=== PATIENT | female | born 1935 | race Caucasian/White ===

== ENCOUNTER 2016-03-29 01:33 | Day surgery (SDC) | payer MEDICARE, OTHER ==
[2016-03-29] VITALS (11 sets, daily range): BP systolic 98–119; BP diastolic 56–74; PULSE 70–76; RESP 14–20; O2SAT 95–100
[~2016-03-29] VITALS: Ht 160 cm; Wt 67.2 kg
[~2016-03-29 01:33] MED LIST: ACET1TAB12 PO; ATEN100T PO; BIOT10004 PO; BUME2TAB3 PO; CALC-140 PO; CALC500T9 PO; CHOL100045 PO; CREST10T PO; FLEC100T2 PO; SPIR25TA PO; WARF4TAB6 PO; ZYL100 PO
[2016-03-29] MEDS ORDERED: fentaNYL-PF 50 mCg/mL 2 mL Inj ONE (01:34)
[2016-03-29] MEDS ORDERED: Propofol 10,000 mCg/mL 20 mL Inj ONE (01:34)
[2016-03-29] MEDS ORDERED: Lactated Ringer's 1,000 ML IV ONE (06:00)
--- NOTE | 2016-03-29 07:19 | PCM.HPANE ---
Patient Data Surgeon Admitting Provider: Attending Provider:Neymar Garsia MD Primary Care Physician:Sha Melara MD Other Provider:[facility] Reason for Visit Mitral Valve Insufficiency Ht/WT & BMI Body Mass Index Allergies Coded Allergies: Procaine HCl (Verified Allergy, Intermediate, Nausea, 02/05/16) clopidogrel bisulfate (Verified Allergy, Intermediate, Rash,Itching,, 02/04) Past Anesthesia History Anesthesia History: Denies:: Anesthesia Reactions Diabetes History Hx Diabetes?: No MRSA MRSA: No Medications Blood Thinner: Coumadin Hypertension Medication: Yes Home Meds Incl Beta Duncan: Yes Date Beta Duncan Taken: Mar 29, 2016 Time Beta Duncan Taken: 06:00 Active Scripts Bumetanide 2 Mg Tablet2 Mg PO DAILY #30 TABLET Ref 0 Prov:Neftali Amaral 02/09/16 Spironolactone (Aldactone)25 Mg [id number] Mg PO DAILY #30 TABLET Prov:Neftali Amaral 02/09/16 Flecainide Acetate 100 Mg [id number] Mg PO BID #60 TABLET Prov:Neftali Amaral 02/09/16 Reported Medications Calcium Carbonate (Tums)500 Mg Tab.pxch574 Mg PO PRN PRN For Dyspepsia or Heartburn 30 Days 02/05/16 Allopurinol 100 Mg Mfwqeq728 Mg PO DAILY Ref 0 02/05/16 Rosuvastatin Calcium (Crestor)10 Mg Saekgh33 Mg PO HS 30 Days Ref 0 02/05/16 Cholecalciferol (Vitamin D3) (Vitamin D)1,000 Unit Capsule1,000 Unit PO HS #1 BOTTLE Ref 0 02/05/16 Warfarin Sodium 4 Mg Tablet4 Mg PO DAILY 30 Days Ref 0 02/05/16 Calcium Carbonate/Vitamin D3 (Calcium + Vitamin D Tablet)1 Each Tablet1 Each PO BID 02/05/16 Biotin 1,000 Mcg Tab.chew2,500 Mcg PO DAILY 02/05/16 Acetaminophen/Codeine 300-30mg (Tylenol/Codeine #3)1 Each Tablet1 Tablet PO Q4H PRN Pain Ref 0 02/05/16 Atenolol 100 Mg [id number] Mg PO DAILY Ref 0 02/05/16 History History of ENT Problems?: Yes HEENT History: Positive for:: Cataracts (surgery for both eyes) Dysphagia (with past strokes) Hx of Heart Problems?: Yes Cardiovascular History: Positive for:: Cardiac Surgery (pacer) Congestive Heart Failure ("Acute CHF episodes") Edema (trace) Heart Murmur Hypertension Irregular Heartbeat Pacemaker Other Cardiac History: admitted with CHF exacerbation. 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 Hx Musculoskeletal Problems?: Yes Musculoskeletal History: Denies:: Joint Replacement Hx of Psycho/Social Problems?: No Hx Any Other Health Problems?: No Other History: Positive for:: Hospitalization Denies:: Cancer Endocrine Disease Thyroid Disease History Blood Transfusions: Denies:: Blood Transfusions Hx Diabetes: No Hx Alcohol Use: YesHx Substance Use: No Smoking Status: Unknown if Ever Smoker Have You Smoked inLast 12 mo: No Stop/Bang Risk Assessment Category Category 1A: Patient has history of documented sleep apnea, and HAS NOT received any narcotic, sedative or anesthesia administration during this stay. Category 1B: Patient has history of documented sleep apnea, and HAS received any narcotic , sedative or anesthesia administration during this stay Category 2: Patient has SUSPECTED Obstructive Sleep Apnea, and HAS received any narcotic , sedative or anesthesia administration during this stay. Category 3: Patient has SUSPECTED Obstructive Sleep Apnea and HAS NOT received narcotic, sedative or anesthesia administration during this stay. Category 4: Outpatient in Procedural Areas with known sleep apnea or who screen positive for High Risk via the STOP/BANG questionnaire. Exam Exam General Appearance: Alert, Oriented X3, Cooperative, No Acute Distress HEENT/AIRWAY: MP 2, Neck Movement (FROM), Mouth Opening (3FB) Lungs: Normal Air Movement Heart: Exam Unremarkable Plan Impression Patient chart reviewed, patient interviewed and anesthestic plan with risks, benefits, and alternatives discussed, and informed consent obtained. ASA Physical Status: ASA3 Severe Disease (CHF, rhuematoid arthritis) Anesthetic Plan: MAC Bene/Risks/Altern/Consents: Yes HP Complete Prior to Induction: Yes Du Perez MD Mar 29, 2016 07:19
[2016-03-29 08:08] LABS: BASOPHILS % (AUTO) 1.6 % (0-3); EOSINOPHILS % (AUTO) 9.7 % (0-5); Mean Corpuscular Hemoglobin 30.3 pg (27.0-35.0); Mean Corpuscular Volume 95.9 fL (81-100); NEUTROPHILS % (AUTO) 45.8 % (40-74); Platelet Count 207 bil/L (150-400)
[2016-03-29] MEDS ORDERED: BUME1TAB4 PO (08:39)
[2016-03-29] MEDS ORDERED: SPIR25TA3 PO (08:41)
--- NOTE | 2016-03-29 08:43 | NUR ---
Admit note: Patient ambulates into department with family. Their questions are answered , IV's X 2 started and labs are drawn. PT/INR completed. She is prepped for KYLEIGH and heart cath TF.
[2016-03-29] MEDS ORDERED: Benzoc-Butamben-Tetraca Spray 20 Gm Spray TOPICAL ONE (08:56)
[2016-03-29 09:18] LABS: INR 1.67 ratio
--- NOTE | 2016-03-29 09:24 | NUR ---
Post KYLEIGH: Report received from Anaesthesia. Patient tolerated procedure. She is sleepy but arouses. Skin W/D, respirations reqular.
--- NOTE | 2016-03-29 09:27 | PCM.ANEP2 ---
Post Anesthesia Evaluation ASA/CMS Post Anesthesia VS in Patient's Normal Range?: Yes Resp Stable; Airway Patent?: Yes CV Function & Hydration Stable: Yes Mental Status Recovered?: Yes Pain control Satisfactory?: Yes N/V Control Satisfactory?: Yes Du Perez MD Mar 29, 2016 09:27
--- NOTE | 2016-03-29 09:27 | PCM.ANEP1 ---
Post Anesthesia Phase 1 PACU Phase 1 Assessment Vital Signs see anesthesia record Vital Signs Date Time Temp Pulse Resp B/P Pulse Ox O2 Delivery O2 Flow Rate FiO2 03/29/16 09:25 74 16 107/63 99 Nasal Cannula 3.00 03/29/16 09:22 03/29/16 09:22 72 18 99/56 99 Nasal Cannula 3.00 03/29/16 08:29 37.0 70 15 116/69 96 Room Air Anesthetic Administered: MAC Level of Alertness: Awake, talking GILBERT's with Equal Strength: Yes Pain: No Nausea or Vomiting: No Oxygen Delivery: Nasal Cannula Lungs: Normal Air Movement Dermatome Level: Full Sensation Du Perez MD Mar 29, 2016 09:27
[2016-03-29] MEDS ORDERED: Heparin 5,000 Units/500 mL NS Premix IV ONE (09:32)
[2016-03-29] MEDS ORDERED: Heparin 1,000 Units/500 mL NS Premix IV ONE (09:32)
[2016-03-29] MEDS ORDERED: 0.9% Sodium Chloride 50 ML ONE (09:35)
--- NOTE | 2016-03-29 11:02 | NUR ---
Post cardiac cath: Patient returns from [employer]. She is alert and denies pain. Right venous access site is dry and soft. She denies pain. 100% atrially paced activity noted on monitor.
--- NOTE | 2016-03-29 12:29 | DRSVH ---
[facility] [address] [place] [address] Echocardiogram Report Name: PAULA JEAN Date: Height: 62 in Hospital Exam Location: [facility] Weight: 153 lb Gender: Female BSA: 1.7 m2 : 1935 Age: 81 yrs Reason For Study: Mitral Valve- Regurgitation Ordering Physician: Performed By: Yoli Jung Interpretation Summary The mitral valve leaflets appear mildly thickened, but open well. There is mild to moderate mitral annular calcification. There is moderate to severe mitral regurgitation. There is an eccentric jet of mitral regurgitation that is directed posterolaterially. There is moderate tricuspid regurgitation. Right ventricular systolic pressure is estimated to be least 37 mmHg plus the clinically estimated CVP which cannot be estimated on this exam. No other echocardiographic abnormalities seen. The MR is likely due to impared posterior leaflet mobility due to sclerosis. Procedure: Informed consent for Transesophageal Echocardiogram, and use of a contrast agent as needed, was obtained prior to the procedure. The patient was brought to the [facility] in a fasting state. An intravenous line was placed. A topical anesthetic agent was used for oropharangeal anesthesia. A bite block was inserted. Sedation was managed by anesthesiologist; see anesthesiology notes for details. A multifrequency, multiplane transesopheageal echocardiographic endoscope was inserted and manipulated in the standard fashion to achieve multiplane views. The transesophageal probe was passed without difficulty. A 2D transesophageal echocardiogram with spectral and color flow Doppler was performed. The patient's vital signs, including blood pressure, heart rate, pulse oximetry and cardiac rhythm were monitored throughout the procedure and remained stable. The patient tolerated the procedure well without evidence of orophangeal or esophageal trauma. Left Ventricle: The left ventricle is normal in size, wall thickness, and systolic function without any focal wall motion abnormalities. Right Ventricle: The right ventricle is normal in size, thickness and function. Atria: No thrombus is detected in the left atrial appendage. The left atrium is mildly dilated. There is a catheter/pacemaker lead seen in the right atrium. The interatrial septum is intact with no evidence for an atrial septal defect. There is no Doppler evidence for an interatrial shunt. Mitral Valve: The mitral valve leaflets appear mildly thickened, but open well. The mitral valve leaflets are slightly calcified. There is mild to moderate mitral annular calcification. There is no evidence of mitral valve prolapse. There is moderate to severe mitral regurgitation. There is an eccentric jet of mitral regurgitation that is directed posterolaterially. Aortic Valve: The aortic valve is normal in structure and function. No aortic regurgitation is present. Tricuspid Valve: The tricuspid valve leaflets are thin and pliable. Right ventricular systolic pressure is estimated to be least 37 mmHg plus the clinically estimated CVP which cannot be estimated on this exam. There is moderate tricuspid regurgitation. Pulmonic Valve: The pulmonic valve is not well seen, but is grossly normal. There is trace pulmonic regurgitation. Great Vessels: Mild atherosclerotic plaque(s) in the descending aorta. Doppler Measurements & Calculations TR max elaine: 302.3 cm/sec TR max P.5 mmHg Reading Physician:09:51 AM
--- NOTE | 2016-03-29 13:02 | NUR ---
Discharge note: Patient has remained pain-free post cardiac cath. Right groin is soft and dry. Reviewed DC instructions with patient and . Hep locks X 2 DC'd. She ambulates out of department. Home with .
--- NOTE | 2016-05-12 13:15 | CS94 ---
[address] [address] DIAGNOSTIC CARDIAC CATHETERIZATION PATIENT: PAULA JEAN : 1935 MR#: [id number] ADMIT: 03/29/2016 JOB ID: [id number] SERVICE DATE: 03/29/2016 PROCEDURES: 1. Right heart catheterization. 2. Thermodilution cardiac outputs. PROCEDURE IN DETAIL: This patient is brought to the catheterization for a right heart catheterization for evaluation of her mitral insufficiency and symptoms of dyspnea. Following normal prep and drape procedure, her right common femoral vein was accessed with a single wall puncture and an 8-Norwegian 10 cm sheath was inserted without difficulty. The right heart catheter was then advanced to the right heart chambers, where measurements were obtained and positioned out into the right pulmonary artery. Pulmonary capillary wedge pressures were obtained and thermodilution cardiac output measurements performed. Blood samples were then obtained for calculation of patient's A-VO2 content difference. At the end of the procedure, all catheters were removed, and the patient was transferred to the recovery area for monitoring. FINDINGS: The patient's pulmonary capillary wedge pressure averaged 24 mmHg with an A-wave of 18 and a prominent V-wave of 45. Pulmonary artery pressures were moderately increased with a PA pressure of 55/19. Mixed venous O2 saturation was 63%. There was no pulmonic valve gradient, and the mean right atrial pressure was 7. Thermodilution cardiac output was 4.4 L/min, with a cardiac index of 2.6 L/min/m2. A-VO2 content difference was very slightly increased at 5.9 volumes percent. IMPRESSION: This patient has evidence of moderate to moderately severe mitral regurgitation with a normal cardiac output and index. Pulmonary artery pressures are moderately increased. These results will be reviewed with the patient and arrangements for outpatient followup will be made.
== END 2016-03-29 23:59 | disposition home or self-care (01) ==
LOC: SOUO 01:33
PROVIDERS: ATTEND Internal Medicine Cardiovascular Disease
DX: I34.0 Nonrheumatic mitral (valve) insufficiency (principal); I08.1 Rheumatic disorders of both mitral and tricuspid valves; Z86.73 Personal history of transient ischemic attack (TIA), and cerebral infarction without residual deficits; M06.9 Rheumatoid arthritis, unspecified; I48.0 Paroxysmal atrial fibrillation; I12.9 Hypertensive chronic kidney disease with stage 1 through stage 4 chronic kidney disease, or unspecified chronic kidney disease; N18.3 Chronic kidney disease, stage 3 (moderate); Z79.01 Long term (current) use of anticoagulants; E78.5 Hyperlipidemia, unspecified
CPT/HCPCS: 36415; 80048; 85025; 85610; 93451; C1769; C8925; J1644; J3010

== ENCOUNTER 2016-05-12 01:24 | Day surgery (SDC) | payer MEDICARE, OTHER ==
[2016-05-12] VITALS (15 sets, daily range): BP systolic 86–101; BP diastolic 51–75; PULSE 62–93; RESP 10–20; O2SAT 91–99
[~2016-05-12] VITALS: Ht 160 cm; Wt 68.0 kg
[~2016-05-12 01:24] MED LIST changes: +BUME1TAB4 PO; -BUME2TAB3 PO; -FLEC100T2 PO; -SPIR25TA PO; +SPIR25TA3 PO
[2016-05-12] MEDS ORDERED: Propofol 10,000 mCg/mL 20 mL Inj ONE (01:25)
[2016-05-12] MEDS ORDERED: EPHEDrine/NS 5 mg/mL 5 mL Syringe ONE (01:25)
[2016-05-12] MEDS ORDERED: Glycopyrrolate 0.2 mg/mL 5 mL Inj ONE (01:25)
[2016-05-12] MEDS ORDERED: Rocuronium 10 mg/mL 5 mL Inj ONE (01:25)
[2016-05-12] MEDS ORDERED: Neostigmine 1 mg/mL 10 mL Inj ONE (01:25)
[2016-05-12] MEDS ORDERED: Ondansetron 2 mg/mL 2 mL Inj ONE (01:25)
[2016-05-12] MEDS ORDERED: fentaNYL-PF 50 mCg/mL 2 mL Inj ONE (01:25)
[2016-05-12] MEDS ORDERED: Dexamethasone 4 mg/mL Inj ONE (01:25)
[2016-05-12] MEDS ORDERED: Lactated Ringer's 1,000 ML IV SCH (05:00)
[2016-05-12 07:38] LABS: BASOPHILS % (AUTO) 1.4 % (0-3); Mean Corpuscular Hemoglobin 29.7 pg (27.0-35.0); Mean Corpuscular Volume 93.2 fL (81-100); NEUTROPHILS % (AUTO) 54.3 % (40-74); Platelet Count 221 bil/L (150-400)
[2016-05-12 07:50] LABS: INR 2.63 ratio
[2016-05-12] MEDS ORDERED: Vancomycin 1,000 mg/200 mL NS IV SCH (08:00)
[2016-05-12] MEDS ORDERED: Benzoc-Butamben-Tetraca Spray 20 Gm Spray TOPICAL PRN (08:00)
[2016-05-12] MEDS ORDERED: CALC600T12 PO (08:43)
[2016-05-12] MEDS ORDERED: CHOL200047 PO (08:43)
[2016-05-12] MEDS ORDERED: WARF1TAB6 PO (08:43)
[2016-05-12] MEDS ORDERED: WARF3TAB7 PO (08:43)
[2016-05-12] MEDS ORDERED: Heparin 1,000 Units/500 mL NS Premix IV ONE ×2 (11:30→13:23)
[2016-05-12] MEDS ORDERED: Heparin 25,000 Unit/500 mL 0.45% NS Premix IV ONE (11:30)
[2016-05-12] MEDS ORDERED: Heparin 1,000 Unit/1,000mL NS Premix IV ONE (11:30)
[2016-05-12] MEDS ORDERED: 0.9% Sodium Chloride 1,000 ML ONE (11:30)
[2016-05-12] MEDS ORDERED: Heparin 1,000 Unit/mL 10 mL Inj ONE (12:15)
[2016-05-12] MEDS ORDERED: Heparin 10,000 Unit/1,000 mL NS Premix IV ONE (12:31)
--- NOTE | 2016-05-12 12:47 | PCM.HPANE ---
Patient Data Surgeon Admitting Provider: Attending Provider:Kenn Srinivasan MD Primary Care Physician:Sha Melara MD Other Provider: Reason for Visit Persistent Atrial Fibrillation Ht/WT & BMI Height (Feet): 5 Height (Inches): 3.00 Weight (Kilograms): 68.000 Body Mass Index 26.56 Allergies Coded Allergies: flecainide (Verified Allergy, Severe, Nausea,Vomiting, 05/12/16) Gold Salts (Verified Allergy, Intermediate, Rash, 05/12/16) Procaine HCl (Verified Allergy, Intermediate, Nausea, 02/05/16) clopidogrel bisulfate (Verified Allergy, Intermediate, Rash,Itching,, 02/04) Past Anesthesia History Anesthesia History: Denies:: Anesthesia Reactions Diabetes History Hx Diabetes?: No MRSA MRSA: No Medications Blood Thinner: Coumadin Hypertension Medication: Yes Home Meds Incl Beta Duncan: Yes Previous Beta Duncan Dose >24: Previous Dose <24 Hours Reported Medications Warfarin Sodium 3 Mg Tablet3 Mg PO DAILY 30 Days Ref 0 patient takes total 3.5 mg p.o daily 05/12/16 Warfarin Sodium 1 Mg Tablet0.5 Mg PO DAILY 30 Days Ref 0 05/12/16 Cholecalciferol (Vitamin D3) (Vitamin D3)2,000 Unit Capsule2,000 Unit PO DAILY 05/12/16 Calcium Carbonate (Calcium)600 Mg Swxlud176 Mg PO BID 05/12/16 Spironolactone 25 Mg Vvcxth30.5 Mg PO DAILY #30 TABLET Ref 0 03/29/16 Bumetanide 1 Mg Tablet1 Mg PO DAILY Ref 0 03/29/16 Allopurinol 100 Mg Gruuyn875 Mg PO DAILY Ref 0 02/05/16 Rosuvastatin Calcium (Crestor)10 Mg Pcrbis23 Mg PO HS 30 Days Ref 0 02/05/16 Biotin 1,000 Mcg Tab.chew2,500 Mcg PO DAILY 02/05/16 Acetaminophen/Codeine 300-30mg (Tylenol/Codeine #3)1 Each Tablet1 Tablet PO Q4H PRN Pain Ref 0 02/05/16 Atenolol 100 Mg Gydnkx840 Mg PO BID Ref 0 02/05/16 Discontinued Reported Medications Calcium Carbonate (Tums)500 Mg Tab.qikf290 Mg PO PRN PRN For Dyspepsia or Heartburn 30 Days 02/05/16 Cholecalciferol (Vitamin D3) (Vitamin D)1,000 Unit Capsule1,000 Unit PO HS #1 BOTTLE Ref 0 02/05/16 Warfarin Sodium 4 Mg Tablet4 Mg PO DAILY 30 Days Ref 0 02/05/16 Calcium Carbonate/Vitamin D3 (Calcium + Vitamin D Tablet)1 Each Tablet1 Each PO BID 02/05/16 History History of ENT Problems?: Yes HEENT History: Positive for:: Cataracts (surgery for both eyes) Dysphagia (with past strokes) Denies:: Sinus Problem Hx of Heart Problems?: Yes Cardiovascular History: Positive for:: Cardiac Surgery (DDD pacemaker) Congestive Heart Failure ("Acute CHF episodes"; most recent echo EF 45-55% and moderate MR, pulm HTN) Edema (trace) Heart Murmur (Mitral v) Hypertension Irregular Heartbeat (A fib; tachy-julio césar) Pacemaker Denies:: Chest Pain Other Cardiac History: pt here for atrial fib ablation today Hx of Respiratory Problem?: Yes Respiratory History: Positive for:: Chest Surgery (exploratory lung surgery) 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 Hx Musculoskeletal Problems?: Yes Musculoskeletal History: Positive for:: Back Injury (Fx L-3) Denies:: Joint Replacement Hx of Psycho/Social Problems?: No Psycho Social History: Denies:: Anxiety Hx Depression Hx Surgeries?: Yes (Hyster; kidney stones) Hx Any Other Health Problems?: No Other History: Positive for:: Hospitalization (Feb 2016 for CHF) Denies:: Cancer Endocrine Disease Thyroid Disease History Blood Transfusions: Positive for:: Accept Blood Products? Denies:: Blood Transfusions Hx Diabetes: No Hx Alcohol Use: Yes (glass of wine nightly)Hx Substance Use: No Smoking Status: Former Smoker Have You Smoked inLast 12 mo: No Stop/Bang MISSAEL Risk Assessment: Low Risk, <3 Yes Risk Assessment Category Category 1A: Patient has history of documented sleep apnea, and HAS NOT received any narcotic, sedative or anesthesia administration during this stay. Category 1B: Patient has history of documented sleep apnea, and HAS received any narcotic , sedative or anesthesia administration during this stay Category 2: Patient has SUSPECTED Obstructive Sleep Apnea, and HAS received any narcotic , sedative or anesthesia administration during this stay. Category 3: Patient has SUSPECTED Obstructive Sleep Apnea and HAS NOT received narcotic, sedative or anesthesia administration during this stay. Category 4: Outpatient in Procedural Areas with known sleep apnea or who screen positive for High Risk via the STOP/BANG questionnaire. Exam Exam Vital Signs Vital Signs Date Time Temp Pulse Resp B/P Pulse Ox O2 Delivery O2 Flow Rate FiO2 05/12/16 07:40 36.4 77 18 99/69 97 Room Air General Appearance: Alert, Oriented X3, Cooperative, No Acute Distress HEENT/AIRWAY: MP 3 Lungs: Clear to Auscultation, Normal Air Movement Heart: Exam Unremarkable, Regular Rate/Rhythm, No Murmurs/Rubs/Gallops Meds/Labs/Diagnostics Admission Meds Current Medications Sodium Chloride (Normal Saline) 1,000 ml @ 100 mls/hr Q10H IV Last administered on 05/12/16t 09:01; Start 05/12/16 at 08:00 Labs Test 05/12/16 07:00 White Blood Count 6.4th/mm3 (3.8-10.1) Red Blood Count 3.84mil/mm3 (3.90-5.20) Hemoglobin 11.4g/dL (12.0-15.6) Hematocrit 35.8% (35.0-46.0) Mean Corpuscular Volume 93.2fL (81-100) Mean Corpuscular Hemoglobin 29.7pg (27.0-35.0) Mean Corpuscular Hemoglobin Concent 31.8% (32.0-37.0) Red Cell Distribution Width 14.0% (12.3-15.4) Platelet Count 221bil/L (150-400) Neutrophils (%) (Auto) 54.3% (40-74) Lymphocytes (%) (Auto) 24.1% (14-46) Monocytes (%) (Auto) 11.0% (4-12) Eosinophils (%) (Auto) 9.0% (0-5) Basophils (%) (Auto) 1.4% (0-3) Prothrombin Time 28.7sec (8.1-12.5) Prothromb Time International Ratio 2.63ratio Sodium Level 140mEq/L (134-144) Potassium Level 4.4mEq/L (3.5-5.2) Chloride Level 103mEq/L (97-108) Carbon Dioxide Level 23mmol/L (18-29) Blood Urea Nitrogen 43mg/dL (8-27) Creatinine 1.65mg/dL (0.57-1.00) Estimat Glomerular Filtration Rate 43mL/min (>59) Glucose Level 126mg/dL (60-99) Calcium Level 9.4mg/dL (8.5-10.1) Plan Impression Patient chart reviewed, patient interviewed and anesthestic plan with risks, benefits, and alternatives discussed, and informed consent obtained. ASA Physical Status: ASA3 Severe Disease Anesthetic Support Modalities: [place] [employer] Scope (available), Arterial Line (post- induction) Anesthetic Plan: GA Bene/Risks/Altern/Consents: Yes HP Complete Prior to Induction: Yes Willie Best MD May 12, 2016 10:57
[2016-05-12] MEDS ORDERED: Protamine Sulfate 10 mg/mL 5 mL Inj ONE (14:36)
[2016-05-12] MEDS ORDERED: Ondansetron 2 mg/mL 2 mL Inj IVPUSH PRN (15:05)
[2016-05-12] MEDS ORDERED: HYDROcodone-APAP 5-325 mg Tablet PO PRN (15:05)
--- NOTE | 2016-05-12 15:40 | PCM.ANEP1 ---
Post Anesthesia Phase 1 PACU Phase 1 Assessment Vital Signs Vital Signs Date Time Temp Pulse Resp B/P Pulse Ox O2 Delivery O2 Flow Rate FiO2 05/12/16 15:34 35.6 85 12 98/64 95 Room Air Anesthetic Administered: GA Level of Alertness: Awake, talking GILBERT's with Equal Strength: Yes Pain: No Nausea or Vomiting: No Oxygen Delivery: Simple Mask Lungs: Clear to Auscultation, Normal Air Movement Summary VSS Willie Best MD May 12, 2016 15:40
--- NOTE | 2016-05-12 15:41 | PCM.ANEP2 ---
Post Anesthesia Evaluation ASA/CMS Post Anesthesia VS in Patient's Normal Range?: Yes Resp Stable; Airway Patent?: Yes CV Function & Hydration Stable: Yes Mental Status Recovered?: Yes Pain control Satisfactory?: Yes N/V Control Satisfactory?: Yes Willie Best MD May 12, 2016 15:41
--- NOTE | 2016-05-12 16:13 | PROCED ---
[address] [address] PROCEDURE NOTE PATIENT: PAULA JEAN : 1935 MR#: [id number] ADMIT: 05/12/2016 JOB ID: [id number] DATE OF SERVICE: 05/12/2016 PREOPERATIVE DIAGNOSIS(ES): 1. Symptomatic drug refractory paroxysmal atrial fibrillation. 2. Sick sinus syndrome with dual-chamber pacemaker in place. POSTOPERATIVE DIAGNOSIS(ES): 1. Symptomatic drug refractory paroxysmal atrial fibrillation. 2. Sick sinus syndrome with dual-chamber pacemaker in place. PROCEDURES PERFORMED: 1. Comprehensive electrophysiology study. 2. Three-dimensional electroanatomical mapping using the CARTO 3 system. 3. Atrial fibrillation ablation with pulmonary vein isolation. 4. Transseptal puncture x2. 5. Intracardiac echocardiography. 6. Barium esophagram. 7. Cardioversion. 8. Sonia-procedure pacemaker programming and reprogramming. 9. Fluoroscopy. SURGEON: eKnn Srinivasan MD, electrophysiology attending. ASSISTANTS: Mir Jolly, Aquiles Leal PA-C, Ginette Srinivasan. ANESTHESIA: General endotracheal anesthesia was undertaken for this case. INDICATION: The patient is a pleasant 81-year-old woman with significant mitral regurgitation being addressed with potential mitral clip procedure, dominant paroxysmal symptomatic atrial fibrillation which is very refractory, sick sinus syndrome with a dual-chamber pacemaker in place. After discussion of risks and benefits of catheter-based mapping ablation for her atrial fibrillation, she opted to proceed. PROCEDURAL DESCRIPTION: Following informed signed consent, the patient was taken to the EP laboratory in a fasting, nonsedated state, where she was prepped and draped in the usual sterile fashion. She underwent a preprocedural transesophageal echocardiogram by Dr. Patten, confirming lack of intracardiac thrombus. Please see separate dictated report for the details of that procedure. The bilateral groins were then infiltrated with 1% lidocaine. Then, using modified Seldinger technique, two 8-Icelandic sheaths were inserted into the right femoral vein. A 7 and a 10.5-Icelandic sheaths were inserted into the left femoral vein. Under fluoroscopic guidance, a deflectable decapolar catheter was advanced in the coronary sinus with most proximal bipoles at the os of the sinus. An intracardiac echocardiography probe was advanced to the RV outflow tract and used to visualize the pericardial space. A trivial, hemodynamically insignificant pericardial effusion was noted at the onset of the case prior to any ablation. The ICE probe was pulled back into the right atrium and used to visualize the interatrial septum in anticipation of transseptal puncture. Two transseptal punctures were performed in an identical fashion. Each of the short 8-Icelandic sheaths in the right groin were exchanged over a long wire for a Stevenson sheath dilator and a [place] needle. The entire system was used to engage the interatrial septum. Then, under fluoroscopic guidance and pressure guidance, the septum was traversed twice to deploy the two Stevenson sheaths into the left atrium. The patient was heparinized for a goal ACT of 350 to 400 seconds for the entire time we were in the left atrium following the first and preceding the second transseptal puncture. A resurvey of the pericardial space showed no evidence of change in the tiny effusion. Through the two [place] sheaths an F curve SmartTouch irrigated ablation catheter was advanced as was a PentaRay 20 pole catheter. A three-dimensional electroanatomical mapping at the left atrium, pulmonary veins, and left atrial appendage was created using the CARTO 3 system. The patient was in atrial fibrillation at the onset of the case. The left common pulmonary vein was isolated first for entrance block. The patient was then cardioverted with a 200 joule biphasic synchronized shock. Exit block was confirmed. We then addressed entrance and exit blocks in the right upper and right lower pulmonary veins in the order. Once entrance and exit blocks were achieved in all pulmonary veins, we blocked the left atrium, turned off heparin and resurveyed the pericardial space confirmed lack of effusion. During course of this study, we did a comprehensive electrophysiology study with right atrial pacing recording, right ventricular packing recording, His bundle recording and left atrial pacing recording. The patient's pacemaker was interrogated pre and post procedurally showing intact lead parameters, and she was switched from VVI backup pacing to DDDR pacing at the offset of the case. All catheters and sheaths removed once the patient's heparin was reversed with protamine. She was transferred to the [facility] for monitoring and bedrest. COMPLICATIONS: None. ESTIMATED BLOOD LOSS: 10 to 20 cc. FINDINGS: 1. Baseline rhythm is atrial fibrillation. Post ablation, she was in atrially paced, ventricularly sensed rhythm with a QRS duration of 75 msec. 2. Intracardiac intervals: AH interval 149 msec. HV 54 msec. 3. Retrograde conduction: 2:1 AV conduction at 600 msec with concentric atrial activation. 4. Atrial fibrillation ablation with pulmonary vein isolation entrance and exit blocks described above for all four pulmonary veins. Please note that a barium esophagram was performed prior to any ablation posterior aspect of the right lower pulmonary vein. Lower wattage shorter duration portillo were placed in this area while monitoring the esophageal temperature. IMPRESSION: Successful pulmonary vein isolation procedure for symptomatic refractory atrial fibrillation. PLAN: 1. Bedrest x4 hours. 2. Monitoring overnight. 3. Continue warfarin. 4. Amiodarone 200 mg p.o. b.i.d. for two weeks, followed by 200 mg daily thereafter for the first three months post ablation. 5. Follow up with Aquiles Leal PA-C in one month, and with me in three months. ATTENDING STATEMENT: Kenn Srinivasan MD, electrophysiology attending, was present for and supervised/performed all aspects of this procedure.
--- NOTE | 2016-05-12 18:35 | NUR ---
STEPHEN Care of patient assumed on return from irrigation laborer at 1535. Patient sleeping but wakes to voice. Denies pain. Family at bedside. Right and left groin without bleeding or hematoma. Pedal pulses present. Taking sips PO. Díaz catheter in place. Transferred to room 2021 by bed at 1815. Report to receiving RN.
--- NOTE | 2016-05-12 18:46 | NUR ---
Transfer to [facility] Pt up to floor from [facility] at 18:20. Report received from SUNG Pantoja. Pt placed on tele, vitals taken. SPo2 85% on RA, placed on 3L NC, SPO2 up to 95%. Pt is hypotensive 90s/60s, reports this is normal for her. Bedrest till 1930.
[2016-05-12] MEDS ORDERED: Codeine-APAP 30-300 mg Tablet PO PRN (19:20)
--- NOTE | 2016-05-12 19:39 | PCM.CONPHA ---
Subjective Date of Service: May 12, 2016 Reason for Pharmacy Consult: Anticoagulation Management Objective Vital Signs Date Time Temp Pulse Resp B/P Pulse Ox O2 Delivery O2 Flow Rate FiO2 05/12/16 18:33 36.4 62 16 90/51 94 Nasal Cannula 3.00 05/12/16 18:32 80 05/12/16 18:03 77 16 88/51 05/12/16 18:02 77 16 88/51 94 Room Air 05/12/16 17:30 73 14 89/54 05/12/16 17:30 73 14 89/54 95 Oxy Mask 6.00 05/12/16 17:00 72 12 86/75 05/12/16 17:00 72 12 86/75 95 Oxy Mask 6.00 05/12/16 16:45 72 12 95/51 96 Oxy Mask 6.00 05/12/16 16:45 72 12 95/51 05/12/16 16:30 70 10 91/55 05/12/16 16:30 70 10 91/55 95 Oxy Mask 6.00 05/12/16 16:15 70 12 87/57 99 Oxy Mask 6.00 05/12/16 16:15 70 12 87/57 05/12/16 16:00 72 18 98/60 98 Oxy Mask 6.00 05/12/16 16:00 72 18 98/60 05/12/16 15:45 85 20 101/59 91 Nasal Cannula 4.00 05/12/16 15:45 85 20 101/59 05/12/16 15:40 93 10 97/66 94 mask 10.00 05/12/16 15:40 Simple Mask 05/12/16 15:34 35.6 85 12 98/64 95 mask 10.00 05/12/16 07:40 36.4 77 18 99/69 97 Room Air Weight (Kilograms): 68.000 Height (Feet): 5 Height (Inches): 3.00 Test 05/12/16 07:00 White Blood Count 6.4th/mm3 (3.8-10.1) Red Blood Count 3.84mil/mm3 (3.90-5.20) Hemoglobin 11.4g/dL (12.0-15.6) Hematocrit 35.8% (35.0-46.0) Mean Corpuscular Volume 93.2fL (81-100) Mean Corpuscular Hemoglobin 29.7pg (27.0-35.0) Mean Corpuscular Hemoglobin Concent 31.8% (32.0-37.0) Red Cell Distribution Width 14.0% (12.3-15.4) Platelet Count 221bil/L (150-400) Neutrophils (%) (Auto) 54.3% (40-74) Lymphocytes (%) (Auto) 24.1% (14-46) Monocytes (%) (Auto) 11.0% (4-12) Eosinophils (%) (Auto) 9.0% (0-5) Basophils (%) (Auto) 1.4% (0-3) Prothrombin Time 28.7sec (8.1-12.5) Prothromb Time International Ratio 2.63ratio Sodium Level 140mEq/L (134-144) Potassium Level 4.4mEq/L (3.5-5.2) Chloride Level 103mEq/L (97-108) Carbon Dioxide Level 23mmol/L (18-29) Blood Urea Nitrogen 43mg/dL (8-27) Creatinine 1.65mg/dL (0.57-1.00) Estimat Glomerular Filtration Rate 43mL/min (>59) Glucose Level 126mg/dL (60-99) Calcium Level 9.4mg/dL (8.5-10.1) Assessment/Plan Assessment/Plan Warfarin per Rx Indication: A-Fib INR Goal : 2 - 3 Today's INR: 2.63; Therapeutic range so will continue home dose of 3.5mg Daily INR ordered Dung Serrato PharmD May 12, 2016 19:39
[2016-05-12] MEDS ORDERED: Furosemide 10 mg/mL 2 mL Inj IV ONE (22:00)
[2016-05-13 00:34] VITALS: BP 93/60; PULSE 68; RESP 16; O2SAT 98
--- NOTE | 2016-05-13 00:46 | NUR ---
Post cath Patient resting in bed, denies any chest pain and groin pain, groin sites intact, very scant oozing under bio-occlusive dressing, pulses palpable, BP remained stable with reading of 93/60 after 20mg Lasix and Amiodarone PO, orders to hold Atenolol from Dr. Srinivasan cardiology, pleasant and cooperative, admission screening done, no distress noted, will continue to monitor. Addendum: 05/13/16 at 0053 by CASE RINCON RN Amended: Links added.
[2016-05-13 04:06] LABS: INR 2.98 ratio
--- NOTE | 2016-05-13 04:25 | NUR ---
Report Report given to Andressa ALMARAZ, all questions answered, patient resting in bed, no distress noted.
[2016-05-13 05:57] VITALS: BP 84/56; PULSE 72; RESP 16; O2SAT 95
[2016-05-13 06:16] VITALS: PULSE 82
--- NOTE | 2016-05-13 06:29 | NUR ---
Blood Pressure Pt's blood pressure is 84/56. She is asymptomatic. She states that her normal BP is in the 90s systolic. Awake and drinking water. Visiting with her . Understands to speak with the nurse prior to getting up OOB> Will cont to monitor
[2016-05-13] MEDS ORDERED: Pantoprazole 40 mg ER24 Tablet PO SCH (06:30)
[2016-05-13 07:13] VITALS: O2SAT 94
[2016-05-13 08:00] VITALS: BP 106/68; PULSE 78; PULSE 84; RESP 16; O2SAT 96
[2016-05-13] MEDS ORDERED: Calcium Carbonate (Oyster Shell) 500 mg Tablet PO SCH (08:00)
--- NOTE | 2016-05-13 09:15 | PCM.DIMED ---
Discharge Instructions Date of Service May 13, 2016 Dates of Hospitalization Discharge Diagnosis Discharge Diagnosis Paroxysmal Atrial Fibrillation Hypertension Mitral Valve Insufficiency Tachycardia / Bradycardia Syndrome Diet Heart Healthy Activity Other (To prevent bleeding, do not lift, push or pull more than 10 lbs for 1 week. To prevent infection, do not sit in a bath tub, hot tub or pool for one week.) Call your provider Fever or Chills, Bleeding, Excessive diarrhea, Weakness (unilateral) Patient Instructions Mid-level Provider (F9): Aquiles Leal PA-C Follow-up with Mid-level in: 5 weeks Aquiles Leal PA-C May 13, 2016 09:15
[2016-05-13] MEDS ORDERED: AMIO200T PO (09:20)
[2016-05-13] MEDS ORDERED: PANT40TA3 PO (09:20)
--- NOTE | 2016-05-13 10:00 | DIS ---
[address] [address] DISCHARGE SUMMARY PATIENT: PAULA JEAN : 1935 MR#: [id number] ADMIT: 05/12/2016 JOB ID: [id number] DIS: REASON FOR ADMISSION: Atrial fibrillation ablation procedure. CHIEF COMPLAINT: Rapid palpitations and shortness of breath. BRIEF HISTORY: The patient is a pleasant 81-year-old woman with preserved LV function with severe mitral regurgitation and paroxysmal atrial fibrillation. She also has tachycardia/bradycardia syndrome and has had a dual-chamber pacemaker implanted since 2013. She has been having increasing occurrence and overall burden of atrial fibrillation, and has had at least three hospitalizations in the recent past for this problem, along with pulmonary congestion. She was referred to Dr. Kenn Srinivasan for an ablation procedure. COURSE IN HOSPITAL: The patient was admitted through the [facility] and taken to the catheterization laboratory, where she was placed under general anesthesia by the anesthesiologist. She then had a KYLEIGH, which ruled out any left atrial thrombus. The ablation procedure was then undertaken and completed without incident. After removal of the femoral sheaths, hemostasis was obtained and she was awakened from anesthesia. She was then transferred back to the [facility] for recovery and then up to the [facility] for overnight observation. She did well overnight, her vital signs remained stable, although she was slightly hypotensive. In the morning she was ambulatory without difficulty, was not lightheaded and denied chest pain or femoral access site pain. Her EKG showed a paced atrial rhythm. DISPOSITION: The patient was discharged home in good condition with a followup appointment at the [facility] Cardiology office in one month. She was asked not to lift, push, or pull more than 10 pounds for one week to prevent bleeding, and not sit in the hot tub, bathtub, or pool for one week to prevent infection. She will follow her heart healthy diet and take medications as prescribed. DISCHARGE MEDICATIONS: 1. Amiodarone 200 mg b.i.d. 2. Pantoprazole 40 mg daily for 1 month. 3. Acetaminophen/codeine 300/30 mg 1 tablet p.o. q.4 h. p.r.n. pain. 4. Allopurinol 100 mg daily. 5. Atenolol 100 mg b.i.d. 6. Biotin 2500 mcg daily. 7. Bumetanide 1 mg daily. 8. Calcium carbonate 600 mg b.i.d. 9. Vitamin D3, 2000 units daily. 10. Rosuvastatin 10 mg q.h.s. 11. Spironolactone 12.5 mg daily. 12. Warfarin 1 mg tablet, 0.5 mg daily, along with warfarin 3 mg daily or as directed by her Anticoagulation Clinic. FINAL DIAGNOSES: 1. Paroxysmal atrial fibrillation. 2. Tachycardia/bradycardia syndrome. 3. Dual-chamber pacemaker since 2013. 4. Hypertension. 5. Mitral insufficiency.
--- NOTE | 2016-05-13 10:46 | DRSVH ---
[facility] [address] [place] [address] Echocardiogram Report Name: PAULA JEAN Date: Height: 63 in Hospital Exam Location: [facility] Weight: 150 lb Gender: Female BSA: 1.7 m2 : 1935 Age: 81 yrs BP: 99/69 mmHg Reason For Study: PERSISTENT AFIB Ordering Physician: KWASI ANAYA Performed By: Andrew Garcia Referring Physician: Dr. Sha Melara Interpretation Summary 1. Grossly normal left ventricular size with normal systolic function. 2. No thrombus appreciated in the sampled segments of the left atrial appendage or atrium. 3. At least moderate mitral regurgitation Procedure: Informed consent for Transesophageal Echocardiogram, and use of a contrast agent as needed, was obtained prior to the procedure. The patient was brought to the cardiac catheterization lab in a fasting state. An intravenous line was placed. A topical anesthetic agent was used for oropharangeal anesthesia. A bite block was inserted. Sedation was managed by anesthesiologist; see anesthesiology notes for details. A multifrequency, multiplane transesopheageal echocardiographic endoscope was inserted and manipulated in the standard fashion to achieve multiplane views. The transesophageal probe was passed without difficulty. A 2D transesophageal echocardiogram with spectral and color flow Doppler was performed. The usual views were obtained; basal, mid-esophageal, transgastric and aortic views. The patient's vital signs, including blood pressure, heart rate, pulse oximetry and cardiac rhythm were monitored throughout the procedure and remained stable. The patient tolerated the procedure well without evidence of orophangeal or esophageal trauma. The patient was in atrial fibrillation with controlled ventricular rate during the exam. There were no complications. Left Ventricle: The left ventricle is grossly normal size. Left ventricular systolic function is normal. Atria: No thrombus appreciated in the sampled segments of the left atrial appendage or atrium. No color doppler evidence for an interatrial shunt. Mitral Valve: At least moderate mitral regurgitation. Aortic Valve: The aortic valve is trileaflet. The aortic valve opens well. No aortic regurgitation is present. Tricuspid Valve: The tricuspid valve is normal. There is moderate tricuspid regurgitation. Pulmonic Valve: The pulmonic valve is normal in structure and function. There is no pulmonic valvular regurgitation. Reading Physician:10:46 AM
--- NOTE | 2016-05-13 10:54 | NUR ---
Discharge Discharge orders received. All discharge instructions given to patient and spouse-- both verbalized understanding of all instructions. R and L groin sites assessed prior to discharge. Both w/o bleeding or hematoma and OpSite dressings changed to bandaids. Instructions for care given. Both IVs dcd. Patient dcd to home with spouse via w/c at 1050.
== END 2016-05-13 10:56 | disposition home or self-care (01) ==
LOC: SOUO 01:24 → PCC 17:18 → SOUO 05-13 10:56
PROVIDERS: ATTEND Internal Medicine Cardiovascular Disease
DX: I48.0 Paroxysmal atrial fibrillation (principal); I49.5 Sick sinus syndrome; I34.0 Nonrheumatic mitral (valve) insufficiency; Z95.0 Presence of cardiac pacemaker; E78.5 Hyperlipidemia, unspecified; I12.9 Hypertensive chronic kidney disease with stage 1 through stage 4 chronic kidney disease, or unspecified chronic kidney disease; N18.3 Chronic kidney disease, stage 3 (moderate); Z86.73 Personal history of transient ischemic attack (TIA), and cerebral infarction without residual deficits; Z79.01 Long term (current) use of anticoagulants
CPT/HCPCS: 36415; 80048; 85025; 85610; 93005; 93613; 93656; 93662; C1730; C1732; C1759; C1769; C1894; C8925; J1100; J1644; J1940; J2405; J2710; J2720; J3010; J7030; J7040

== ENCOUNTER 2016-05-14 10:36 | Inpatient (IN) | payer MEDICARE, OTHER ==
[~2016-05-14] VITALS: Ht 160 cm; Wt 71.0 kg
[2016-05-14] VITALS (11 sets, daily range): BP systolic 90–103; BP diastolic 55–71; PULSE 70–85; RESP 14–25; O2SAT 93–100
[~2016-05-14 10:36] MED LIST changes: +AMIO200T PO; -CALC-140 PO; -CALC500T9 PO; +CALC600T12 PO; -CHOL100045 PO; +CHOL200047 PO; +PANT40TA3 PO; +WARF1TAB6 PO; +WARF3TAB7 PO; -WARF4TAB6 PO
--- NOTE | 2016-05-14 10:43 | ED.REPORT ---
HPI-Chest Pain 40 and Over Date of Service May 14, 2016 ED Provider: Jeffrey Israel DO The patient is a pleasant 81-year-old woman with preserved LV function with severe mitral regurgitation and paroxysmal atrial fibrillation. She also has tachycardia/bradycardia syndrome and has had a dual-chamber pacemaker implanted since 2013. She presents to the ED today accompanied by her due to SOB onset yesterday. Pt had an ablation done two days ago (05/12/16) with Dr. Gibbs and was released from the hospital yesterday. She c/o associated chest pressure that began this morning and SOB with any sort of mild exertion. Pt thinks that she has gained 10 lbs in the past 24 hrs. She took Lasix this morning. Nursing Notes Stated Complaint: CHEST PAIN Nursing Notes Reviewed: Yes Allergies: Coded Allergies: flecainide (Verified Allergy, Severe, Nausea,Vomiting, 05/12/16) Gold Salts (Verified Allergy, Intermediate, Rash, 05/12/16) Procaine HCl (Verified Allergy, Intermediate, Nausea, 02/05/16) clopidogrel bisulfate (Verified Allergy, Intermediate, Rash,Itching,, 02/04) Scheduled Allopurinol (Allopurinol) 100 Mg Tablet 100 MG PO DAILY Amiodarone (Amiodarone) 200 Mg Tablet 200 MG PO Q12 Atenolol (Atenolol) 100 Mg Tablet 100 MG PO DAILY Biotin (Biotin) 1,000 Mcg Tab.chew 2,500 MCG PO DAILY Bumetanide (Bumetanide) 1 Mg Tablet 1 MG PO DAILY Calcium Carbonate (Calcium) 600 Mg Tablet 600 MG PO BID Cholecalciferol (Vitamin D3) (Vitamin D3) 2,000 Unit Capsule 2,000 UNIT PO DAILY Pantoprazole DR (Pantoprazole DR) 40 Mg Tablet.dr 40 MG PO 0630 Rosuvastatin Calcium (Crestor) 10 Mg Tablet 10 MG PO HS Spironolactone (Spironolactone) 25 Mg Tablet 12.5 MG PO DAILY Warfarin Sodium (Warfarin Sodium) 1 Mg Tablet 0.5 MG PO DAILY Warfarin Sodium (Warfarin Sodium) 3 Mg Tablet 3 MG PO DAILY patient takes total 3.5 mg p.o daily Scheduled PRN Acetaminophen/Codeine 300-30mg (Tylenol/Codeine #3) 1 Each Tablet 1 TABLET PO Q4H PRN PRN Pain General Time Seen by MD: 10:42 Chief Complaint Shortness of breath Hx Obtained From: Patient Arrived By: Walk-in Sudden in Onset?: Yes Onset Occurred: Just prior to arrival Symptom Duration: Since onset Location: : Chest left Quality: Pressure Radiation: : Does not radiate Severity: Current: Mild Recent Healthcare: Recent doctor visit, Recent hospitalization, Previous surgery Similar Sx Previous: Yes Past Medical History Past Medical History Notes: Seen in ED 01/14/16 for CHF Negative Nuclear Stress Test 07/15/15 Echo 06/2015 EF 60-65% Cardiology: Dr. 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 Rheumatoid arthritis. Past Surgical History Pacemaker placement Frozen shoulder surgery. Kidney stone removal Lung biopsy, which showed rheumatoid arthritis-related changes. Reports: Appendectomy, Hysterectomy Smoking History Former Smoker Social History Alcohol Use: Denies alcohol use Other Social History: Ambulatory Status Independent Review of Systems Respiratory: Reports: Shortness of breath Cardiovascular: Reports: Chest pain Complete sys rev & neg: except as marked. Endocrine: Reports: Weight gain Physical Exam Physical Exam Notes: Initial Vital Signs Vital Signs (First) Date Time Temp Pulse Resp B/P Pulse Ox O2 Delivery O2 Flow Rate FiO2 05/14/16 10:47 36.3 70 14 103/65 100 Room Air 05/14/16 12:02 2 Initial VS: Reviewed Head / Eyes: Atraumatic, Normocephalic, PERRL ENT: Mucous membranes moist, Conjunctiva normal, No scleral icterus Extremities: Vascular intact, Neuro intact, No swelling, No tenderness Skin: Warm, Dry, No cyanosis Neurologic: Alert, Oriented, Nonfocal Psychiatric: Mood/affect normal, Behavior normal, Normal thought content General/Constitutional: Awake, Alert, No acute distress, Well appearing Respiratory / Chest: Atraumatic, Breath sounds NL, Breath sounds = bilat, No respiratory distress Heart Sounds / Murmur: Positive: Systolic murmur present.. (III/) Abdomen: Atraumatic, Soft, Non-tender, McBurney's non-tender, No guarding, No rebound, BS normoactive Neck: Atraumatic, Supple, Non-tender, No midline vertebral tend Neck Vascular: Positive: JVD mild Interpretation & Diagnostics Lab Results Interpretation Result Diagram: 05/16/1661405/16/16614 Test 05/14/16 11:25 05/14/16 14:45 05/14/16 15:49 Magnesium Level 1.9mg/dL (1.6-2.6) Hold [place] Top Tube Received (Received) Urine Color Straw (YELLOW) Urine Appearance Hazy (CLEAR,HAZY) Urine pH 5.5 (5.0-8.0) Urine Specific [place] 1.010 (1.003-1.035) Urine Protein Negativemg/dL (NEG,TRACE) Urine Glucose (UA) Negativemg/dL (NEGATIVE) Urine Ketones Negativemg/dL (NEGATIVE) Urine Occult Blood Negative (NEGATIVE) Urine Nitrite Negative (NEGATIVE) Urine Bilirubin Negative (NEGATIVE) Urine Urobilinogen Normalmg/dL (NORMAL) Urine Leukocyte Esterase Negative (NEGATIVE) Urine RBC 0-2/hpf (0-2) Urine WBC 0-5/hpf (0-5) Urine Epithelial Cells Occasional/hpf (NONE-MOD) Urine Crystals None seen (NONE SEEN) Urine Bacteria None/hpf (NONE-FEW) Urine Hyaline Casts Occasional/lpf (NONE) Urine Granular Casts None seen (NONE SEEN) Urine Waxy Casts None seen (NONE SEEN) Urine Red Blood Cell Casts None seen (NONE SEEN) Urine White Blood Cell Casts None seen (NONE SEEN) Urine Mucus None seen (None Seen) Urine Trichomonas None seen (NONE SEEN) Urine Yeast None (NONE SEEN) Urinalysis Comment None Urine Culture Reflexed Not indicated Lactic Acid Level 1.1mmol/L (0.4-2.0) Troponin T 0.162ug/L (0.0-0.011) Pro-B-Type Natriuretic Peptide 3084pg/mL (0-738) Procalcitonin 0.07ng/mL (0.00-0.08) ECG Interpretation ECG Interpretation: atrial paced complex (rate 70) stable when compared to EKG from 05/13/16 Time: 10:50 Interpreted by: ED physician X-Ray Chest Interpretation Chest Xray Interpretation: IMPRESSION: Overall no interval change since 02/07/16. Redemonstration of bibasilar scarring/atelectasis. Dictated by: Gerry Hogan M.D. on 05/14/2016 at 11:47 Approved by: Gerry Hogan M.D. on 05/14/2016 at 11:48 View: Portable Interpretation / Wet Read by: Interpret - Radiologist Re-Eval/Medical Decision Med Decision/Clinical Course 81-year-old female with a history of paroxysmal atrial fibrillation, chronic systolic heart failure, and mitral insufficiency returns to the hospital the day after being discharged. Previous admission was for EP ablation for refractory paroxysmal atrial fibrillation. She notes she has not urinated significantly in the past 24 hours and that her diuretics do not seem to be working. She feels significantly more short of breath than yesterday. Notes that she has gained approximately 10 pounds and feels puffy in her face. Questionable JVD is noted on exam and there is no lower extremity edema or rales in the lungs, however given the weight gain and the puffiness in her face as well as the patient's report of significantly decreased urination she will be diuresed with IV Lasix after consultation with Dr. Garsia. Her creatinine is at baseline. Troponin is elevated today which is likely related to her ablation. Dr. Garsia recommends admission and will see the patient tomorrow in consultation. Time of Eval: 13:14 Patient Status: Condition improved Re-Evaluation/Progress Note: Pt rechecked. Her breathing has improved with oxygen. Informed family of elevated troponin levels and plan for admission. Plan to consult with her agency legal counsel, Dr. Neymar Garsia. Consultation : Referral / Consult Name: Neymar Garsia MD Consulted With: Cardiology Call Returned at: 13:21 Rail Car Driver: Agrees with eval, Agrees with plan, Accepts admit Note: Case discussed. Dr. Wayne agrees with plan for admission, echocardiogram, IV, and lasix. Counseled Regarding: Diagnosis, Lab results, Need for admission Discharge & Departure Primary Impression: Shortness of breath Additional Impressions: Mitral insufficiency Cardiac valve disease etiology: etiology unspecified Qualified Code: I34.0 - Nonrheumatic mitral (valve) insufficiency Elevated troponin CHF (congestive heart failure) Congestive heart failure type: unspecified congestive heart failure type Congestive heart failure chronicity: unspecified congestive heart failure chronicity Qualified Code: I50.9 - Heart failure, unspecified Disposition: ADMITTED TO HOSPITAL Discharge Condition All VS Reviewed: Yes Condition: Stable Referrals: Sha Melara MD (PCP) Scribe Attestation Portion of this note were transcribed by Briana Pena. IDr. Israel, personally performed the history, physical exam, and medical decision-making: I reviewed and confirmed the accuracy for the information in the transcribed note. Signed by: sunil Carrera, 05/14/16 1330 copies to: Sha Melara MD, Gary R DO May 14, 2016 10:43 Briana Pena May 14, 2016 11:10
[2016-05-14 11:37] LABS: BASOPHILS % (AUTO) 0.7 % (0-3); EOSINOPHILS % (AUTO) 3.7 % (0-5); MONOCYTES % (AUTO) 10.5 % (4-12); Mean Corpuscular Hemoglobin 29.7 pg (27.0-35.0); Mean Corpuscular Volume 94.4 fL (81-100); NEUTROPHILS % (AUTO) 61.7 % (40-74); Platelet Count 194 bil/L (150-400)
--- NOTE | 2016-05-14 11:50 | DRSVH ---
PROCEDURE: X-RAY CHEST ONE VIEW, PORTABLE ([id number]) INDICATIONS: PAIN TECHNIQUE: One view of the chest was acquired. COMPARISON: [facility], CR, XR CHEST 1VW (PORTABLE), 02/07/2016, 4:55. FINDINGS: Surgical changes and devices: Dual-lead cardiac pacer Lungs and pleura: No pleural effusions or pneumothorax. Bibasilar scarring/atelectasis, grossly unch anged since 02/07/16. No definite new focal consolidation. Mediastinum: Mediastinal contours appear normal. Heart size is normal. Bones and chest wall: No suspicious bony lesions. Overlying soft tissues appear unremarkable. Bilat eral shoulder degeneration IMPRESSION: Overall no interval change since 02/07/16. Redemonstration of bibasilar scarring/atelectas is. Dictated by: Gerry Hogan M.D. on 05/14/2016 at 11:47 Approved by: Gerry Hogan M.D. on 05/14/2016 at 11:48
[2016-05-14 12:15] LABS: Magnesium 1.9 mg/dL (1.6-2.6)
[2016-05-14 12:19] LABS: TROPONIN T 0.17 ug/L (0.0-0.011)
[2016-05-14] MEDS ORDERED: Furosemide 10 mg/mL 10 mL Inj IVPUSH ONE (13:20)
[2016-05-14] MEDS ORDERED: Ondansetron 2 mg/mL 2 mL Inj IVPUSH PRN (14:25)
[2016-05-14] MEDS ORDERED: Alum-Mag Hydrox-Simeth 30 mL Suspension PO PRN (14:25)
[2016-05-14] MEDS ORDERED: Polyethylene Glycol (PEG) 17 Gm Powder PO PRN (14:40)
--- NOTE | 2016-05-14 14:56 | PCM.HPMED ---
Subjective Date of Service May 14, 2016 Primary Provider: Admitting Physician: Primary Care Physician: Sha Melara MD Attending Physician: Chief Complaint: worsened dyspnea /2 days weight gain/2 days History of Present Illness: 81-year-old lady with past medical history of systolic CHF, CKD3, HLD, PAF , Mitral regurgitation was discharged from hospital yesterday after EP ablation for symptomatic drug refractory PAF on 05/12/16. She had some dyspnea before she left the hospital and was given Lasix before discharge was progressively worsened over the past 24 hours. She also noted that she gained 10 pounds from her prehospitalization weight which prompted ED visit. She also feels that her legs and abdomen are swollen. 2 Daughters at bedside side also feel she had gained weight the last 2-3 days. She denies chest pain. Denies fever. She was given Lasix and her home bumex yesterday but did not micturate much since yesterday. ED course: BP 90/60 otherwise unremarkable vitals. Basal crackles, murmur of MR. chest x-ray read as unchanged but looks more congested to me . EKG A- paced at 70, troponin 0.17 ED physician discussed the case with her primary rn concurrent review , Lasix 80 mg IV given, limited echo ordered. Hospitalist service requested for admission for CHF exacerbation. Review of Systems: A comprehensive review of systems performed, pertinent positives and negatives included in history of present illness Allergies Coded Allergies: flecainide (Verified Allergy, Severe, Nausea,Vomiting, 05/12/16) Gold Salts (Verified Allergy, Intermediate, Rash, 05/12/16) Procaine HCl (Verified Allergy, Intermediate, Nausea, 02/05/16) clopidogrel bisulfate (Verified Allergy, Intermediate, Rash,Itching,, 02/04) Home Medications Amiodarone 200 mg by mouth twice a day, to be lowered to 200 mg by mouth daily after 2 weeks allopurinol 100 mg by mouth daily Atenolol 100 mg by mouth twice a day Biotin 2500 MCG daily bumex 1 mg by mouth daily Calcium carbonate 600 mg twice a day Vitamin D3 2000 units daily Pantoprazole 40 mg by mouth daily Crestor 10 mg by mouth at bedtime Spironolactone 12.5 mg by mouth daily Warfarin 3.5 mg by mouth daily PMH systolic CHF, CKD3, HLD, PAF Moderate to severe MR and TR gout History of CVA Surgical History Recent ablation of atrial fibrillation Hysterectomy Pacemaker insertion 3 years ago. Appendectomy Frozen shoulder surgery Lung biopsy Family History Reviewed and noncontributory. Social History Hx Alcohol Use: Yes (glass of wine nightly) Hx Substance Use: No Hx Tobacco Use: Yes (quit in 1971) Smoking Status: Former Smoker Living Arrangement: with Family Exam Vital Signs Vital Sign - Last Date Time Temp Pulse Resp B/P Pulse Ox O2 Delivery O2 Flow Rate FiO2 05/14/16 14:16 70 23 91/63 100 Nasal Cannula 2 05/14/16 13:33 36.9 Exam Gen. patient is lying comfortably in hospital bed HEENT: Head is normocephalic atraumatic, Pupils equal and reactive, extraocular movements intact, Lungs crackles at lower lung bilaterally Heart regular rate and rhythm. Systolic murmur at LLSB and apex Abdomen soft nontender without hepatosplenomegaly Extremities pulses are present dorsalis pedis posterior tibialis and radial. Pedal and pretibial edema Psych alert and oriented to person place and time Neuro cranial nerves II through XII are grossly intact Lymph: There is no lymphadenopathy appreciated in the cervical supra infraclavicular regions : no reynolds Lab and Diagnostics Result Diagram: 05/14/16 1125 05/14/16 1125 X-Rays, CTs and MRIs PROCEDURE: X-RAY CHEST ONE VIEW, PORTABLE ([id number]) IMPRESSION: Overall no interval change since 02/07/16. Redemonstration of bibasilar scarring/atelectasis. Dictated by: Gerry Hogan M.D. on 05/14/2016 at 11:47 12-lead ECG a-paced at 70 Cardiac Echo Impressions pending Additional Diagnostics: DATE OF SERVICE: 05/12/2016 PREOPERATIVE DIAGNOSIS(ES): 1. Symptomatic drug refractory paroxysmal atrial fibrillation. 2. Sick sinus syndrome with dual-chamber pacemaker in place. POSTOPERATIVE DIAGNOSIS(ES): 1. Symptomatic drug refractory paroxysmal atrial fibrillation. 2. Sick sinus syndrome with dual-chamber pacemaker in place. PROCEDURES PERFORMED: 1. Comprehensive electrophysiology study. 2. Three-dimensional electroanatomical mapping using the CARTO 3 system. 3. Atrial fibrillation ablation with pulmonary vein isolation. 4. Transseptal puncture x2. 5. Intracardiac echocardiography. 6. Barium esophagram. 7. Cardioversion. 8. Sonia-procedure pacemaker programming and reprogramming. 9. Fluoroscopy. SURGEON: Kenn Srinivasan MD, electrophysiology attending. Assessment & Plan 81-year-old lady with past medical history of systolic CHF, CKD3, HLD, PAF ,MR with recent ablation for medication refractory PAF came to the ED due to worsening dyspnea and weight gain. # Acute on chronic systolic CHF,poa -Worsening dyspnea and 10 pound weight gain likely due to CHF exacerbation.baseline EF 45-55%. Echocardiogram ordered to rule out pericardial effusion -CHF exacerbation precipitated by unclear etiology. Daughter notes that the patient received IV fluid on recent hospitalization and was given Lasix but did not pee much . Only recent medication change is addition of amiodarone and no bradycardia. Denies change in diet/sodium intake. compliant with meds . -Lasix 80 mg IV given in ED, will continue 40 mg IV daily. will consider Lasix drip if no response to iv push -Daily weight, intake and output monitoring -O2 via NC -Limited echo pending,BNP 3084 -Continue home atenolol, spironolactone, -telemetry -cardiology Dr Garsia notified by ED # Elevated troponin,acute,poa -Likely due to recent ablation and transseptal puncture x2 on 05/12/16 -ACS unlikely, no chest pain. will trend troponin # recent EP ablation for drug refractory symptomatic PAF -a- paced now,HR 70 -Continue home atenolol and amiodarone - Continue anticoagulation with warfarin # Moderate to severe MR and TR ,chronic, stable -limited echo pending # CKD3 -Suspect some GILLIAN on CKD based on low urine output since yesterday even if creatinine is unchanged from baseline . Will follow response to Lasix discussed code status,she is full code .she names her Anand as POA,tel Patient admitted under inpatient status with expected length of stay > 2 midnights for severity of present symptoms, complexities of treatment plan and risk for adverse events Time spent 55 minutes copies to: Kenn Srinivasan MD; Neymar Garsia MD; Sha Melara MD, Melaku MD May 14, 2016 14:56
[2016-05-14 15:39] LABS: APPEARANCE,URINE HAZY (CLEAR,HAZY); COLOR,URINE STRAW (YELLOW); OCCULT BLOOD,URINE NEGATIVE (NEGATIVE); PH,URINE 5.5 (5.0-8.0); UROBILINOGEN,URINE NORMAL (NORMAL)
[2016-05-14] MEDS ORDERED: Albuterol-Ipratropium 3 mL Inhalation Solution NEB ONE (15:45)
[2016-05-14 16:18] LABS: TROPONIN T 0.162 ug/L (0.0-0.011)
--- NOTE | 2016-05-14 16:37 | DRSVH ---
[facility] [address] [place] [address] Echocardiogram Report Name: PAULA JEAN Date: Height: 63 in Hospital Exam Location: [facility] Weight: 154 lb Gender: Female BSA: 1.7 m2 : 1935 Age: 81 yrs BP: 90/60 mmHg Reason For Study: SOB, RECENT ABLATION, MITRAL REGURGITATION History: ablation Ordering Physician: Jeffrey Israel Performed By: Yoli Jung Referring Physician: Neymar Garsia Interpretation Summary The left ventricular ejection fraction is normal. There is a pacemaker lead in the right ventricle. There is moderate mitral regurgitation. Flow reversal noted in pulmonary veins consistent with significant mitral regurgitation. There is moderate tricuspid regurgitation. The right ventricular systolic pressure is estimated at 45 mmHg assuming a right atrial pressure of 8 mm Hg. There is no pericardial effusion. Procedure: A two-dimensional transthoracic echocardiogram with color flow and Doppler was performed. The study quality was technically adequate. Comparison is made with the echocardiogram of 03/09/2016. Left Ventricle: The left ventricle is normal in size. Left ventricular wall thickness is normal. The left ventricular ejection fraction is normal. There are no obvious focal wall motion abnormalities noted but poor endocardial definition reduces the sensitivity for the detection of such. Decreasing the preload to the left ventricle with a valsalva maneuver did not change the restrictive filling pattern, consistent with severely elevated left atrial pressures. Right Ventricle: There is a pacemaker lead in the right ventricle. The right ventricle is normal in size and function. Atria: Both atria are mildly dilated. There is no Doppler evidence for an interatrial shunt. Mitral Valve: There is moderate mitral annular calcification. The mitral valve leaflets appear mildly thickened, but open well. There is no evidence of mitral valve prolapse. Flow reversal noted in pulmonary veins consistent with significant mitral regurgitation. There is moderate mitral regurgitation. The mitral regurgitant jet is posteriorly directed, which is consistent with anterior leaflet pathology. Aortic Valve: The aortic valve is normal in structure and function. There is trace aortic regurgitation. Tricuspid Valve: The tricuspid valve is normal in structure but is abnormal in function. There is moderate tricuspid regurgitation. The TR jet is eccentric. The right ventricular systolic pressure is estimated at 45 mmHg assuming a right atrial pressure of 8 mm Hg. Pulmonic Valve: The pulmonic valve is not well visualized. There is a trace or physiologic amount of pulmonic regurgitation. Great Vessels: The aortic root is normal size. The ascending aorta is normal in size. The IVC is of normal diameter and collapses less than 50% with a sniff. This suggests a right atrial pressure of 8 mm Hg. Pericardium/ Pleura There is no pericardial effusion. MMode/2D Measurements & Calculations LVIDd: 4.3 cm RA long axis LVOT diam LVIDs: 3.0 cm LA A2 area: 19.3 cm FS: 31.1 % LA A4 area: 20.5 cm RA area asc Aorta IVSd: 0.95 cm LA length (vol): 5.6 cm Diam: 3.2 cm LVPWd: 0.86 cm LA vol: 60.1 ml : 18.9 cm LA vol index RA vol: 57.1 ml RA : 33.0 mm2 IVC diam: 2.0 cm LV crawford. diameter/BSA LV sys. diameter/BSA RVD1 (basal) (cm/m^2): 2.5 (cm/m^2): 1.7 Doppler Measurements & Calculations Ao V2 max MV E max christos MV E/A: 3.0 TR max christos : 104.1 cm/sec : 155.6 cm/sec Med Peak E' Christos : 302.7 cm/sec Ao max PG MV A max christos TR max PG : 4.3 mmHg : 51.2 cm/sec E/E' med: 42.3 : 37.2 mmHg Ao mean PG MV P1/2t: 62.8 msecLat Peak E' Christos PA V2 max : 70.0 cm/sec LVOT Max Christos MVA(VTI): 0.84 cm E/E' lat: 32.8 PA mean PG : 69.0 cm/sec MR ERO: 0.37 cm2 E/e' average: 37.6 MV A dur: 0.16 sec PA Accel Time JOSE(I,D): 1.6 cm : 0.08 sec sev ratio MV V2 mean MV P1/2t max christos Ao V2 mean LV V1 max PG : 73.9 cm/sec : 66.6 cm/sec MV mean PG MVA(P1/2t): 3.5 cm2Ao V2 VTI: 19.2 cm LV V1 VTI JOSE(V,D): 1.4 cm2 : 14.2 cm MV V2 VTI: 35.6 cm MV dec time : 0.22 sec MR flow rate PA V2 mean JOSE indexed to BSA : 168.9 cm3/sec : 49.6 cm/sec (cm^2/m^2): 0.91 MR PISA radius Electronically signed by: Mark Salazar on Reading Physician:05/14/2016 04:36 PM
--- NOTE | 2016-05-14 17:40 | NUR ---
admitted to room 1017 from ER alert, oriented, 89 yr old female, not having resp distress at rest but gets a little SOB with walking, states she is feeling better however, VSS, 96% on RA, eating dinner
[2016-05-14 17:50] LABS: INR 4.18 ratio
[2016-05-14] MEDS: Calcium Carbonate (Oyster Shell) 500 mg Tablet PO SCH (20:08)
[2016-05-14] MEDS: Sodium Chloride LOK Flush 10 mL Syringe IVFLUSH SCH ×2 (21:19→21:20)
[2016-05-15] VITALS (10 sets, daily range): BP systolic 89–113; BP diastolic 56–79; PULSE 69–79; RESP 18–20; O2SAT 90–97
[2016-05-15] MEDS: Pantoprazole 40 mg ER24 Tablet PO SCH (06:22)
--- NOTE | 2016-05-15 06:25 | NUR ---
Respiratory Slightly SOB with ambulation / up to bathroom with assist. RA sats mid 90's when awake - desats to 89% at sleep. 2 Lt's nasal cannula applied at night. B/P /57 at HS. Held Amiodarone dose per Dr. Alvarez's order. Tele: sinus A-paced, no chest pain.
[2016-05-15 07:12] LABS: BASOPHILS % (AUTO) 0.5 % (0-3); EOSINOPHILS % (AUTO) 5.1 % (0-5); MONOCYTES % (AUTO) 10.4 % (4-12); Mean Corpuscular Hemoglobin 29.8 pg (27.0-35.0); NEUTROPHILS % (AUTO) 54.3 % (40-74); Platelet Count 154 bil/L (150-400)
[2016-05-15 07:21] LABS: INR 3.47 ratio
--- NOTE | 2016-05-15 08:03 | PCM.PHAPRO ---
Progress worsened dyspnea /2 days weight gain/2 days Date May 15-May INR 4.18 3.47 INR change -0.71 Warf Dose HOLD HOLD Dariel Barajas May 15, 2016 08:03
[2016-05-15] MEDS ORDERED: Furosemide 10 mg/mL 4 mL Inj IVPUSH SCH (08:30)
--- NOTE | 2016-05-15 10:20 | PCM.PNMED ---
Subjective Date of Service May 15, 2016 Subjective Patient is seen and examined. Says she was severely SOB at home. Cardiology suggested adding more diuresis but she is hypotensive, thus atenolol was decreased to 50 mg this am. Patient is dysgenic with exertion but comfortable at rest. No leg edema. She is endorsing Poor appetite. Has been explained that she would like to get her mitral valve repair at Located within [facility]. Exam Vital Signs Vital Sign - Last Date Time Temp Pulse Resp B/P Pulse Ox O2 Delivery O2 Flow Rate FiO2 05/15/16 09:16 70 05/15/16 08:03 36.4 20 97/63 90 Room Air 05/14/16 16:00 2 Intake and Output 05/14/16 05/14/16 05/15/16 Cumulative From/Thru 15:00 23:00 07:00 05/14/16 10:47 - 05/15/16 04:42 Intake Total 320 ml 150 ml 470 ml Output Total 1150 ml 1100 ml 2250 ml Balance -830 ml -950 ml -1780 ml Intake Oral 320 ml 150 ml 470 ml Output Urine Total 1150 ml 1100 ml 2250 ml # Voids 2 2 # Bowel Movements 0 0 Exam Gen.: Pleasant mildly dyspneic with conversation HEENT: Normocephalic, atraumatic Heart: Grade 2+ mitral regurgitation with radiation to axilla, regular rate and rhythm Vascular: Positive hepatojugular reflux, elevated CVP on right side Lungs: fine faint lower lobe crackles Extremities: no leg edema Lab and Diagnostics Result Diagram: 05/15/16 0612 05/15/16 0612 X-Rays, CTs and MRIs PROCEDURE: X-RAY CHEST ONE VIEW, PORTABLE ([id number]) IMPRESSION: Overall no interval change since 02/07/16. Redemonstration of bibasilar scarring/atelectasis. Dictated by: Gerry Hogan M.D. on 05/14/2016 at 11:47 12-lead ECG a-paced at 70 Cardiac Echo Impressions pending Additional Diagnostics DATE OF SERVICE: 05/12/2016 PREOPERATIVE DIAGNOSIS(ES): 1. Symptomatic drug refractory paroxysmal atrial fibrillation. 2. Sick sinus syndrome with dual-chamber pacemaker in place. POSTOPERATIVE DIAGNOSIS(ES): 1. Symptomatic drug refractory paroxysmal atrial fibrillation. 2. Sick sinus syndrome with dual-chamber pacemaker in place. PROCEDURES PERFORMED: 1. Comprehensive electrophysiology study. 2. Three-dimensional electroanatomical mapping using the CARTO 3 system. 3. Atrial fibrillation ablation with pulmonary vein isolation. 4. Transseptal puncture x2. 5. Intracardiac echocardiography. 6. Barium esophagram. 7. Cardioversion. 8. Sonia-procedure pacemaker programming and reprogramming. 9. Fluoroscopy. SURGEON: Kenn Srinivasan MD, electrophysiology attending. Assessment & Plan 81-year-old lady with past medical history of systolic CHF, CKD3, HLD, PAF ,MR with recent ablation for medication refractory PAF came to the ED due to worsening dyspnea and weight gain. # Acute on chronic systolic CHF,poa -Worsening dyspnea and 10 pound weight gain likely due to CHF exacerbation.baseline EF 45-55%. Echocardiogram ordered to rule out pericardial effusion -CHF exacerbation precipitated by unclear etiology. Daughter notes that the patient received IV fluid on recent hospitalization and was given Lasix but did not pee much . Only recent medication change is addition of amiodarone and no bradycardia. Denies change in diet/sodium intake. compliant with meds . -Lasix 80 mg IV given in ED, will continue 40 mg IV daily. will consider Lasix drip if no response to iv push -Daily weight, intake and output monitoring -O2 via NC -Limited echo pending,BNP 3084 -Continue home atenolol, spironolactone, -telemetry -cardiology Dr Garsia notified by ED : We will be cutting her atenolol to 50 mg daily, stopping Lasix for now. Bumex 1 mg twice a day plus spironolactone is left in her orders # Elevated troponin,acute,poa -Likely due to recent ablation and transseptal puncture x2 on 05/12/16 -ACS unlikely, no chest pain. 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 Will follow response to Lasix discussed code status,she is full code .she names her Anand as POA,tel Patient admitted under inpatient status with expected length of stay > 2 midnights for severity of present symptoms, complexities of treatment plan and risk for adverse events VTE Prophylaxis: Other (Coumadin: dose was held due to spratherapeutic INR 3.71 ) VTE Mechanical Devices: Intermittant Pneumatic CD Aurelia Landis DO May 15, 2016 10:20
[2016-05-15] MEDS: Sodium Chloride LOK Flush 10 mL Syringe IVFLUSH SCH ×3 (10:36→21:01)
[2016-05-15] MEDS: Calcium Carbonate (Oyster Shell) 500 mg Tablet PO SCH ×2 (10:37→21:00)
--- NOTE | 2016-05-15 12:07 | NUR ---
Social Work: Initial Assessment Data & Assessment: See Initial Assessment. EMR Reviewed. Patient is a 81 y/o female that admitted due to shortness of breath. [employer] met with patient and Patient's spouse to complete initial assessment, SW role reviewed and Initial Assessment complete. Patient's primary insurance is Medicare and [employer] secondary. Patient's PCP is Dr. Sha Melara. Patient does not have VA or LTC benefits. Patient has no history of SNF or HH. Patient states that she does have an Advance Directive and will have her family to bring it in. Patient reports that her DPOA is her daughter Yamilet Braga. Patient lives in a single level home with her spouse Patient's home has two steps to enter. Patient is independent at baseline, she drives and does not have any DME. Patient does not have any discharge needs at the current time, but SW will continue to follow incase a need arise. Plan: Patient will likely discharge home with no needs in POV. SW will continue to follow. Adams Calderon LMSW, CHRISTIE Addendum: 05/15/16 at 1221 by ADAMS TEMPLE Amended: Links added.
[2016-05-15] MEDS: Bumetanide 0.25 mg/mL 4 mL Inj IV SCH ×2 (13:26→21:00)
[2016-05-15] MEDS ORDERED: Albuterol 2.5 mg/3 mL Inhalation Solution NEB PRN (13:55)
--- NOTE | 2016-05-15 16:12 | NUR ---
BP/Late Meds/Breathing Tx Pt with BP 97/63. Per RN report, pt with lower BP readings overnight. Pt with orders of Lasix, Bumex, Spironolactone and Atenolol. Pt without c/o dizziness or light-headedness. Morning Medications delayed until Hospitalist aware and present to change orders prior to administration. Pt tolerating what BP medications were administered - continues to state JEFFERSON. Pt and family requesting breathing treatments, stating that they were effective when pt in ED. Cook page to re: order for Albuterol - order received. Pt made aware that it is available - denied need for breathing treatment at that time. Care continues.
--- NOTE | 2016-05-15 18:17 | CONS ---
[address] [address] CONSULTATION REPORT PATIENT: PAULA JEAN : 1935 MR#: [id number] ADMIT: 05/14/2016 JOB ID: [id number] DATE OF SERVICE: 05/15/2016 I have known the patient for sometime now and follow her as an outpatient for history of recurrent episodes of significant pulmonary congestion, felt to be related to paroxysmal atrial fibrillation in the setting of significant mitral regurgitation. She did not tolerate antiarrhythmic drug therapy well because of side effects and underwent atrial fibrillation ablation procedure on May [address] Srinivasan. The procedure was uncomplicated and she was discharged home May 13, but presented yesterday to the hospital with increased pulmonary congestion and evidence of a 10- pound weight gain related presumably to significant intravenous fluid administration during our procedure and subsequent followup in the hospital. I saw her earlier this morning and she appeared moderately tachypneic at rest. She had received intravenous diuretics and was diuresing briskly, and when I came back around this evening, she was resting comfortably and no longer appeared dyspneic and looks quite comfortable. She has diuresed fairly briskly over the day today and again is feeling much improved. As I was talking to her and her family, mention was made of the fact that when she was in the emergency department, she noted significant benefit from nebulized bronchodilator. 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 She has not had formal pulmonary function studies performed before and has not seen a medicare insurance specialist previously. I also had an opportunity to review my transesophageal echocardiogram, as well as the KYLEIGH procedure that was done during her atrial fibrillation ablation procedure and continued to be impressed with the fact that the mitral regurgitation varies significantly between studies and her most recent examinations suggests more moderate mitral regurgitation as opposed to severe mitral regurgitation. We had previously talked about the possibility of a MitraClip procedure, but at this point, given her most recent echocardiograms and fairly impressive response to bronchodilators, I am going to make sure that she is on appropriate medications and that her pulmonary function is well evaluated before we make any further plans to send her to the [facility] for possible mitral valve procedure. My recommendations at this point are that the patient be discharged home on a lower dose of atenolol, and I would reduce it to 100 mg once a day. She has an appointment to see my physician trading assistant, Aquiles Leal, in one month. I am going to send a message for my office to go ahead and order pulmonary function studies before the visit with Aquiles Leal in a month, and at that point, I would like the atenolol reduced to 50 mg a day, if she has not had recurrent atrial fibrillation. I will plan to see year as scheduled on July 21, and at that time, depending upon her clinical course, we can make a further decision as to whether or not to consider repair of her mitral valve for her mitral regurgitation.
[2016-05-16 00:21] VITALS: BP 124/76; PULSE 81; RESP 16; O2SAT 98
[2016-05-16 05:23] VITALS: BP 109/69; PULSE 71; RESP 16; O2SAT 92
--- NOTE | 2016-05-16 06:00 | NUR ---
Respiratory No acute changes overnight. Remained on RA with sats 93-97% Moderate SOB with activity. Resting well B/p stable.
[2016-05-16 06:37] LABS: BASOPHILS % (AUTO) 1.1 % (0-3); EOSINOPHILS % (AUTO) 6.6 % (0-5); MONOCYTES % (AUTO) 11.9 % (4-12); Mean Corpuscular Hemoglobin 29.9 pg (27.0-35.0); Mean Corpuscular Volume 94.1 fL (81-100); NEUTROPHILS % (AUTO) 52.7 % (40-74); Platelet Count 167 bil/L (150-400)
[2016-05-16] MEDS: Pantoprazole 40 mg ER24 Tablet PO SCH (08:40)
[2016-05-16] MEDS: Bumetanide 0.25 mg/mL 4 mL Inj IV SCH (08:40)
[2016-05-16] MEDS: Sodium Chloride LOK Flush 10 mL Syringe IVFLUSH SCH (08:40)
[2016-05-16] MEDS: Calcium Carbonate (Oyster Shell) 500 mg Tablet PO SCH (08:40)
[2016-05-16 08:41] VITALS: BP 111/71; PULSE 76
[2016-05-16 08:59] VITALS: PULSE 70
[2016-05-16 09:19] LABS: INR 2.11 ratio
--- NOTE | 2016-05-16 09:28 | PCM.PHAPRO ---
Progress worsened dyspnea /2 days weight gain/2 days Date -May 15-May 16-May INR 4.18 3.47 2.11 INR change -0.71 -1.36 Warf Dose HOLD HOLD 2.5 Dariel Barajas May 16, 2016 09:28
--- NOTE | 2016-05-16 11:49 | NUR ---
SOL signed JEAN MARIE Estrada
[2016-05-16] MEDS ORDERED: ATEN100T PO (12:58)
--- NOTE | 2016-05-16 13:04 | PCM.DIMED ---
Discharge Instructions Date of Service May 16, 2016 Dates of Hospitalization May 14, 2016 at 16:49 Discharge Diagnosis Discharge Diagnosis Acute on Chronic CHF exacerbation, diastolic Diet Low fat, Low Sodium, Heart Healthy Activity No restrictions Call your provider Fever or Chills, Shortness of breath, Bleeding, Chest pain, Vomitting, Excessive diarrhea, Weakness (unilateral), Other Patient Instructions Follow-up plan Please follow up with your PCP and cardiology in 2 weeks Aurelia Landis DO May 16, 2016 13:04
--- NOTE | 2016-05-16 13:27 | NUR ---
Social Work Note: Discharge Data& Assessment: Per pt is medically improved and ready for discharge. Qian Harden is a 81 year old female admitted on 05/14/2016 for shortness of breath. Per pt is medically improved and ready for discharge. Pt has been a SBA in her room and is ambulating at her baseline. SW met with pt and pt at bedside to confirm discharge plan and assess for any unmet needs. Pt confirmed her is transporting her home today. Pt and pt deny any other needs. No other discharge needs identified. All updated and agreeable to plan. Plan: Per pt is ready to discharge home via POV. Pt and pt deny any other needs. No other discharge needs identified. All updated and agreeable to plan. JEAN MARIE Estrada
--- NOTE | 2016-05-16 14:11 | NUR ---
Discharge pt discharged to home with at 1410. A&Ox3, GILBERT, VSS, No Pain, Tele dc'd, IV dc'd intact - gauze and tegaderm in place (rechecked dressing prior to d/c d/t pt on Warfarin: CDI), No script given, All personal belongings in hand at dc, Care Notes and instructions provided on dc instructions - CHF booklet taken home with pt as well, dc dx and s/sx to seek medical attention for. No questions or concerns left unanswered at dc. Pt wheeled off unit to vehicle.
--- NOTE | 2016-05-17 15:55 | PCM.DC.MED ---
Discharge Summary Date of Service May 17, 2016 Dates of Hospitalization Date of Hospital Admission May 14, 2016 at 16:49 Date of Discharge: May 16, 2016 Providers: Admitting Physician: Sulaiman Mcmahon MD Primary Care Physician: Sha Melara MD Attending Physician: Sulaiman Mcmahon MD Diagnosis at Time of Discharge Diagnosis at Time of Discharge Acute on Chronic CHF exacerbation, diastolic, Afib, CAD, CVA, DM2, RA, CKD stage 3 Consultations Cardiology Procedures XRay, CTs & MRIs PROCEDURE: X-RAY CHEST ONE VIEW, PORTABLE ([id number]) IMPRESSION: Overall no interval change since 02/07/16. Redemonstration of bibasilar scarring/atelectasis. Dictated by: Gerry Hogan M.D. on 05/14/2016 at 11:[address] [facility] Diagnostic [place] [address] Patient Name: PAULA JEAN MR#: [id number] [place] [facility] [place] Ordering Phys: ELZBIETA BARTLETT MD Date of Service: 05/14/16 1041 PROCEDURE: X-RAY CHEST ONE VIEW, PORTABLE ([id number]) INDICATIONS: PAIN TECHNIQUE: One view of the chest was acquired. COMPARISON: [facility], CR, XR CHEST 1VW (PORTABLE), 02/07/2016, 4: 55. FINDINGS: Surgical changes and devices: Dual-lead cardiac pacer Lungs and pleura: No pleural effusions or pneumothorax. Bibasilar scarring/ atelectasis, grossly unchanged since 02/07/16. No definite new focal consolidation. Mediastinum: Mediastinal contours appear normal. Heart size is normal. Bones and chest wall: No suspicious bony lesions. Overlying soft tissues appear unremarkable. Bilateral shoulder degeneration IMPRESSION: Overall no interval change since 02/07/16. Redemonstration of bibasilar scarring/atelectasis. Dictated by: Gerry Hogan M.D. on 05/14/2016 at 11:47 Approved by: Gerry Hogan M.D. on 05/14/2016 at 11:48 ECG 12 Lead a-paced at 70 Cardiac Echo Impression pending Other Diagnostics DATE OF SERVICE: 05/12/2016 PREOPERATIVE DIAGNOSIS(ES): 1. Symptomatic drug refractory paroxysmal atrial fibrillation. 2. Sick sinus syndrome with dual-chamber pacemaker in place. POSTOPERATIVE DIAGNOSIS(ES): 1. Symptomatic drug refractory paroxysmal atrial fibrillation. 2. Sick sinus syndrome with dual-chamber pacemaker in place. PROCEDURES PERFORMED: 1. Comprehensive electrophysiology study. 2. Three-dimensional electroanatomical mapping using the CARTO 3 system. 3. Atrial fibrillation ablation with pulmonary vein isolation. 4. Transseptal puncture x2. 5. Intracardiac echocardiography. 6. Barium esophagram. 7. Cardioversion. 8. Sonia-procedure pacemaker programming and reprogramming. 9. Fluoroscopy. SURGEON: Kenn Srinivasan MD, electrophysiology attending. [facility] Diagnostic [place] [address] Patient Name: PAULA JEAN MR#: [id number] [place] [facility] [place] Ordering Phys: Jeffrey Israel DO Date of Service: 05/14/[address] [address] Echocardiogram Report Name: PAULA JEANmamecarole Date: Height: 63 in Hospital Exam Location: [facility] Weight: 154 lb Gender: Female BSA: 1.7 m2 : 1935 Age: 81 yrs BP: 90/60 mmHg Reason For Study: SOB, RECENT ABLATION, MITRAL REGURGITATION History: ablation Ordering Physician: Jeffrey Israel Performed By: Yoli Jung Referring Physician: Neymar Garsia Interpretation Summary The left ventricular ejection fraction is normal. There is a pacemaker lead in the right ventricle. There is moderate mitral regurgitation. Flow reversal noted in pulmonary veins consistent with significant mitral regurgitation. There is moderate tricuspid regurgitation. The right ventricular systolic pressure is estimated at 45 mmHg assuming a right atrial pressure of 8 mm Hg. There is no pericardial effusion. Procedure: A two-dimensional transthoracic echocardiogram with color flow and Doppler was performed. The study quality was technically adequate. Comparison is made with the echocardiogram of 03/09/2016. Left Ventricle: The left ventricle is normal in size. Left ventricular wall thickness is normal. The left ventricular ejection fraction is normal. There are no obvious focal wall motion abnormalities noted but poor endocardial definition reduces the sensitivity for the detection of such. Decreasing the preload to the left ventricle with a valsalva maneuver did not change the restrictive filling pattern, consistent with severely elevated left atrial pressures. Right Ventricle: There is a pacemaker lead in the right ventricle. The right ventricle is normal in size and function. Atria: Both atria are mildly dilated. There is no Doppler evidence for an interatrial shunt. Mitral Valve: There is moderate mitral annular calcification. The mitral valve leaflets appear mildly thickened, but open well. There is no evidence of mitral valve prolapse. Flow reversal noted in pulmonary veins consistent with significant mitral regurgitation. There is moderate mitral regurgitation. The mitral regurgitant jet is posteriorly directed, which is consistent with anterior leaflet pathology. Aortic Valve: The aortic valve is normal in structure and function. There is trace aortic regurgitation. Tricuspid Valve: The tricuspid valve is normal in structure but is abnormal in function. There is moderate tricuspid regurgitation. The TR jet is eccentric. The right ventricular systolic pressure is estimated at 45 mmHg assuming a right atrial pressure of 8 mm Hg. Pulmonic Valve: The pulmonic valve is not well visualized. There is a trace or physiologic amount of pulmonic regurgitation. Great Vessels: The aortic root is normal size. The ascending aorta is normal in size. The IVC is of normal diameter and collapses less than 50% with a sniff. This suggests a right atrial pressure of 8 mm Hg. Pericardium/ Pleura There is no pericardial effusion. MMode/2D Measurements & Calculations LVIDd: 4.3 cm RA long axis LVOT diam LVIDs: 3.0 cm LA A2 area: 19.3 cm FS: 31.1 % LA A4 area: 20.5 cm RA area asc Aorta IVSd: 0.95 cm LA length (vol): 5.6 cm Diam: 3.2 cm LVPWd: 0.86 cm LA vol: 60.1 ml : 18.9 cm LA vol index RA vol: 57.1 ml RA : 33.0 mm2 IVC diam: 2.0 cm LV crawford. diameter/BSA LV sys. diameter/BSA RVD1 (basal) (cm/m^2): 2.5 (cm/m^2): 1.7 Doppler Measurements & Calculations Ao V2 max MV E max christos MV E/A: 3.0 TR max christos : 104.1 cm/sec : 155.6 cm/sec Med Peak E' Christos : 302.7 cm/sec Ao max PG MV A max christos TR max PG : 4.3 mmHg : 51.2 cm/sec E/E' med: 42.3 : 37.2 mmHg Ao mean PG MV P1/2t: 62.8 msecLat Peak E' Christos PA V2 max : 70.0 cm/sec LVOT Max Christos MVA(VTI): 0.84 cm E/E' lat: 32.8 PA mean PG : 69.0 cm/sec MR ERO: 0.37 cm2 E/e' average: 37.6 MV A dur: 0.16 sec PA Accel Time JOSE(I,D): 1.6 cm : 0.08 sec sev ratio MV V2 mean MV P1/2t max christos Ao V2 mean LV V1 max PG : 73.9 cm/sec : 66.6 cm/sec MV mean PG MVA(P1/2t): 3.5 cm2Ao V2 VTI: 19.2 cm LV V1 VTI JOSE(V,D): 1.4 cm2 : 14.2 cm MV V2 VTI: 35.6 cm MV dec time : 0.22 sec MR flow rate PA V2 mean JOSE indexed to BSA : 168.9 cm3/sec : 49.6 cm/sec (cm^2/m^2): 0.91 MR PISA radius Electronically signed by: Mark Salazar on Reading Physician:05/14/2016 04:36 PM Brief History 81-year-old lady with past medical history of systolic CHF, CKD3, HLD, PAF , Mitral regurgitation was discharged from hospital yesterday after EP ablation for symptomatic drug refractory PAF on 05/12/16. She had some dyspnea before she left the hospital and was given Lasix before discharge was progressively worsened over the past 24 hours. She also noted that she gained 10 pounds from her prehospitalization weight which prompted ED visit. She also feels that her legs and abdomen are swollen. 2 Daughters at bedside side also feel she had gained weight the last 2-3 days. She denies chest pain. Denies fever. She was given Lasix and her home bumex yesterday but did not micturate much since yesterday. ED course: BP 90/60 otherwise unremarkable vitals. Basal crackles, murmur of MR. chest x-ray read as unchanged but looks more congested to me . EKG A- paced at 70, troponin 0.17 ED physician discussed the case with her primary front desk auxiliary , Lasix 80 mg IV given, limited echo ordered. Hospitalist service requested for admission for CHF exacerbation. Hospital Course 81-year-old lady with past medical history of systolic CHF, CKD3, HLD, PAF ,MR with recent ablation for medication refractory PAF came to the ED due to worsening dyspnea and weight gain. # Acute on chronic systolic CHF,poa: Reviewd the echo from 05/14/16 - She was initially having Worsening dyspnea and 10 pound weight gain likely due to CHF exacerbation.baseline EF 45-55%. Echocardiogram ordered to rule out pericardial effusion. Showed significantly increased Mitral Regurgitation, Normal EF, PAcemaker, moderate TR -CHF exacerbation precipitated likely due to significant mitral regurgitation. Daughter notes that the patient received IV fluid on recent hospitalization and was given Lasix but did not pee much . Only recent medication change is addition of amiodarone and no bradycardia. Her home medications are initially continued but lated was switched to IV bumex Q12 and spironolacone. -cardiology Dr Garsia notified by ED. He asked to leave her on Atenolol 50 mg (which was reviewed due to concern for hypotension) to avoid rebound effects. He also felt that MV clips procedure is not the best option for the patient given her pulmonary vasculitis (RA realted). He asked for her to be sent home on Atenolol 100 mg QD. Patient is breathing well on the day of discharge, ambulating and wanting to go home. Dr. Layton to review her PFT prior to her f /u to optimize her therapy in that regard. # Elevated troponin, mild, acute,poa: Likely due to CHF exacerbation. Chronic Atrial Fibrillation: INR is monitored and warfarin was administrated appropriately # CKD3 : Monioted her response in the light of diuresis with daily labs Exam Vital Signs (Last) Date Time Temp Pulse Resp B/P Pulse Ox O2 Delivery O2 Flow Rate FiO2 05/16/16 08:59 70 05/16/16 08:41 111/71 05/16/16 05:23 37.1 16 92 Room Air 05/14/16 16:00 2 Exam General: NAD HEENT: normocephalic, atruamatic Heart: 2+ MR murmur w/ radiation to axilla NEck: Negative for JVD Lungs: Improved lung sounds/crackles, no wheezing Abd: Soft, non-tender Ext: Negative for edema Psych: Negative for anxiety Neuro: No focal deficits Test 05/14/16 11:25 05/14/16 14:45 05/14/16 15:49 05/15/16 06:12 Magnesium Level 1.9mg/dL (1.6-2.6) Hold Monroe Top Tube Received (Received) Urine Color Straw (YELLOW) Urine Appearance Hazy (CLEAR,HAZY) Urine pH 5.5 (5.0-8.0) Urine Specific Llewellyn 1.010 (1.003-1.035) Urine Protein Negativemg/dL (NEG,TRACE) Urine Glucose (UA) Negativemg/dL (NEGATIVE) Urine Ketones Negativemg/dL (NEGATIVE) Urine Occult Blood Negative (NEGATIVE) Urine Nitrite Negative (NEGATIVE) Urine Bilirubin Negative (NEGATIVE) Urine Urobilinogen Normalmg/dL (NORMAL) Urine Leukocyte Esterase Negative (NEGATIVE) Urine RBC 0-2/hpf (0-2) Urine WBC 0-5/hpf (0-5) Urine Epithelial Cells Occasional/hpf (NONE-MOD) Urine Crystals None seen (NONE SEEN) Urine Bacteria None/hpf (NONE-FEW) Urine Hyaline Casts Occasional/lpf (NONE) Urine Granular Casts None seen (NONE SEEN) Urine Waxy Casts None seen (NONE SEEN) Urine Red Blood Cell Casts None seen (NONE SEEN) Urine White Blood Cell Casts None seen (NONE SEEN) Urine Mucus None seen (None Seen) Urine Trichomonas None seen (NONE SEEN) Urine Yeast None (NONE SEEN) Urinalysis Comment None Urine Culture Reflexed Not indicated Lactic Acid Level 1.1mmol/L (0.4-2.0) Troponin T 0.162ug/L (0.0-0.011) Pro-B-Type Natriuretic Peptide 3084pg/mL (0-738) Procalcitonin 0.07ng/mL (0.00-0.08) Total Bilirubin 0.5mg/dL (0.0-1.2) Aspartate Amino Transf (AST/SGOT) 19U/L (0-50) Alanine Aminotransferase (ALT/SGPT) 16U/L (0-32) Alkaline Phosphatase 35U/L (25-165) Total Protein 6.1g/dL (6.4-8.4) Albumin 3.4g/dL (3.4-5.0) Triglycerides Level 132mg/dL (0-149) Cholesterol Level 116mg/dL (100-199) LDL Cholesterol, Calculated 52.600mg/dL (0-99) VLDL Cholesterol 26.400mg/dL HDL Cholesterol 37mg/dL (>39) Cholesterol/HDL Ratio 3.14 (0.0-4.4) Test 05/16/16 06:15 05/16/16 08:40 White Blood Count 5.6th/mm3 (3.8-10.1) Red Blood Count 3.24mil/mm3 (3.90-5.20) Hemoglobin 9.7g/dL (12.0-15.6) Hematocrit 30.5% (35.0-46.0) Mean Corpuscular Volume 94.1fL (81-100) Mean Corpuscular Hemoglobin 29.9pg (27.0-35.0) Mean Corpuscular Hemoglobin Concent 31.8% (32.0-37.0) Red Cell Distribution Width 14.7% (12.3-15.4) Platelet Count 167bil/L (150-400) Neutrophils (%) (Auto) 52.7% (40-74) Lymphocytes (%) (Auto) 27.5% (14-46) Monocytes (%) (Auto) 11.9% (4-12) Eosinophils (%) (Auto) 6.6% (0-5) Basophils (%) (Auto) 1.1% (0-3) Sodium Level 144mEq/L (134-144) Potassium Level 3.5mEq/L (3.5-5.2) Chloride Level 103mEq/L (97-108) Carbon Dioxide Level 26mmol/L (18-29) Blood Urea Nitrogen 36mg/dL (8-27) Creatinine 1.56mg/dL (0.57-1.00) Estimat Glomerular Filtration Rate 46mL/min (>59) Glucose Level 112mg/dL (60-99) Calcium Level 8.3mg/dL (8.5-10.1) Prothrombin Time 22.9sec (8.1-12.5) Prothromb Time International Ratio 2.11ratio Discharge Medications Discharge Medications Allopurinol (Allopurinol) 100 Mg Tablet 100 MG PO DAILY (Reported) Amiodarone (Amiodarone) 200 Mg Tablet 200 MG PO Q12 Prescribed by: CHIOMA MARTÍNEZ Atenolol (Atenolol) 100 Mg Tablet 100 MG PO DAILY Prescribed by: JEFFRY MISTRY DO Biotin (Biotin) 1,000 Mcg Tab.chew 2,500 MCG PO DAILY (Reported) Bumetanide (Bumetanide) 1 Mg Tablet 1 MG PO DAILY (Reported) Calcium Carbonate (Calcium) 600 Mg Tablet 600 MG PO BID (Reported) Cholecalciferol (Vitamin D3) (Vitamin D3) 2,000 Unit Capsule 2,000 UNIT PO DAILY (Reported) Pantoprazole DR (Pantoprazole DR) 40 Mg Tablet.dr 40 MG PO 0630 Prescribed by: CHIOMA MARTÍNEZ Rosuvastatin Calcium (Crestor) 10 Mg Tablet 10 MG PO HS (Reported) Spironolactone (Spironolactone) 25 Mg Tablet 12.5 MG PO DAILY (Reported) Warfarin Sodium (Warfarin Sodium) 1 Mg Tablet 0.5 MG PO DAILY (Reported) Warfarin Sodium (Warfarin Sodium) 3 Mg Tablet 3 MG PO DAILY (Reported) patient takes total 3.5 mg p.o daily As needed Acetaminophen/Codeine 300-30mg (Tylenol/Codeine #3) 1 Each Tablet 1 TABLET PO Q4H PRN PRN Pain (Reported) Followup Plan Follow-up plan Please follow up with your PCP and cardiology in 2 weeks Discharge Diet: Low fat, Low Sodium, Heart Healthy Discharge Activity: No restrictions Jeffry Mistry DO May 17, 2016 15:55
== END 2016-05-16 14:06 | disposition home or self-care (01) | DRG 273 ==
LOC: SED 10:36 → OSC 16:49
PROVIDERS: ADMIT Internal Medicine; ATTEND Internal Medicine
PROC: 02583ZZ Destruction of Conduction Mechanism, Percutaneous Approach (ICD-10-PCS; principal; 2016-05-12)
PROC: B245ZZ4 Ultrasonography of Left Heart, Transesophageal (ICD-10-PCS; 2016-05-12)
PROC: 4A023FZ Measurement of Cardiac Rhythm, Percutaneous Approach (ICD-10-PCS; 2016-05-12)
PROC: 02K83ZZ Map Conduction Mechanism, Percutaneous Approach (ICD-10-PCS; 2016-05-12)
PROC: 4B02XSZ Measurement of Cardiac Pacemaker, External Approach (ICD-10-PCS; 2016-05-12)
PROC: 5A2204Z Restoration of Cardiac Rhythm, Single (ICD-10-PCS; 2016-05-12)
DX: I48.0 Paroxysmal atrial fibrillation (principal); I50.23 Acute on chronic systolic (congestive) heart failure; I34.0 Nonrheumatic mitral (valve) insufficiency; N18.3 Chronic kidney disease, stage 3 (moderate); M06.9 Rheumatoid arthritis, unspecified; E78.5 Hyperlipidemia, unspecified; M10.9 Gout, unspecified; I07.1 Rheumatic tricuspid insufficiency; I25.10 Atherosclerotic heart disease of native coronary artery without angina pectoris; Z86.73 Personal history of transient ischemic attack (TIA), and cerebral infarction without residual deficits; Z95.0 Presence of cardiac pacemaker; Z79.01 Long term (current) use of anticoagulants; Z87.891 Personal history of nicotine dependence

== ENCOUNTER 2016-08-30 01:56 | Day surgery (SDC) | payer MEDICARE, OTHER ==
[~2016-08-30 01:56] MED LIST changes: -ATEN100T PO; +ATEN50TA PO; +CYAN10008 PO; +WARF2.5T8 PO
[2016-08-30] MEDS ORDERED: Methohexital 10 mg/mL 50 mL Inj IV ONE (11:00)
--- NOTE | 2016-08-30 11:19 | NUR ---
Pt's cardioversion cancelled by Dr. Garsia. Pt given follow up instructions for interrogation of pacemaker and further follow up appts. Pt had no further questions at time of discharge and left ambulatory accompanied by family.
--- NOTE | 2016-08-30 21:54 | OUT PROC ---
[address] [address] PROCEDURE NOTE PATIENT: PAULA JEAN : 1935 MR#: [id number] ADMIT: 08/30/2016 JOB ID: [id number] DATE OF PROCEDURE: This is an 81-year-old patient with a history of recurrent symptomatic atrial flutter with a pacemaker in place, who presented this morning for elective cardioversion of persistent atrial flutter. She had been placed on amiodarone previously. Once she was prepped, it was noted on the monitor that she was in a dual-chamber paced mode and obviously not in persistent atrial flutter. Therefore, a cardioversion procedure was not needed. I saw the patient briefly and reviewed the fact that cardioversion was not needed. I made arrangements for her to come over to our office and have her device interrogated to determine when she converted and whether or not she is having paroxysms of atrial flutter. She is scheduled to see me in the office in October, and I will ask her to keep that appointment, and in the interim, will continue with her current amiodarone dose. I am hopeful that we will be able to stop the amiodarone in the next few months depending upon her clinical course.
== END 2016-08-30 23:59 | disposition home or self-care (01) ==
LOC: SOUO 01:56
PROVIDERS: ATTEND Internal Medicine Cardiovascular Disease
DX: I48.92 Unspecified atrial flutter (principal); Z79.82 Long term (current) use of aspirin; Z79.899 Other long term (current) drug therapy; Z95.0 Presence of cardiac pacemaker

== ENCOUNTER 2016-09-10 10:21 | Inpatient (IN) | payer MEDICARE, OTHER ==
[2016-09-10] VITALS (12 sets, daily range): BP systolic 88–118; BP diastolic 55–101; PULSE 70–79; RESP 16–30; O2SAT 92–99
[~2016-09-10] VITALS: Ht 160 cm; Wt 65.6 kg
--- NOTE | 2016-09-10 10:47 | ED.REPORT ---
HPI-Dyspnea / Wheezing Date of Service Sep 10, 2016 ED Provider: Estevan Gallegos MD Pt is an 81 year old female with a history of A-fib, CHF, and hyperlipidemia who presents to the ED complaining of worsening SOB onset 2 weeks ago. She c/o dyspnea with exertion, decreased urination, leg swelling, insomnia secondary to the SOB, and weight gain. The pt reports that she has gained 6-8 lbs in less than a week. She denies any other symptoms. Her last dose of Viewmax was this morning, and she reports that she took an extra dosage to help alleviate her symptoms. Pt reports chronic cough with chest pain secondary to the cough. She denies a history of Bipap. Nursing Notes Stated Complaint: SOB Chief Complaint: Respiratory Distress Nursing Notes Reviewed: Yes ([facility] [employer] not reconciled EMR indicates h/o warfarin) Allergies: Coded Allergies: flecainide (Verified Allergy, Severe, Nausea,Vomiting, 05/12/16) Gold Salts (Verified Allergy, Intermediate, Rash, 05/12/16) Procaine HCl (Verified Allergy, Intermediate, Nausea, 02/05/16) clopidogrel bisulfate (Verified Allergy, Intermediate, Rash,Itching,, 02/04) Scheduled Allopurinol (Allopurinol) 100 Mg Tablet 100 MG PO DAILY Amiodarone (Amiodarone) 400 Mg Tablet 400 MG PO DAILY Atenolol (Atenolol) 50 Mg Tablet 50 MG PO DAILY Biotin (Biotin) 1,000 Mcg Tab.chew 2,500 MCG PO DAILY Bumetanide (Bumetanide) 1 Mg Tablet 1 MG PO DAILY Calcium Carbonate (Calcium) 600 Mg Tablet 600 MG PO BID Cholecalciferol (Vitamin D3) (Vitamin D3) 2,000 Unit Capsule 2,000 UNIT PO DAILY Pantoprazole DR (Pantoprazole DR) 40 Mg Tablet.dr 40 MG PO 0630 Rosuvastatin Calcium (Crestor) 10 Mg Tablet 10 MG PO HS Spironolactone (Spironolactone) 25 Mg Tablet 12.5 MG PO DAILY Scheduled PRN Acetaminophen/Codeine 300-30mg (Tylenol/Codeine #3) 1 Each Tablet 1 TABLET PO Q4H PRN PRN Pain Albuterol Neb Soln (Albuterol Neb Soln) 2.5 Mg/3 Ml Vial.neb 2.5 MG INHALATION Q4H PRN PRN For Shortness of Breath Miscellaneous Medications Cyanocobalamin (Vitamin B-12) (Vitamin B-12) 1,000 Mcg Tablet 2,500 MCG PO Warfarin Sodium (Jantoven) 2.5 Mg Tablet 2.5 MG PO General Time Seen by MD: 10:39 Chief Complaint Shortness of breath Hx Obtained From: Patient Arrived By: Walk-in Sudden in Onset?: No Onset Occurred: More than a week ago... (2 weeks) Symptom Duration: Since onset Quality: Painful Severity: Current: Moderate Severity: Maximum: Moderate Recent Healthcare: No recent doctor visit Similar Sx Previous: Yes Past Medical History Past Medical History Notes: Seen in ED 01/14/16 for CHF Negative Nuclear Stress Test 07/15/15 Echo 06/2015 EF 60-65% Cardiology: Dr. 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 Rheumatoid arthritis. Reports: Congestive heart failure, Hyperlipidemia Past Surgical History Pacemaker placement Frozen shoulder surgery. Kidney stone removal Lung biopsy, which showed rheumatoid arthritis-related changes. Reports: Appendectomy, Hysterectomy Smoking History Former Smoker Social History Alcohol Use: Denies alcohol use Other Social History: Good social support, Ambulatory Status Independent Review of Systems Constitutional: Denies: Fever Respiratory: Reports: Dyspnea on exertion, Non-productive cough, Shortness of breath Cardiovascular: Reports: Chest pain Musculoskeletal: Reports: Extremity swelling Complete sys rev & neg: except as marked. Female: Reports: Urination decreased Psychiatric: Reports: Insomnia Physical Exam Initial Vital Signs Vital Signs (First) Date Time Temp Pulse Resp B/P Pulse Ox O2 Delivery O2 Flow Rate FiO2 09/10/16 10:23 36.5 79 30 101/68 99 09/10/16 10:57 Room Air 2 Nasal Cannula 09/10/16 11:16 28 Initial VS: Reviewed, Vital signs abnormal (tachypneic) Head / Eyes: Atraumatic, Normocephalic Abdomen / GI: Soft, Non-tender Extremities: Vascular intact, Neuro intact Skin: Warm, Dry, No cyanosis Neurologic: Alert, Oriented, Nonfocal Psychiatric: Mood/affect normal, Behavior normal General/Constitutional: Awake, Alert, Cooperative She is mentating well. Neck: Atraumatic, Full range of motion Respiratory / Chest: Atraumatic Resp Distress / Stridor: Positive: Resp distress mild Rales bilaterally Cardiovascular: Heart rate NL, Regular rhythm, Heart sounds NL, No murmurs Lower Ext Edema: Positive: Bilateral 2+, Pitting Interpretation & Diagnostics Lab Results Interpretation Result Diagram: 09/10/16 1040 09/10/16 1040 Test 09/10/16 10:40 White Blood Count 6.6th/mm3 (3.8-10.1) Red Blood Count 3.61mil/mm3 (3.90-5.20) Hemoglobin 10.3g/dL (12.0-15.6) Hematocrit 32.6% (35.0-46.0) Mean Corpuscular Volume 90.3fL (81-100) Mean Corpuscular Hemoglobin 28.5pg (27.0-35.0) Mean Corpuscular Hemoglobin Concent 31.6% (32.0-37.0) Red Cell Distribution Width 16.0% (12.3-15.4) Platelet Count 275bil/L (150-400) Neutrophils (%) (Auto) 68.1% (40-74) Lymphocytes (%) (Auto) 16.3% (14-46) Monocytes (%) (Auto) 13.7% (4-12) Eosinophils (%) (Auto) 0.5% (0-5) Basophils (%) (Auto) 1.1% (0-3) Prothrombin Time 23.4sec (8.1-12.5) Prothromb Time International Ratio 2.15ratio Sodium Level 135mEq/L (134-144) Potassium Level 3.9mEq/L (3.5-5.2) Chloride Level 99mEq/L (97-108) Carbon Dioxide Level 17mmol/L (18-29) Blood Urea Nitrogen 82mg/dL (8-27) Creatinine 2.84mg/dL (0.57-1.00) Estimat Glomerular Filtration Rate 23mL/min (>59) Glucose Level 176mg/dL (60-99) Calcium Level 8.7mg/dL (8.5-10.1) Magnesium Level 2.2mg/dL (1.6-2.6) Total Bilirubin 0.5mg/dL (0.0-1.2) Aspartate Amino Transf (AST/SGOT) 59U/L (0-50) Alanine Aminotransferase (ALT/SGPT) 68U/L (0-32) Alkaline Phosphatase 82U/L (25-165) Troponin T 0.010ug/L (0.0-0.011) Pro-B-Type Natriuretic Peptide 52925fv/mL (0-738) Total Protein 7.2g/dL (6.4-8.4) Albumin 3.8g/dL (3.4-5.0) Lab Results Interpretation: CBC nl CMP - acute renal insuffiency BNP elevated troponin negative INR therapeutic ECG Interpretation ECG Interpretation: Atrial ventricular dual paced complexes with a rate of 71. Time: 11:02 Interpreted by: ED physician X-Ray Chest Interpretation Chest Xray Interpretation: IMPRESSION: Improved pleural effusions and bibasilar atelectasis/scarring. Dictated by: Naveen Meza M.D. on 09/10/2016 at 11:26 View: Portable, 1 view Interpretation / Wet Read by: Interpret - Radiologist Re-Eval/Medical Decision Med Decision/Clinical Course This is an 81-year-old female presents with progressive shortness of breath has been much more severe over the past 3 days. She has on from being able to walk may be a block with rest a month ago, getting extremely short of breath with just 5 feet, and even shortness of breath at rest. She has orthopnea, paroxysmal nocturnal dyspnea, and has noted a roughly 8 pound weight gain in the past week. She did restart and take an extra 2 mg of Bumex this morning, but had no effect-reports she is making small amounts of urine. She denies chest pain, she denies fever. On exam she does appear to Taking dipstick, in fact his breathing 30s on arrival -although she is not hypoxic. She does have rails on exam, she does have some mild lower extremity edema. Her chest x-ray reveals some CHF, on since trace pleural effusions. Blood work is notable for progressive renal insufficiency, likely contributing to matters. She is therapeutic on INR. The patient actually had enough dyspnea. Offered her CPAP, which she agreed- and she is much improved on exam. She is not in severe distress or lew failure, however her blood pressure was only around 105 systolic-there is not much room for traditional medical therapy initially. Given her level of symptoms, given the development of renal insufficiency-the plan is admission for continued management. Cardiology consultation for their management in input is being requested, as well as nephrology thoughts given the progressive renal insufficiency. Source of Hx: Old records Re-Evaluation/Progress : Time of Eval: 12:44 Re-Evaluation/Progress Note: Pt rechecked. Informed pt of plan for admission. Pt understands and agrees with plan for admission. All questions addressed. Consultation #1: Referral / Consult Name: Sherwin Crawford MD Consulted With: Hospitalist Call Returned at: 12:40 Resident Program Specialist: Will see patient, Agrees with eval, Agrees with plan, Accepts admit Note: He recommends a dosage of Viewmax. Consultation #2: Referral / Consult Name: Conrad Macias DO Consulted With: Nephrology Call Returned at: 12:47 Resident Program Specialist: Agrees with eval, Agrees with plan Consultation #3: Referral / Consult Name: Alisa Trevizo MD Consulted With: Cardiology Call Returned at: 12:52 Resident Program Specialist: Agrees with eval, Agrees with plan Note: Will consult with pt in next few days. Differential Diagnosis: Positive: Congestive heart failure, Respiratory insufficiency, Negative: Acute coronary syndrome, COPD exacerbation, Dysrhythmia, Hypertensive emergency, Panic attack, Pneumonia, Pneumothorax, Pulmonary embolism Counseled Regarding: Diagnosis, Lab results, Need for admission Discharge & Departure Impression: Primary Impression: Acute exacerbation of congestive heart failure Congestive heart failure type: unspecified congestive heart failure type Qualified Code: I50.9 - Heart failure, unspecified Additional Impressions: Acute renal insufficiency Anticoagulated on Coumadin Disposition: ADMITTED TO HOSPITAL Discharge Condition All VS Reviewed: Yes Condition: Stable Referrals: Sha Melara MD (PCP) Sherry Attestation Portions of this note were transcribed by Ember Castillo. IDr. Gallegos personally performed the history, physical exam and medical decision-making; I reviewed and confirmed the accuracy of the information in the transcribed note. Signed by: Sherry Aguilar, 09/10/16 and 12:50. copies to: Sha Melara MD, Matthew F MD Sep 10, 2016 10:47 Ember Reveles Sep 10, 2016 11:13
[2016-09-10 10:57] LABS: BASOPHILS % (AUTO) 1.1 % (0-3); EOSINOPHILS % (AUTO) 0.5 % (0-5); MONOCYTES % (AUTO) 13.7 % (4-12); Mean Corpuscular Hemoglobin 28.5 pg (27.0-35.0); Mean Corpuscular Volume 90.3 fL (81-100); NEUTROPHILS % (AUTO) 68.1 % (40-74); Platelet Count 275 bil/L (150-400)
[2016-09-10 11:06] LABS: INR 2.15 ratio
[2016-09-10 11:15] LABS: TROPONIN T 0.01 ug/L (0.0-0.011)
[2016-09-10] MEDS ORDERED: ALBU2.5V4 INHALATION (11:21)
[2016-09-10] MEDS ORDERED: AMIO400T4 PO (11:21)
[2016-09-10 11:26] LABS: Magnesium 2.2 mg/dL (1.6-2.6)
--- NOTE | 2016-09-10 11:29 | DRSVH ---
PROCEDURE: X-RAY CHEST ONE VIEW, PORTABLE ([id number]) INDICATIONS: SHORTNESS OF BREATH TECHNIQUE: One view of the chest was acquired. COMPARISON: [facility], CR, XR CHEST 1VW (PORTABLE), 05/14/2016, 11:02. FINDINGS: Surgical changes and devices: Left-sided cardiac pacer. Lungs and pleura: Improving now minimal bilateral pleural effusions with bibasilar atelectasis/scarri ng. Mediastinum: Mediastinal contours appear normal. Heart size is normal. Bones and chest wall: No suspicious bony lesions. Overlying soft tissues appear unremarkable. IMPRESSION: Improved pleural effusions and bibasilar atelectasis/scarring. Dictated by: Naveen Meza M.D. on 09/10/2016 at 11:26 Approved by: Naveen Meza M.D. on 09/10/2016 at 11:27
[2016-09-10] MEDS ORDERED: Nitroglycerin 2% 1 Gm Ointment TOPICAL SCH (12:40)
[2016-09-10] MEDS ORDERED: Bumetanide 0.25 mg/mL 4 mL Inj IV ONE (12:40)
[2016-09-10] MEDS ORDERED: Alum-Mag Hydrox-Simeth 30 mL Suspension PO PRN (13:05)
[2016-09-10] MEDS ORDERED: Ondansetron 2 mg/mL 2 mL Inj IVPUSH PRN (13:05)
[2016-09-10] MEDS ORDERED: Senna-Docusate 8.6-50 mg Tablet PO PRN (13:35)
[2016-09-10] MEDS ORDERED: Polyethylene Glycol (PEG) 17 Gm Powder PO PRN (13:35)
--- NOTE | 2016-09-10 16:17 | PCM.HPMED ---
Subjective Date of Service Sep 10, 2016 Primary Provider: Admitting Physician: Sherwin Crawford MD Primary Care Physician: Sha Melara MD Attending Physician: Sherwin Crawford MD Admit Status: From the Emergency Department, Admit to [facility], [facility] Telemetry Chief Complaint: SOB History of Present Illness: Ms. Qian Harden is an 81 year old female with a history of diastolic CHF, CKD, HLD, Paroxysmal atrial fibrillation on anticoagulation, and mitral regurgitation who presents to the ED complaining of worsening SOB onset 2 weeks ago. She states that she was in [facility] for the holiday and got back here on September 07. Since then her symptoms have progressively worsened. Patient complains of worsening dyspnea, worse with exertion, decreased urination , leg swelling, and weight gain. Her daughters report that she has gained 6-8 lbs in less than a week. Other associated symptoms include orthopnea and paroxysmal noctural dyspnea. She denies any other symptoms, including CP, palpitations, dizziness, headache, nausea, vomiting, worsening cough, fever, or chills. She admits to a chronic dry cough that has not been getting worse. She does not use O2 or Bipap at home. Her last dose of Bumex 2mg was this morning, and she reports that she took an extra dosage to help alleviate her symptoms, but had no effect. Patient denies any recent change in her medication besides a possible increase in dose of the Amiodarone. Patient had similar symptoms like this in May 2016 when she had an ablation and was started on Amiodarone at that time. She had a pacemaker implantation 3 years ago. Per the patient's family, Dr. Garsia plans to do a mitral valve clip in the future. In the ED, patient twas found to have BP of 101/68, HR 79, RR 30, Pulse Ox 99 on Bipap, and Temp 36.5. CXR showed improved bilateral pleural effusions and bibasilar atelectasis/scarring. She received a dose of Bumex 0.5mg and put on BiPAP. Her symptoms improved at the time of admission. Labs significant for worsening renal function BUN 82, Cr 2.[address] [place] [address]. Therapeutic INR 2.15. Review of Systems: A complete ROS was reviewed with the patient and is otherwise negative unless stated otherwise in the HPI. Allergies Coded Allergies: flecainide (Verified Allergy, Severe, Nausea,Vomiting, 05/12/16) Gold Salts (Verified Allergy, Intermediate, Rash, 05/12/16) Procaine HCl (Verified Allergy, Intermediate, Nausea, 02/05/16) clopidogrel bisulfate (Verified Allergy, Intermediate, Rash,Itching,, 02/04) Home Medications Scheduled Allopurinol (Allopurinol) 100 Mg Tablet 100 MG PO DAILY Amiodarone (Amiodarone) 400 Mg Tablet 400 MG PO DAILY Atenolol (Atenolol) 50 Mg Tablet 50 MG PO DAILY Biotin (Biotin) 1,000 Mcg Tab.chew 2,500 MCG PO DAILY Bumetanide (Bumetanide) 1 Mg Tablet 1 MG PO DAILY Calcium Carbonate (Calcium) 600 Mg Tablet 600 MG PO BID Cholecalciferol (Vitamin D3) (Vitamin D3) 2,000 Unit Capsule 2,000 UNIT PO DAILY Pantoprazole DR (Pantoprazole DR) 40 Mg Tablet.dr 40 MG PO 0630 Rosuvastatin Calcium (Crestor) 10 Mg Tablet 10 MG PO HS Spironolactone (Spironolactone) 25 Mg Tablet 12.5 MG PO DAILY Scheduled PRN Acetaminophen/Codeine 300-30mg (Tylenol/Codeine #3) 1 Each Tablet 1 TABLET PO Q4H PRN PRN Pain Albuterol Neb Soln (Albuterol Neb Soln) 2.5 Mg/3 Ml Vial.neb 2.5 MG INHALATION Q4H PRN PRN For Shortness of Breath Miscellaneous Medications Cyanocobalamin (Vitamin B-12) (Vitamin B-12) 1,000 Mcg Tablet 2,500 MCG PO Warfarin Sodium (Jantoven) 2.5 Mg Tablet 2.5 MG PO PMH AFIB Moderate MR and TR 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 Rheumatoid arthritis. Reports: Congestive heart failure, Hyperlipidemia Seen in ED 01/14/16 for CHF Negative Nuclear Stress Test 07/15/15 Echo 06/2015 EF 60-65% Cardiology: Dr. Garsia Surgical History Recent ablation of atrial fibrillation Pacemaker placement Frozen shoulder surgery. Kidney stone removal Lung biopsy, which showed rheumatoid arthritis-related changes. Reports: Appendectomy, Hysterectomy Family History Noncontributory Social History Hx Alcohol Use: Yes (glass of wine nightly) Hx Substance Use: No Hx Tobacco Use: Yes (quit in 1971) Smoking Status: Former Smoker Living Arrangement: with Family Additional Information Independent ambulation at baseline Exam Vital Signs Vital Sign - Last Date Time Temp Pulse Resp B/P Pulse Ox O2 Delivery O2 Flow Rate FiO2 09/10/16 15:03 36.9 77 22 105/73 97 Nasal Cannula 1.50 09/10/16 13:36 28 Exam General: Awake, Alert, Cooperative, in no acute distress with NC HEENT: Atraumatic, Normocephalic, EOMI, DEVONTE. Dry mucosal membrane. Neck: Atraumatic, Full range of motion, JVD noted. Respiratory: bibasilar rales, no wheezes noted, normal respiratory effort, no increased work of breathing. Cardio: regular rate and rhythm, systolic murmur noted. Abdomen: Soft, nontender, nondistended, normoactive bowel sounds. Extremities: Vascular intact, Neuro intact, Moderate pitting edema in bilateral lower extremities up to the mid tibia. Skin: Warm, Dry, No cyanosis. Neurologic: Alert, Oriented, Nonfocal. Psychiatric: Mood/affect normal, Cooperative. Lab and Diagnostics Result Diagram: 09/10/16 1040 09/10/16 1040 X-Rays, CTs and MRIs PROCEDURE: X-RAY CHEST ONE VIEW, PORTABLE IMPRESSION: Improved pleural effusions and bibasilar atelectasis/scarring. Dictated by: Naveen Meza M.D. on 09/10/2016 at 11:26 Approved by: Naveen Meza M.D. on 09/10/2016 at 11:27 12-lead ECG Atrial ventricular dual paced complexes with a rate of 71. Cardiac Echo Impressions Interpretation Summary for Echo on 07/14/16 The left ventricle is normal in size. Left ventricular systolic function is normal without focal wall motion abnormalities. The ejection fraction is estimated to be 55-60%. Diastolic function could not be accurately assessed due to confounding valvular disease. The right ventricle is normal in size, thickness and function. There is a pacemaker lead in the right ventricle. The right ventricular systolic pressure is estimated at 43 mmHg assuming a right atrial pressure of 3 mm Hg. Compared to the prior echo exam, there has been no change in the severity of pulmonary hypertension. The left atrium is moderately dilated. Right atrial size is normal. There is moderate mitral annular calcification. There is moderate to severe mitral regurgitation. Compared to the prior echo study, there has been an increase in the severity of mitral regurgitation. There is no other significant valvular heart disease. The aortic root is normal size. Assessment & Plan 81-year-old lady with past medical history of diastolic CHF, CKD, HLD, Paroxysmal atrial fibrillation s/p pacemaker, and mitral regurgitation with recent ablation for medication refractory PAF came to the ED due to worsening dyspnea and weight gain. # Acute on chronic systolic CHF, poa, active -Worsening dyspnea and 8-pound weight gain likely due to CHF exacerbation. baseline EF 45-55%. Echocardiogram ordered to rule out pericardial effusion -CHF exacerbation precipitated by unclear etiology. Only recent medication change is increased dose of amiodarone. Denies change in diet, but possible increased sodium intake. Patient is compliant with meds . -Patient takes Bumex 1mg daily. Will hold and will consider Torsemide PO at discharge. Bumex 0.5mg IV given in ED, will give one dose of 40 mg IV overnight. Follow clinically and will consider additional dose of Lasix. -Daily weight, intake and output monitoring -O2 via NC -BPN >96669. -Last Echo in July 2016 showed EF of 55-60% as above. -Continue home atenolol, spironolactone. -telemetry -cardiology Dr. Sherman notified by ED. Regular training and development assistant is Dr. Garsia. # Acute on chronic kidney disease, POA, active. -Suspect some GILLIAN on CKD based on low urine output even if creatinine is not significantly elevated from baseline . Will follow response to Lasix -Dr. Macias consulted in the ED and will see the patient. Appreciate his recommendation. -Avoid nephrotoxic drugs. # Paroxysmal atrial fibrillation s/p pacemaker - dual- paced now, HR 71 - Continue home atenolol and amiodarone - Continue anticoagulation with warfarin # Moderate to severe MR and TR ,chronic, stable - Patient might do a mitral valve clip sometime in the future. - Follow up with Dr. Garsia as outpatient. # Hyperlipidemia, chronic. - Resume statin #GERD, chronic. - Resume Protonix # Gout, chronic. - Hold Allopurinol. - check uric acid level Patient admitted under inpatient status with expected length of stay > 2 midnights for severity of present symptoms, complexities of treatment plan and risk for adverse events. Discussed code status: she is FULL CODE. Pain Evaluation: Adequate Pain Control Resuscitation Status: CPR: Attempt Resuscitation Time spent 60 minutes Attending Statement Patient seen and examined with house staff. Agree with all attached documentation. Shayla Vazquez DO Sep 10, 2016 16:17 Sherwin Crawford MD Sep 12, 2016 18:20
--- NOTE | 2016-09-10 16:21 | NUR ---
Admit.. Received from ER at 1330. Pt denies SOB at rest but when returning from the commode back to bed did have work of breathing which resolved soon after. Is on 1.5 liters cannula and is sleeping comfortable currently. Family and pt oriented to CCU and routines.
[2016-09-10] MEDS ORDERED: Furosemide 10 mg/mL 4 mL Inj IVPUSH ONE ×2 (16:40→16:45)
[2016-09-10 17:08] LABS: APPEARANCE,URINE CLEAR (CLEAR,HAZY); COLOR,URINE YELLOW (YELLOW); OCCULT BLOOD,URINE NEGATIVE (NEGATIVE); UROBILINOGEN,URINE NORMAL (NORMAL)
--- NOTE | 2016-09-10 17:59 | PCM.CONPHA ---
Subjective SOB Reason for Pharmacy Consult: Anticoagulation Management Assessment/Plan Assessment/Plan Pharmacy to manage warfarin for patient with worsening CHF, renal failure and chronic A-Fib with a goal INR of 2-3: Patient usually takes warfarin 2.5mg po daily from medication reconciliation. INR today =2.15 Dose today=2.5mg INRs have been ordered x 7 with AM draws. Pharmacy will order warfarin daily. Labs on admit: HCT=32.6 PLT [address] Raymundo [facility] Sep 10, 2016 17:59
[2016-09-10] MEDS: Sodium Chloride LOK Flush 10 mL Syringe IVFLUSH SCH ×2 (18:14→20:47)
--- NOTE | 2016-09-10 18:27 | CONS ---
[address] [address] CONSULTATION REPORT PATIENT: PAULA JEAN : 1935 MR#: [id number] ADMIT: 09/10/2016 JOB ID: [id number] DATE OF SERVICE: 09/10/2016 RENAL CONSULTATION: HISTORY OF PRESENT ILLNESS: The patient is a very pleasant 81-year-old white female who is well known to me from several previous consultations. She was admitted to [facility] for acute decompensated congestive heart failure and acute on chronic kidney injury. Renal consultation is being sought for further evaluation of her acute on chronic kidney disease. I have known the patient for the last approximately eight months when we were originally consulted on her for acute decompensated congestive heart failure and acute on chronic kidney injury. At the time of discharge her creatinine had come down to 1.8. She was subsequently followed up in my office on several occasions and her last visit was June 23 of this year. She recently underwent an ablation by Dr. Srinivasan and had been doing well. Her most recent echo from several months ago showed a preserved ejection fraction of 55% to 60% and although there was no mention of diastolic dysfunction I would not be surprised if she had some significant diastolic impairment. She has been seen by Dr. Garsia in an ongoing basis for a number of different cardiac issues including atrial fibrillation and congestive heart failure. She had been on spironolactone 25 mg once a day and this was decreased to 12.5 a day because of persistent hypotension. She normally runs a systolic blood pressure in the low 100 range. She states that about a week ago she was on vacation in [facility] and had a number of dietary indiscretions including significant intake of salt-containing foods. Since that time she has had some increase in abdominal girth, weight, dyspnea with minimal exertion which has progressed over the last several days, and some mild lower extremity edema. She also has complained of a nonproductive cough, orthopnea, and last night had an episode of paroxysmal nocturnal dyspnea. She does relate some sharp chest pain over the inferior aspect of the rib cage on either side of the epigastrium. She states that this pain is exacerbated by intense coughing. She has had some changes in her oral diuretics and has not had any significant improvement in her symptomatology. This morning she was seen in the emergency department and at that time her BUN and creatinine were elevated at 82 and 2.84, which is considerably higher than her baseline which is approximately 2 mg/dL. She also had some elevation in her AST and ALT at 59 and 68, respectively. Her alkaline phosphatase was normal and her serum albumin was 3.8. She was given a dose of IV bumetanide and states that she felt some improvement. She was initially placed on BiPAP, but this was able to be removed as she underwent diuresis. PAST MEDICAL HISTORY: Significant for baseline stage 3 chronic kidney disease. The etiology of this is due to longstanding hypertension with hypertensive heart disease and hypertensive nephrosclerosis and chronic interstitial nephritis. She also has a longstanding history of hyperlipidemia, prior stroke, mitral regurgitation, rheumatoid arthritis, atrial fibrillation which is status post ablation, and a history of syncope. PAST SURGICAL HISTORY: Significant for cardiac ablation for atrial fibrillation as detailed above, pacemaker insertion, adhesive capsulitis surgery of the shoulder, lithotripsy for renal lithiasis, lung biopsy, appendectomy, and hysterectomy. ALLERGIES: SHE IS ALLERGIC TO GOLD SALTS, PROCAINAMIDE, CLOPIDOGREL, AND FLECAINIDE. SOCIAL HISTORY: She states she has a glass of wine nightly and a remote history of tobacco use. She states until recently she was active in her activities of daily living, which she performs without significant problems or restriction. FAMILY HISTORY: Noncontributory. MEDICATIONS: At time of admission include allopurinol, amiodarone, atenolol, biotin, bumetanide, calcium carbonate, vitamin D, Protonix, Crestor, and spironolactone. REVIEW OF SYSTEMS: As detailed above. Otherwise, she denies any severe headache, visual changes, syncope, nausea, vomiting, diarrhea, fever, chills, arthralgias, and rashes. PHYSICAL EXAMINATION: Revealed a well-developed pale 81-year-old white female who was alert and oriented x3, in no distress at time of my evaluation. Her blood pressure was 105/73 with a pulse rate of 77. She did not have any evidence of any conversational dyspnea. HEENT examination is remarkable for pale sclerae. Neck is supple, without adenopathy or thyromegaly; however, she did have evidence of some mild to moderate jugular venous distention at 90 degrees. Pulmonary examination showed some mild increased AP diameter. There were rales noted in the lower third of both lung singletary. Heart was irregularly irregular. Abdomen showed some mild distention, without evidence of an obvious free fluid wave, and the abdomen was nontense. There were some mild right upper quadrant tenderness with hepatomegaly, pulsatile liver, and evidence of hepatojugular reflux. There was no rebound or guarding noted. Extremities did not show any evidence of any clubbing, cyanosis, or edema. There was evidence of half and half nails. Skin turgor was good and there is no evidence of any rashes. LABORATORY EXAMINATION: As noted above at time of admission her sodium was 135, potassium 3.9, chloride 99, bicarbonate 17, BUN and creatinine were 82 and 2.84, glucose was 176. Her white count was 6.6, hemoglobin 10.3, hematocrit 32.5. Red cell indices, platelet count, and differential were normal. Urinalysis is pending at time of my dictation. Her chest x-ray showed evidence of cardiomegaly and increased pulmonary vasculature and scattered air bronchograms. Her EKG showed a paced rhythm. No acute changes were noted. IMPRESSION: 1. Acute on chronic kidney injury secondary to acute decompensated congestive heart failure. 2. Diastolic congestive heart failure. 3. Hypertension with hypertensive heart disease and hypertensive nephrosclerosis. 4. Chronic interstitial nephritis. 5. Metabolic acidosis. RECOMMENDATION: I would like to start her on furosemide 40 mg IV every 12 hours. I would also like to start hydrochlorothiazide 25 mg daily. I would also like to start sodium bicarbonate tablets 650 mg two twice a day and we need to closely follow her intake, output, and her blood pressure, along with her lab. Once again I would like to thank you for allowing me to participate in the care of this most pleasant and interesting patient. I will be following her closely with you.
[2016-09-10] MEDS ORDERED: Furosemide 10 mg/mL 4 mL Inj IVPUSH SCH (20:30)
[2016-09-10] MEDS ORDERED: Heparin 5,000 Unit/mL Inj SUBQ SCH ×2 (20:30)
[2016-09-11] VITALS (11 sets, daily range): BP systolic 80–100; BP diastolic 50–61; PULSE 69–83; RESP 16–22; O2SAT 92–96
[2016-09-11 03:10] LABS: BASOPHILS % (AUTO) 0.6 % (0-3); EOSINOPHILS % (AUTO) 0.3 % (0-5); MONOCYTES % (AUTO) 13.3 % (4-12); Mean Corpuscular Hemoglobin 28.2 pg (27.0-35.0); Mean Corpuscular Volume 90.1 fL (81-100); NEUTROPHILS % (AUTO) 69.6 % (40-74); Platelet Count 202 bil/L (150-400)
[2016-09-11 03:31] LABS: INR 2.19 ratio
--- NOTE | 2016-09-11 03:39 | NUR ---
Respiratory, activity Vs as noted. Up to bedside commode frequently to void. Tolerates activity with shortness of breath resolving once back in bed and resting. Sats on 1nc mid 90s even with activity occasionally decreasing to 90% when asleep. IV saline locked. 40mg lasix given during the evening and continues to diurese through this am. Tele v paced 80s up to 120s when out of bed.
[2016-09-11] MEDS: Pantoprazole 40 mg ER24 Tablet PO SCH (05:32)
[2016-09-11] MEDS ORDERED: AMIODARONE 400 MG PO SCH (08:30)
--- NOTE | 2016-09-11 08:46 | PCM.PHAPRO ---
Progress Date of Service: Sep 11, 2016 Warfarin dosing Date Sep 11-Sep INR 2.15 2.19 INR change 0.04 Warf Dose 2.5 MG 2.5 MG Ender Martini Sep 11, 2016 08:45
--- NOTE | 2016-09-11 09:03 | PCM.PNMED ---
Subjective Date of Service Sep 11, 2016 Subjective She is doing better this morning. Less dyspnea. She is on 2 L of oxygen. She denies any chest pain or palpitations. No leg edema or abdominal pain. No BiPAP overnight No overnight events. Exam Vital Signs Vital Sign - Last Date Time Temp Pulse Resp B/P Pulse Ox O2 Delivery O2 Flow Rate FiO2 09/11/16 05:16 71 09/11/16 03:34 91/60 09/11/16 03:20 36.6 18 93 Nasal Cannula 1.00 09/10/16 13:36 28 Intake and Output 09/10/16 09/10/16 09/11/16 Cumulative From/Thru 15:00 23:00 07:00 09/10/16 10:23 - 09/11/16 06:46 Intake Total 440 ml 440 ml Output Total 250 ml 1150 ml 1400 ml Balance -250 ml -710 ml -960 ml Intake Oral 440 ml 440 ml Output Urine Total 250 ml 1150 ml 1400 ml # Voids 1 2 3 IVs and Medications Medications Reviewed: Medications were reviewed in detail Lab and Diagnostics Result Diagram: 09/11/16 0255 09/11/16 0255 X-Rays, CTs and MRIs PROCEDURE: X-RAY CHEST ONE VIEW, PORTABLE IMPRESSION: Improved pleural effusions and bibasilar atelectasis/scarring. Dictated by: Naveen Meza M.D. on 09/10/2016 at 11:26 Approved by: Naveen Meza M.D. on 09/10/2016 at 11:27 12-lead ECG Atrial ventricular dual paced complexes with a rate of 71. Cardiac Echo Impressions Interpretation Summary for Echo on 07/14/16 The left ventricle is normal in size. Left ventricular systolic function is normal without focal wall motion abnormalities. The ejection fraction is estimated to be 55-60%. Diastolic function could not be accurately assessed due to confounding valvular disease. The right ventricle is normal in size, thickness and function. There is a pacemaker lead in the right ventricle. The right ventricular systolic pressure is estimated at 43 mmHg assuming a right atrial pressure of 3 mm Hg. Compared to the prior echo exam, there has been no change in the severity of pulmonary hypertension. The left atrium is moderately dilated. Right atrial size is normal. There is moderate mitral annular calcification. There is moderate to severe mitral regurgitation. Compared to the prior echo study, there has been an increase in the severity of mitral regurgitation. There is no other significant valvular heart disease. The aortic root is normal size. Assessment & Plan 81-year-old lady with past medical history of diastolic CHF, CKD, HLD, Paroxysmal atrial fibrillation s/p pacemaker, and mitral regurgitation with recent ablation for medication refractory PAF came to the ED due to worsening dyspnea and weight gain. # Acute on chronic systolic CHF, poa, active and improving -Worsening dyspnea and 8-pound weight gain likely due to CHF exacerbation. baseline EF 45-55%. Echocardiogram ordered to rule out pericardial effusion -CHF exacerbation precipitated by unclear etiology. Only recent medication change is increased dose of amiodarone. Denies change in diet, but possible increased sodium intake. Patient is compliant with meds . -Patient takes Bumex 1mg daily. Will hold and will consider Torsemide PO at discharge. Bumex 0.5mg IV given in ED, will give one dose of 40 mg IV overnight. Follow clinically and will consider additional dose of Lasix. -Daily weight, intake and output monitoring -O2 via NC -BPN >[id number]. -Last Echo in July 2016 showed EF of 55-60% as above. -Continue home atenolol, spironolactone. -telemetry -cardiology Dr. Sherman notified by ED. Regular parallel computing software engineer is Dr. Garsia. She is doing better overnight. Will continue Lasix IV in the 40 twice a day. We will improve activity today. # Acute on chronic kidney disease, POA, active and improving. -Suspect some GILLIAN on CKD based on low urine output even if creatinine is not significantly elevated from baseline . Will follow response to Lasix -Dr. Macias consulted in the ED and will see the patient. Appreciate his recommendation. -Avoid nephrotoxic drugs. 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 - Follow up with Dr. Garsia as outpatient. # Hyperlipidemia, chronic. POA and stable - Resume statin #GERD, chronic. - Resume Protonix # Gout, chronic. - Hold Allopurinol. - check uric acid level Patient admitted under inpatient status with expected length of stay > 2 midnights for severity of present symptoms, complexities of treatment plan and risk for adverse events. Discussed code status: she is FULL CODE. VTE Mechanical Devices: Intermittant Pneumatic CD Resuscitation Status: CPR: Attempt Resuscitation Sherwin Crawford MD Sep 11, 2016 09:03
--- NOTE | 2016-09-11 10:01 | PCM.PNNEPH ---
Subjective Date of Service Sep 11, 2016 Subjective Patient is doing considerably better today compared to yesterday. Her breathing is improved and she has less cough, orthopnea, and no chest pain, nausea, or vomiting. Blood pressures range in the upper 80s to 100s. This morning her hemoglobin is 8.8. Her sodium is 141, potassium 2.9, chloride 101, bicarbonate 20, BUN and creatinine are improved at 76 and 2.55 respectively. Exam Vital Signs Vital Sign - Last Date Time Temp Pulse Resp B/P Pulse Ox O2 Delivery O2 Flow Rate FiO2 09/11/16 08:40 70 09/11/16 03:34 91/60 09/11/16 03:20 36.6 18 93 Nasal Cannula 1.00 09/10/16 13:36 28 Intake and Output 09/10/16 09/10/16 09/11/16 Cumulative From/Thru 15:00 23:00 07:00 09/10/16 10:23 - 09/11/16 06:46 Intake Total 440 ml 440 ml Output Total 250 ml 1150 ml 1400 ml Balance -250 ml -710 ml -960 ml Intake Oral 440 ml 440 ml Output Urine Total 250 ml 1150 ml 1400 ml # Voids 1 2 3 Exam HEENT examination is remarkable for pale sclera. Neck is supple without adenopathy, thyromegaly, or jugular venous distention. Lungs are clear to auscultation but breath sounds are diminished. Pulses are absent. Heart was regular and rhythmical soft systolic murmur. Abdomen is a bit less distended and there is a slight upper quadrant tenderness and loss of reflux. She is not short evidence of any edema. Skin turgor is good. Lab and Diagnostics Result Diagram: 09/11/16 0255 09/11/16 0255 X-Rays, CTs and MRIs PROCEDURE: X-RAY CHEST ONE VIEW, PORTABLE IMPRESSION: Improved pleural effusions and bibasilar atelectasis/scarring. Dictated by: Naveen Meza M.D. on 09/10/2016 at 11:26 Approved by: Naveen Meza M.D. on 09/10/2016 at 11:27 12-lead ECG Atrial ventricular dual paced complexes with a rate of 71. Cardiac Echo Impressions Interpretation Summary for Echo on 07/14/16 The left ventricle is normal in size. Left ventricular systolic function is normal without focal wall motion abnormalities. The ejection fraction is estimated to be 55-60%. Diastolic function could not be accurately assessed due to confounding valvular disease. The right ventricle is normal in size, thickness and function. There is a pacemaker lead in the right ventricle. The right ventricular systolic pressure is estimated at 43 mmHg assuming a right atrial pressure of 3 mm Hg. Compared to the prior echo exam, there has been no change in the severity of pulmonary hypertension. The left atrium is moderately dilated. Right atrial size is normal. There is moderate mitral annular calcification. There is moderate to severe mitral regurgitation. Compared to the prior echo study, there has been an increase in the severity of mitral regurgitation. There is no other significant valvular heart disease. The aortic root is normal size. Plan Impression Impression #1 acute decompensated congestive heart failure which is resolving # 2 acute on chronic kidney injury which is resolving #3 diastolic heart failure # 4 hypertension with hypertensive heart disease and hypertensive nephrosclerosis #5 chronic interstitial nephritis #6 metabolic acidosis. Recommendations #1 to continue to replace her potassium and increase her R activity. I will also change her evaluated to torsemide 20 mg once a day. Conrad Macias DO Sep 11, 2016 10:01
[2016-09-11] MEDS ORDERED: KCl 40 mEq/D5W 500 mL 40 MEQ in IV Premix 1 EACH IV ONE (10:05)
[2016-09-11] MEDS ORDERED: Potassium Chloride 20 mEq SR Tablet PO ONE ×2 (10:45→20:15)
[2016-09-11] MEDS: Sodium Chloride LOK Flush 10 mL Syringe IVFLUSH SCH ×3 (10:54→23:31)
--- NOTE | 2016-09-11 11:12 | NUR ---
Social Work: Initial Assessment/Multidisciplinary Rounds D: Per EMR review, pt is an 81 year old female admitted for CH, Renal Failure. Pt is Medicare with [employer]; pt has no LTC insurance or VA benefits. PCP is Sha Melara MD. NOK is Erik Harden, spouse, . Advanced directives completed- requested copy for chart. No RA Score entered. INSERT OPERATOR met with the pt and spouse at bedside. Sw role explained, Discharge Planning Checklist and contact info provided. Pt and spouse live in a single story home with 0 steps to enter in [place]. Pt uses no DME, continues to drive and is completely I with all self-care and ADLs. Pt has never had HH or skilled rehab. Pt and spouse anticipate discharge home when medically stable but are receptive to discharge planning if needs arise. Pt discussed in am rounds. Pt is on day one and is being duiresed. At this time there is no concern from MD or team about pt's capacity for self-care. A: Pt who is I at baseline and lives with her spouse at home. P: Anticipate pt to discharge home via POV; INSERT OPERATOR to continue to follow pt's clinical course and assess for discharge needs. JEAN MARIE Gifford Addendum: 09/11/16 at 1117 by ALEJANDRO STEWART Amended: Links added.
[2016-09-11 12:01] LABS: Magnesium 2.1 mg/dL (1.6-2.6)
--- NOTE | 2016-09-11 15:49 | PCM.CHPCAR ---
Consult Subjective Date of service Sep 11, 2016 Date of admit Sep 10, 2016 at 12:53 Provider Requesting Consult Primary Care Physician Primary Care Physician: Sha Melara MD Chief Complaint dyspnea History of Present Illness 81 yo W h/o rheumatoid arthritis, diastolic heart failure, mitral regurgitation , and CKD admitted with dyspnea. Patient states that she has been dealing of heart failure for the past 2-3 years and keeps on getting admitted to hospital for it every few months. She was in her usual state of health until about 10 days ago when she started having dyspnea and weight gain. Despite increasing her bumex after speaking with cardiology furnace cleaner, she continued to gain weight to the point where it was difficult to breathe at rest. Therefore, she came in to our hospital for evaluation and admission. With diuresis, she feels better now. Denies chest pain, lightheadedness, or syncope. Review of Systems Review of Systems per HPI and otherwise unremarkable PMH Past Medical History # HFPEF (diastolic heart failure) # Moderate mitral regurgitation from calcific degeneration of the mitral valve # Mild mitral stenosis # Rheumatoid arthritis # CKD # HLD # Paroxysmal AF on anticoagulation s/p ablation # Anemia # CVA history Scheduled Allopurinol (Allopurinol) 100 Mg Tablet 100 MG PO DAILY (Reported) Amiodarone (Amiodarone) 400 Mg Tablet 400 MG PO DAILY (Reported) Atenolol (Atenolol) 50 Mg Tablet 50 MG PO DAILY (Reported) Biotin (Biotin) 1,000 Mcg Tab.chew 2,500 MCG PO DAILY (Reported) Calcium Carbonate (Calcium) 600 Mg Tablet 600 MG PO BID (Reported) Cholecalciferol (Vitamin D3) (Vitamin D3) 2,000 Unit Capsule 2,000 UNIT PO DAILY (Reported) Iron,Carbonyl/Ascorbic Acid (Iron 100-Vitamin C Tablet) 1 Each Tablet 1 EACH PO DAILY Pantoprazole DR (Pantoprazole DR) 40 Mg Tablet.dr 40 MG PO 0630 Potassium Chloride (Potassium Chloride) 20 Meq Tab.er.prt 20 MEQ PO DAILY TAKE WITH FOOD Rosuvastatin Calcium (Crestor) 10 Mg Tablet 10 MG PO HS (Reported) Spironolactone (Spironolactone) 25 Mg Tablet 12.5 MG PO DAILY (Reported) Torsemide (Demadex) 20 Mg Tablet 20 MG PO DAILY Scheduled PRN Acetaminophen/Codeine 300-30mg (Tylenol/Codeine #3) 1 Each Tablet 1 TABLET PO Q4H PRN PRN Pain (Reported) Albuterol Neb Soln (Albuterol Neb Soln) 2.5 Mg/3 Ml Vial.neb 2.5 MG INHALATION Q4H PRN PRN For Shortness of Breath (Reported) Miscellaneous Medications Cyanocobalamin (Vitamin B-12) (Vitamin B-12) 1,000 Mcg Tablet 2,500 MCG PO ( Reported) Warfarin Sodium (Jantoven) 2.5 Mg Tablet 2.5 MG PO (Reported) Discontinued Medications Amiodarone (Amiodarone) 200 Mg Tablet 200 MG PO Q12 Bumetanide (Bumetanide) 1 Mg Tablet 1 MG PO DAILY (Reported) Warfarin Sodium (Warfarin Sodium) 1 Mg Tablet 0.5 MG PO DAILY (Reported) Warfarin Sodium (Warfarin Sodium) 3 Mg Tablet 3 MG PO DAILY (Reported) patient takes total 3.5 mg p.o daily Current Inpatient Medications Current Medications Nitroglycerin 0.5 inch NOW TOPICAL; Start 09/10/16 at 12:40; Stop 09/10/16 at 17: 06; Status DC Al Hydrox/Mg Hydrox/Simethicone 30 ml Q6 PRN PO; Start 09/10/16 at 13:05; Stop 09/10/16 at 13:47; Status DC Ondansetron HCl Dose range: 4 mg to 8 mg Q4H PRN IVPUSH; Start 09/10/16 at 13:05 ; Stop 09/10/16 at 17:06; Status DC Acetaminophen 975 mg Q6H PRN PO; Start 09/10/16 at 13:05 Sodium Chloride 10 ml CARLOS IVFLUSH Last administered on 09/11/16t 10:54; Admin Dose 10 ML; Start 09/10/16 at 16:30 Senna 2 tablet BID PRN PO; Start 09/10/16 at 13:35 Polyethylene Glycol 17 gm DAILY PRN PO; Start 09/10/16 at 13:35 Heparin Sodium (Porcine) 5,000 unit Q12 SUBQ; Start 09/10/16 at 20:30; Status Cancel Heparin Sodium (Porcine) 5,000 unit Q12 SUBQ; Start 09/10/16 at 20:30; Stop at 20:30; Status DC Pharmacy Consult 1 ea DAILY@17 XX Last administered on 09/10/16 17:00; Admin Dose 1 EA; Start 09/10/16 at 17:00 Furosemide 40 mg BID IVPUSH Last administered on 09/10/16 20:47; Admin Dose 40 MG; Start 09/10/16 at 20:30; Stop 09/11/16 at 10:04; Status DC Hydrochlorothiazide 25 mg DAILY PO Last administered on 09/11/16 10:54; Admin Dose 25 MG; Start 09/10/16 at 17:20 Sodium Bicarbonate 1,300 mg BID PO Last administered on 09/11/16 10:53; Admin Dose 1,300 MG; Start 09/10/16 at 20:30 Atenolol 50 mg DAILY PO Last administered on 09/11/16 10:54; Admin Dose 50 MG; Start 09/11/16 at 08:30 Pantoprazole 40 mg 0630 PO Last administered on 09/11/16 05:32; Admin Dose 40 MG ; Start 09/11/16 at 06:30 Rosuvastatin Calcium 10 mg HS PO Last administered on 09/10/16 20:47; Admin Dose 10 MG; Start 09/10/16 at 21:00 Spironolactone 12.5 mg DAILY PO Last administered on 09/11/16 10:53; Admin Dose 12.5 MG; Start 09/11/16 at 08:30 Non-Formulary Medication 400 mg DAILY PO; Start 09/11/16 at 08:30; Stop 09/11/16 at 08:30; Status DC Amiodarone HCl 400 mg DAILY PO Last administered on 09/11/16 10:54; Admin Dose 400 MG; Start 09/11/16 at 08:30 Allergies: Coded Allergies: flecainide (Verified Allergy, Severe, Nausea,Vomiting, 05/12/16) Gold Salts (Verified Allergy, Intermediate, Rash, 05/12/16) Procaine HCl (Verified Allergy, Intermediate, Nausea, 02/05/16) clopidogrel bisulfate (Verified Allergy, Intermediate, Rash,Itching,, 02/04) Family History Family History Daughters are healthy Social History Hx Alcohol Use: Yes (glass of wine nightly)Hx Substance Use: NoHx Tobacco Use : Yes (quit in 1971) Smoking Status: Former Smoker Living Arrangement: with Family Exam Vital Signs Vital Sign - Last Date Time Temp Pulse Resp B/P Pulse Ox O2 Delivery O2 Flow Rate FiO2 09/11/16 12:02 36.9 72 16 80/50 95 Nasal Cannula 1.00 09/10/16 13:36 28 Intake and Output 09/10/16 09/10/16 09/11/16 Cumulative From/Thru 14:59 22:59 06:59 09/10/16 10:23 - 09/11/16 06:46 Intake Total 440 ml 440 ml Output Total 250 ml 1150 ml 1400 ml Balance -250 ml -710 ml -960 ml Intake Oral 440 ml 440 ml Output Urine Total 250 ml 1150 ml 1400 ml # Voids 1 2 3 Objective General appearance: No apparent distress, well-nourished, pleasant, cooperative HEET: Normocephalic atraumatic, no scleral icterus, tongue midline, mucous membranes moist Neck: supple Cardiovascular: RRR, normal S1 and normal S2, 3/6 holo-systolic murmur heard best at the LLSB, no rubs/gallops, PMI nondisplaced, no JVD, no peripheral edema Respiratory: Good aeration, CTAB Abdomen: Soft, nontender, nondistended, + bowel sounds Neuro: Alert, no facial droop, tongue midline, no gross motor deficits Psych: appropriate affect Skin: no rashes on face, neck, and lower extremities Lab and Diagnostics Result Diagram: 09/11/16 0255 09/11/16 1107 12-lead ECG ECG on admission showed atrial and ventricular paced rhythm. Assessment & Plan Assessment 81 yo W h/o rheumatoid arthritis, diastolic heart failure, mitral regurgitation , and CKD admitted with dyspnea: # Dyspnea from diastolic heart failure (HFPEF): patient has diastolic dysfunction with preserved EF. I reviewed the Echo myself and feel her mitral regurgitation is probably moderate. There is also mild mitral stenosis. Etiology of mitral valve pathology is calcification and age related changes. I suspect the diastolic dysfunction is probably related to her rheumatoid arthritis. I don't see evidence of constrictive pericarditis on the Echo. Her volume status appears close to euvolemia with just one day of diuresis. Plan as below: - Continue gentle diuresis with close eye on kidney. I am okay with using torsemide due to its superiority in absorption and consistent diuretic effect - Continue spironolactone 12.5mg daily - Continue HCTZ 25mg daily # Moderate mitral regurgitation from calcific degeneration of the mitral valve: as above # Mild mitral stenosis: as above # GILLIAN on CKD: etiology could be due hypervolemia. BUN improved slightly with diuresis but it may worsen with aggressive diuresis. - Continue with gentle diuresis # HLD: - Continue rosuvastatin 10mg qhs # Paroxysmal AF on anticoagulation: In atrial paced rhythm during the hospitalization so far. patient also has CVA history and has high risk for systemic thromboembolism. Plan: - Continue atenolol 50mg daily - Continue amiodarone 400mg daily - Continue therapeutic anticoagulation. - Pacemaker functioning well on telemetry. # Anemia: etiology unclear. Defer to primary team for evaluation and management. # Rheumatoid arthritis: defer to primary team and outpatient Pain Evaluation: Adequate Pain Control VTE Mechanical Devices: Intermittant Pneumatic CD Resuscitation Status: CPR: Attempt Resuscitation Alisa Trevizo MD Sep 11, 2016 15:49
[2016-09-11] MEDS ORDERED: Albuterol-Ipratropium 3 mL Inhalation Solution NEB ONE (18:05)
--- NOTE | 2016-09-11 18:07 | NUR ---
Hypotension/Respiratory No reports of chest pain/pressure/discomfort. Tele AV paced 70s, per telephone advice nurse up to 120s with activity. Systolic BP 96 this AM prior to medication administration. Per MD, administered medications, afternoon BP 80/50, resolved to 100/50 with 1600 vitals -- patient asymptomatic. No reports of SOB at rest, reports mild SOB with exertion, RN notes labored breathing sounds with ambulation. SPO2 weaned from 2L to 1L NC, weaned to RA with SPO2 at 93-95%. Reports rare non productive cough. Throughout shift, increase in labored breathing noted, per family neb treatments have been beneficial in the past. Purple team consulted, one time neb treatment ordered for now (1808) -- if beneficial, will make PRN.
[2016-09-12] VITALS (11 sets, daily range): BP systolic 82–98; BP diastolic 49–63; PULSE 70–88; RESP 16–20; O2SAT 91–97
[2016-09-12 03:38] LABS: INR 2.28 ratio
[2016-09-12 03:50] LABS: Unsaturated Iron Binding 281.4 ug/dL
[2016-09-12] MEDS ORDERED: Potassium Chloride 20 mEq SR Tab(K 3 - 3.7 & Cr 2.1 - 2.9) PO ONE (05:35)
--- NOTE | 2016-09-12 05:46 | NUR ---
Labs / Activity MD notified of low K level from day shift. Replacement protocol ordered. PO dose given, patient remains low and another PO dose is ordered. Continue to monitor. Patient 1 person assist with exiting and entering the bed, able to walk to the bathroom unassisted. Patient given neb treatment. SpO2 89-92% on RA while awake. 2L NC is added. patient denies shortness of breath at rest. Patient able to walk to the bathroom without difficulty but becomes short of breath when she returns back to bed.
[2016-09-12] MEDS: Pantoprazole 40 mg ER24 Tablet PO SCH (06:20)
[2016-09-12] MEDS ORDERED: Potassium Chloride 20 mEq SR Tablet PO ONE (09:10)
[2016-09-12] MEDS ORDERED: Albuterol-Ipratropium 3 mL Inhalation Solution NEB PRN (09:15)
--- NOTE | 2016-09-12 09:15 | NUR ---
[facility] Signed
--- NOTE | 2016-09-12 09:21 | PCM.PNMED ---
Subjective Date of Service Sep 12, 2016 Subjective Overnight: no acute event. Today, patient states to feel well with no complaint. She admits that her SOB has improved and has no symptoms at rest. She is saturating at 93% on room air currently. However, she becomes SOB with exertion such as walking to the bathroom. She denies any CP, palpitations, dizziness, headache, fever, or chills. Exam Vital Signs Vital Sign - Last Date Time Temp Pulse Resp B/P Pulse Ox O2 Delivery O2 Flow Rate FiO2 09/12/16 05:12 78 09/12/16 03:22 36.7 20 98/63 93 Nasal Cannula 2.00 09/10/16 13:36 28 Intake and Output 09/11/16 09/11/16 09/12/16 Cumulative From/Thru 15:00 23:00 07:00 09/10/16 10:23 - 09/12/16 06:39 Intake Total 1040 ml 700 ml 2180 ml Output Total 350 ml 1750 ml Balance 1040 ml 350 ml 430 ml Intake Oral 1040 ml 700 ml 2180 ml Output Urine Total 350 ml 1750 ml # Voids 5 2 10 Exam General: Awake, Alert, Cooperative, in no acute distress with NC HEENT: Atraumatic, Normocephalic, EOMI, DEVONTE. Dry mucosal membrane. Neck: Atraumatic, Full range of motion, JVD noted. Respiratory: mild bibasilar rales (improved), no wheezes noted, normal respiratory effort, no increased work of breathing. Cardio: regular rate and rhythm, systolic murmur noted. Abdomen: Soft, nontender, nondistended, normoactive bowel sounds. Extremities: Vascular intact, Neuro intact, trace edema in bilateral lower extremities up to the mid tibia. Skin: Warm, Dry, No cyanosis. Neurologic: Alert, Oriented, Nonfocal. Psychiatric: Mood/affect normal, Cooperative. IVs and Medications Medications Reviewed: Medications were reviewed in detail Lab and Diagnostics Result Diagram: 09/11/16 0255 09/12/16 0300 X-Rays, CTs and MRIs PROCEDURE: X-RAY CHEST ONE VIEW, PORTABLE IMPRESSION: Improved pleural effusions and bibasilar atelectasis/scarring. Dictated by: Naveen Meza M.D. on 09/10/2016 at 11:26 Approved by: Naveen Meza M.D. on 09/10/2016 at 11:27 12-lead ECG Atrial ventricular dual paced complexes with a rate of 71. Cardiac Echo Impressions Interpretation Summary for Echo on 07/14/16 The left ventricle is normal in size. Left ventricular systolic function is normal without focal wall motion abnormalities. The ejection fraction is estimated to be 55-60%. Diastolic function could not be accurately assessed due to confounding valvular disease. The right ventricle is normal in size, thickness and function. There is a pacemaker lead in the right ventricle. The right ventricular systolic pressure is estimated at 43 mmHg assuming a right atrial pressure of 3 mm Hg. Compared to the prior echo exam, there has been no change in the severity of pulmonary hypertension. The left atrium is moderately dilated. Right atrial size is normal. There is moderate mitral annular calcification. There is moderate to severe mitral regurgitation. Compared to the prior echo study, there has been an increase in the severity of mitral regurgitation. There is no other significant valvular heart disease. The aortic root is normal size. Assessment & Plan 81-year-old lady with past medical history of diastolic CHF, CKD, HLD, Paroxysmal atrial fibrillation s/p pacemaker, and mitral regurgitation with recent ablation for medication refractory PAF came to the ED due to worsening dyspnea and weight gain. # Acute on chronic systolic CHF, poa, active and improving -Worsening dyspnea and 8-pound weight gain likely due to CHF exacerbation. baseline EF 45-55%. Echocardiogram ordered to rule out pericardial effusion -CHF exacerbation precipitated by unclear etiology. Only recent medication change is increased dose of amiodarone. Denies change in diet, but possible increased sodium intake. Patient is compliant with meds . -Patient takes Bumex 1mg daily, which will be switched to Torsemide 20mg PO daily. Appreciate cardiology's and nephrology's inputs. Closely monitor her BP and renal function. -Daily weight, intake and output monitoring -O2 via NC -BPN >66623. -Last Echo in July 2016 showed EF of 55-60% as above. -Continue home atenolol, spironolactone. -telemetry -Regular credit clerk is Dr. Garsia. # Acute on chronic kidney disease, POA, active and improving. -Suspect some GILLIAN on CKD based on low urine output even if creatinine is not significantly elevated from baseline . Will follow response to diuresis. -Appreciate Dr. Macias's recommendation. Continue HCTZ per his recommendations. -Avoid nephrotoxic drugs. # Chronic dry cough, stable. - Patient reports to have chronic dry cough since she started the Amiodarone in May 2016. - Unclear etiology. Will continue with duoneb PRN. - DDx: postnasal drip, GERD, medication side effects, asthma - Follow up with PCP as outpatient. # Iron deficiency anemia, chronic. - Iron IV ordered by Dr. Macias. - Will continue oral iron with Vitamin C at discharge. - Patient requests to have iron gluconate, not sulfate. 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 - Follow up with Dr. Garsia as outpatient. # Hyperlipidemia, chronic. POA and stable - Resume statin #GERD, chronic. - Resume Protonix # Gout, chronic. - Elevated uric acid level at 9.5 - Resume home Allopurinol Patient admitted under inpatient status with expected length of stay > 2 midnights for severity of present symptoms, complexities of treatment plan and risk for adverse events. Discussed code status: she is FULL CODE. Pain Evaluation: Adequate Pain Control VTE Mechanical Devices: Intermittant Pneumatic CD Resuscitation Status: CPR: Attempt Resuscitation Attending Statement Patient seen and examined with house staff. Agree with all attached documentation. Shayla Vazquez DO Sep 12, 2016 07:14 Sherwin Crawford MD Sep 12, 2016 18:23
[2016-09-12] MEDS: Sodium Chloride LOK Flush 10 mL Syringe IVFLUSH SCH ×2 (09:24→16:31)
--- NOTE | 2016-09-12 10:19 | PCM.PHAPRO ---
Progress Date of Service: Sep 12, 2016 Warfarin dosing Date Sep 11-Sep 12-Sep INR 2.15 2.19 2.28 INR change 0.04 0.09 Warf Dose 2.5MG 2.5MG 2.5MG Ender Martini Sep 12, 2016 10:19
[2016-09-12] MEDS ORDERED: Darbepoetin Alfa 60 mCg/0.3 mL Inj SUBQ ONE (11:20)
[2016-09-12] MEDS ORDERED: Ferric Sod Gluc Complex Inj 125 MG in 0.9% Sodium Chloride 100 ML IV ONE (11:20)
--- NOTE | 2016-09-12 11:23 | PCM.PNNEPH ---
Subjective Date of Service Sep 12, 2016 Subjective Patient is continuing to improve however she did require some supplemental oxygen last night. This morning she is breathing better and denies any headache , chest pain, nausea or vomiting or resting dyspnea. Her intake and output for last 24 hours. 1480 and 1150 out. Her systolic blood pressures have ranged in the 90s. This morning her follow-up potassium was 3.4 and transferrin saturation was 7%. Exam Vital Signs Vital Sign - Last Date Time Temp Pulse Resp B/P Pulse Ox O2 Delivery O2 Flow Rate FiO2 09/12/16 08:17 70 09/12/16 07:31 36.6 18 89/54 93 Room Air 09/12/16 03:22 2.00 09/10/16 13:36 28 Intake and Output 09/11/16 09/11/16 09/12/16 Cumulative From/Thru 15:00 23:00 07:00 09/10/16 10:23 - 09/12/16 06:39 Intake Total 1040 ml 700 ml 2180 ml Output Total 350 ml 1750 ml Balance 1040 ml 350 ml 430 ml Intake Oral 1040 ml 700 ml 2180 ml Output Urine Total 350 ml 1750 ml # Voids 5 2 10 Exam HEENT examination is remarkable for pale sclera. Neck is supple without adenopathy, thyromegaly, or jugular venous distention. Lungs were clear though somewhat diminished. Heart was regular with a soft systolic murmur. Abdomen soft without any tenderness rebound guarding masses or hepatosplenomegaly. Extremities show any evidence of any clubbing, cyanosis, or edema. Lab and Diagnostics Result Diagram: 09/11/16 0255 09/12/16 0920 X-Rays, CTs and MRIs PROCEDURE: X-RAY CHEST ONE VIEW, PORTABLE IMPRESSION: Improved pleural effusions and bibasilar atelectasis/scarring. Dictated by: Naveen Meza M.D. on 09/10/2016 at 11:26 Approved by: Naveen Meza M.D. on 09/10/2016 at 11:27 12-lead ECG Atrial ventricular dual paced complexes with a rate of 71. Cardiac Echo Impressions Interpretation Summary for Echo on 07/14/16 The left ventricle is normal in size. Left ventricular systolic function is normal without focal wall motion abnormalities. The ejection fraction is estimated to be 55-60%. Diastolic function could not be accurately assessed due to confounding valvular disease. The right ventricle is normal in size, thickness and function. There is a pacemaker lead in the right ventricle. The right ventricular systolic pressure is estimated at 43 mmHg assuming a right atrial pressure of 3 mm Hg. Compared to the prior echo exam, there has been no change in the severity of pulmonary hypertension. The left atrium is moderately dilated. Right atrial size is normal. There is moderate mitral annular calcification. There is moderate to severe mitral regurgitation. Compared to the prior echo study, there has been an increase in the severity of mitral regurgitation. There is no other significant valvular heart disease. The aortic root is normal size. 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 Conrad Macias DO Sep 12, 2016 11:23
--- NOTE | 2016-09-12 14:39 | NUR ---
Social Work: Multidisciplinary Rounds Pt discussed in am rounds. Pt is not medically stable for discharge at this time. Sw status remains unchanged; anticipate pt to discharge home; pt ambulating I to bathroom. COMMUNITY COORDINATOR to continue to follow JEAN MARIE Gifford
[2016-09-13] MEDS: Sodium Chloride LOK Flush 10 mL Syringe IVFLUSH SCH ×2 (00:56→13:47)
[2016-09-13 03:35] VITALS: BP 93/59; PULSE 82; RESP 20; O2SAT 96
[2016-09-13 04:46] LABS: INR 2.45 ratio
[2016-09-13 04:52] LABS: Magnesium 2.1 mg/dL (1.6-2.6)
[2016-09-13] MEDS ORDERED: Potassium Chloride 20 mEq SR Tab(K 3 - 3.7 & Cr 2.1 - 2.9) PO ONE (06:00)
[2016-09-13] MEDS: Pantoprazole 40 mg ER24 Tablet PO SCH (06:17)
--- NOTE | 2016-09-13 06:34 | NUR ---
Hypotension / O2 / Tele Pt hypotensive tonight with BPs 88/55, 94/61, and 93/59. Pt remains asymptomatic, denies dizziness or lightheadedness. SpO2 sats at HS on RA only 91%, Pt placed on O2 at 2L NC and SpO2 sats improved to 94-96% while sleeping. No c/o chest pain, Tele A-V Paced 70-80s. When Pt first got up to go to the bathroom, her HR increased into 110-120s, then returned to baseline for the rest of the night, while sleeping or when she got up.
[2016-09-13] MEDS ORDERED: Potassium Chloride 20 mEq SR Tablet PO ONE ×2 (06:45→13:30)
[2016-09-13 08:15] VITALS: PULSE 70; RESP 18; O2SAT 98
[2016-09-13 09:48] VITALS: BP 86/47; PULSE 69; RESP 20; O2SAT 95
[2016-09-13 10:03] VITALS: PULSE 70
[2016-09-13] MEDS ORDERED: TORS20TA PO (11:44)
[2016-09-13 12:02] VITALS: BP 91/52; PULSE 76; RESP 16; O2SAT 92
[2016-09-13] MEDS ORDERED: POTA20TA16 PO (12:04)
[2016-09-13] MEDS ORDERED: IRON1TAB90 PO (12:04)
--- NOTE | 2016-09-13 12:07 | PCM.DIMED ---
Shayla Vazquez DO 09/13/16 1152: Discharge Instructions Date of Service Sep 13, 2016 Dates of Hospitalization Sep 10, 2016 at 12:53 Discharge Diagnosis Discharge Diagnosis # Acute on chronic systolic CHF, poa, active and improving # Acute on chronic kidney disease, POA, active and improving. # Chronic dry cough, stable. # Iron deficiency anemia, chronic. 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 POA and stable #GERD, chronic. # Gout, chronic. Diet Discharge Diet: Heart Healthy Activity Discharge Activity: Limited until seen by PCP Call your provider Call your provider for: Fever or Chills, Shortness of breath, Chest pain, Weakness (unilateral) Patient Instructions Patient Instructions - You were in the hospital for congestive heart failure exacerbation that led to the shortness of breath. - Your symptoms have improved significantly on the new water pill called Torsemide. Please stop taking the Bumex and change it into Torsemide once daily. - Because your blood pressure has been low in the hospital, please wait for a couple days before you start taking the Torsemide. - To prevent you from having symptoms from low blood pressure, please take the Spironolactone at bed time. - You should follow up with your primary care doctor in 1 week and have blood draw (BMP) at that visit. - Continue with the current Warfarin dose and have your INR check on . Follow up with [facility]. - Follow up with Dr. Macias (kidney doctor) as scheduled on 09/23/16. - Go to the ER if you develop worsening shortness of breath, inability to urinate, nausea, vomiting, or headache. - Please check your blood pressure daily. - Take the Potassium and Iron supplement daily. Follow-up Provider: Sha Melara MD Follow-up with PCP in: 1 week Provider: Conrad Macias DO Follow-up in: 2 weeks Sherwin Crawford MD 09/13/16 1251: Discharge Instructions Attending's Statement The patient was seen and examined with staff. Agree with all attached documentation. Shayla Vazquez DO Sep 13, 2016 11:52 Sherwin Crawford MD Sep 13, 2016 12:51
--- NOTE | 2016-09-13 13:04 | NUR ---
Social Work Note: Multidisciplinary Rounds/Discharge Data& Assessment: Pt was discussed in AM rounds this morning. Per MD pt is medically ready to discharge. Qian Harden is a 81 year old female admitted on 09/10/2016 for CHF and renal failure. Per pt is medically improved and ready to discharge. Pt is independent at baseline and has remained independent during this hospitalization. SW met with pt and pt at bedside to confirm discharge plan and assess for any unmet needs. Pt and pt confirm that pt is at her baseline and she has been able to ambulate independently outside of bed during this hospitalization. Pt and pt deny any other needs. No other discharge needs or MD orders identified. Plan: Per pt is medically ready to discharge home via POV. Pt and pt deny any other needs. No other discharge needs or MD orders identified. JEAN MARIE Estrada
--- NOTE | 2016-09-13 14:52 | PCM.DC.MED ---
Discharge Summary Date of Service Sep 13, 2016 Dates of Hospitalization Date of Hospital Admission Sep 10, 2016 at 12:53 Date of Discharge: Sep 13, 2016 Providers: Admitting Physician: Sherwin Crawford MD Primary Care Physician: Sha Melara MD Attending Physician: Sherwni Crawford MD Diagnosis at Time of Discharge Diagnosis at Time of Discharge # Acute on chronic systolic CHF, poa, active and improving # Acute on chronic kidney disease, POA, active and improving. # Chronic dry cough, stable. # Iron deficiency anemia, chronic. 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 POA and stable #GERD, chronic. # Gout, chronic. Consultations General: Awake, Alert, Pale, Cooperative, in no acute distress with NC HEENT: Atraumatic, Normocephalic, EOMI, DEVONTE. Dry mucosal membrane. Neck: Atraumatic, Full range of motion, JVD noted. Respiratory: mild bibasilar rales (improved), no wheezes noted, normal respiratory effort, no increased work of breathing. Cardio: regular rate and rhythm, systolic murmur noted. Abdomen: Soft, nontender, nondistended, normoactive bowel sounds. Extremities: Vascular intact, Neuro intact, trace edema in bilateral lower extremities up to the mid tibia. Skin: Warm, Dry, No cyanosis. Neurologic: Alert, Oriented, Nonfocal. Psychiatric: Mood/affect normal, Cooperative. Procedures XRay, CTs & MRIs PROCEDURE: X-RAY CHEST ONE VIEW, PORTABLE IMPRESSION: Improved pleural effusions and bibasilar atelectasis/scarring. Dictated by: Naveen Meza M.D. on 09/10/2016 at 11:26 Approved by: Naveen Meza M.D. on 09/10/2016 at 11:27 ECG 12 Lead Atrial ventricular dual paced complexes with a rate of 71. Cardiac Echo Impression Interpretation Summary for Echo on 07/14/16 The left ventricle is normal in size. Left ventricular systolic function is normal without focal wall motion abnormalities. The ejection fraction is estimated to be 55-60%. Diastolic function could not be accurately assessed due to confounding valvular disease. The right ventricle is normal in size, thickness and function. There is a pacemaker lead in the right ventricle. The right ventricular systolic pressure is estimated at 43 mmHg assuming a right atrial pressure of 3 mm Hg. Compared to the prior echo exam, there has been no change in the severity of pulmonary hypertension. The left atrium is moderately dilated. Right atrial size is normal. There is moderate mitral annular calcification. There is moderate to severe mitral regurgitation. Compared to the prior echo study, there has been an increase in the severity of mitral regurgitation. There is no other significant valvular heart disease. The aortic root is normal size. Brief History Ms. Qian Harden is an 81 year old female with a history of diastolic CHF, CKD, HLD, Paroxysmal atrial fibrillation on anticoagulation, and mitral regurgitation who presents to the ED complaining of worsening SOB onset 2 weeks ago. She states that she was in [facility] for the holiday and got back here on September 07. Since then her symptoms have progressively worsened. Patient complains of worsening dyspnea, worse with exertion, decreased urination , leg swelling, and weight gain. Her daughters report that she has gained 6-8 lbs in less than a week. Other associated symptoms include orthopnea and paroxysmal noctural dyspnea. She denies any other symptoms, including CP, palpitations, dizziness, headache, nausea, vomiting, worsening cough, fever, or chills. She admits to a chronic dry cough that has not been getting worse. She does not use O2 or Bipap at home. Her last dose of Bumex 2mg was this morning, and she reports that she took an extra dosage to help alleviate her symptoms, but had no effect. Patient denies any recent change in her medication besides a possible increase in dose of the Amiodarone. Patient had similar symptoms like this in May 2016 when she had an ablation and was started on Amiodarone at that time. She had a pacemaker implantation 3 years ago. Per the patient's family, Dr. Garsia plans to do a mitral valve clip in the future. In the ED, patient twas found to have BP of 101/68, HR 79, RR 30, Pulse Ox 99 on Bipap, and Temp 36.5. CXR showed improved bilateral pleural effusions and bibasilar atelectasis/scarring. She received a dose of Bumex 0.5mg and put on BiPAP. Her symptoms improved at the time of admission. Labs significant for worsening renal function BUN 82, Cr 2[place]84 [place] [address]. Therapeutic INR 2.15. Hospital Course 81-year-old lady with past medical history of diastolic CHF, CKD, HLD, Paroxysmal atrial fibrillation s/p pacemaker, and mitral regurgitation with recent ablation for medication refractory PAF came to the ED due to worsening dyspnea and weight gain. # Acute on chronic systolic CHF, poa, active and improving -Worsening dyspnea and 8-pound weight gain likely due to CHF exacerbation. baseline EF 45-55%. Echocardiogram ordered to rule out pericardial effusion -CHF exacerbation precipitated by unclear etiology. Only recent medication change is increased dose of amiodarone. Denies change in diet, but possible increased sodium intake. Patient is compliant with meds . -Patient takes Bumex 1mg daily, which will be switched to Torsemide 20mg PO daily. Appreciate cardiology's and nephrology's inputs. Closely monitor her BP and renal function. Patient will hold her Torsemide for a couple days before resuming it. She will need to monitor her BP daily. -Potassium 20mEq PO daily. BMP in 1 week. -Daily weight, intake and output monitoring -O2 via NC -BPN >[id number]. -Last Echo in July 2016 showed EF of 55-60% as above. -Continue home atenolol and spironolactone. -telemetry -Regular visual merchandising associate is Dr. Garsia. # Acute on chronic kidney disease, POA, active and improving. -Suspect some GILLIAN on CKD based on low urine output even if creatinine is not significantly elevated from baseline . Will follow response to diuresis. -Appreciate Dr. Macias's recommendation. D/C HCTZ due to low blood pressure. -Avoid nephrotoxic drugs like NSAIDs. Patient stated she only takes Tylenol or Oxycodone for pain. # Chronic dry cough, stable. - Patient reports to have chronic dry cough since she started the Amiodarone in May 2016. - Unclear etiology. Will continue with duoneb PRN. - DDx: postnasal drip, GERD, medication side effects, asthma - Follow up with PCP as outpatient. # Iron deficiency anemia, chronic. - Iron IV ordered by Dr. Macias. - Will continue oral iron with Vitamin C at discharge. - Discharge with oral Iron. # Paroxysmal atrial fibrillation s/p pacemaker, POA and stable - dual- paced now, HR 71 - Continue home atenolol and amiodarone - Continue anticoagulation with warfarin. INR therapeutic 2.45 on 7/10/17. Follow up with [facility]. 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 - Follow up with Dr. Garsia as outpatient. # Hyperlipidemia, chronic. POA and stable - Resume statin #GERD, chronic. - Resume Protonix # Gout, chronic. - Elevated uric acid level at 9.5 - Resume home Allopurinol Patient admitted under inpatient status with expected length of stay > 2 midnights for severity of present symptoms, complexities of treatment plan and risk for adverse events. Discussed code status: she is FULL CODE. Exam Vital Signs (Last) Date Time Temp Pulse Resp B/P Pulse Ox O2 Delivery O2 Flow Rate FiO2 09/13/16 12:02 36.8 76 16 91/52 92 Room Air 09/13/16 08:15 2.00 09/10/16 13:36 28 Exam General: Awake, Alert, Cooperative, in no acute distress with NC HEENT: Atraumatic, Normocephalic, EOMI, DEVONTE. Dry mucosal membrane. Neck: Atraumatic, Full range of motion, JVD noted. Respiratory: mild bibasilar rales (improved), no wheezes noted, normal respiratory effort, no increased work of breathing. Cardio: regular rate and rhythm, systolic murmur noted. Abdomen: Soft, nontender, nondistended, normoactive bowel sounds. Extremities: Vascular intact, Neuro intact, trace edema in bilateral lower extremities up to the mid tibia. Skin: Warm, Dry, No cyanosis. Neurologic: Alert, Oriented, Nonfocal. Psychiatric: Mood/affect normal, Cooperative. Test 09/10/16 10:40 09/10/16 16:58 09/11/16 02:55 09/12/16 03:00 Uric Acid 9.5mg/dL (2.6-7.2) Troponin T 0.010ug/L (0.0-0.011) Pro-B-Type Natriuretic Peptide 69381ak/mL (0-738) Urine Color Yellow (YELLOW) Urine Appearance Clear (CLEAR,HAZY) Urine pH 5.0 (5.0-8.0) Urine Specific [place] 1.010 (1.003-1.035) Urine Protein Negativemg/dL (NEG,TRACE) Urine Glucose (UA) Negativemg/dL (NEGATIVE) Urine Ketones Negativemg/dL (NEGATIVE) Urine Occult Blood Negative (NEGATIVE) Urine Nitrite Negative (NEGATIVE) Urine Bilirubin Negative (NEGATIVE) Urine Urobilinogen Normalmg/dL (NORMAL) Urine Leukocyte Esterase Negative (NEGATIVE) Urine RBC 0-2/hpf (0-2) Urine WBC 0-5/hpf (0-5) Urine Epithelial Cells Few/hpf (NONE-MOD) Urine Crystals None seen (NONE SEEN) Urine Bacteria Few/hpf (NONE-FEW) Urine Hyaline Casts Occasional/lpf (NONE) Urine Granular Casts None seen (NONE SEEN) Urine Waxy Casts None seen (NONE SEEN) Urine Red Blood Cell Casts None seen (NONE SEEN) Urine White Blood Cell Casts None seen (NONE SEEN) Urine Mucus None seen (None Seen) Urine Trichomonas None seen (NONE SEEN) Urine Yeast None (NONE SEEN) Urinalysis Comment None Urine Culture Reflexed Not indicated White Blood Count 6.2th/mm3 (3.8-10.1) Red Blood Count 3.12mil/mm3 (3.90-5.20) Hemoglobin 8.8g/dL (12.0-15.6) Hematocrit 28.1% (35.0-46.0) Mean Corpuscular Volume 90.1fL (81-100) Mean Corpuscular Hemoglobin 28.2pg (27.0-35.0) Mean Corpuscular Hemoglobin Concent 31.3% (32.0-37.0) Red Cell Distribution Width 15.4% (12.3-15.4) Platelet Count 202bil/L (150-400) Neutrophils (%) (Auto) 69.6% (40-74) Lymphocytes (%) (Auto) 16.0% (14-46) Monocytes (%) (Auto) 13.3% (4-12) Eosinophils (%) (Auto) 0.3% (0-5) Basophils (%) (Auto) 0.6% (0-3) Total Bilirubin 0.7mg/dL (0.0-1.2) Aspartate Amino Transf (AST/SGOT) 46U/L (0-50) Alanine Aminotransferase (ALT/SGPT) 54U/L (0-32) Alkaline Phosphatase 66U/L (25-165) Total Protein 6.2g/dL (6.4-8.4) Albumin 3.4g/dL (3.4-5.0) Iron Level 21ug/dL (35-150) Total Iron Binding Capacity 302ug/dL (250-450) Percent Iron Saturation 7%sat (15-50) Unsaturated Iron Binding 281.4ug/dL Test 09/13/16 03:45 09/13/16 10:43 Prothrombin Time 26.7sec (8.1-12.5) Prothromb Time International Ratio 2.45ratio Sodium Level 136mEq/L (134-144) Chloride Level 95mEq/L (97-108) Carbon Dioxide Level 23mmol/L (18-29) Blood Urea Nitrogen 68mg/dL (8-27) Creatinine 2.37mg/dL (0.57-1.00) Estimat Glomerular Filtration Rate 28mL/min (>59) Glucose Level 117mg/dL (60-99) Calcium Level 8.4mg/dL (8.5-10.1) Magnesium Level 2.1mg/dL (1.6-2.6) Potassium Level 3.2mEq/L (3.5-5.2) Discharge Medications Discharge Medications Allopurinol (Allopurinol) 100 Mg Tablet 100 MG PO DAILY (Reported) Amiodarone (Amiodarone) 400 Mg Tablet 400 MG PO DAILY (Reported) Atenolol (Atenolol) 50 Mg Tablet 50 MG PO DAILY (Reported) Biotin (Biotin) 1,000 Mcg Tab.chew 2,500 MCG PO DAILY (Reported) Calcium Carbonate (Calcium) 600 Mg Tablet 600 MG PO BID (Reported) Cholecalciferol (Vitamin D3) (Vitamin D3) 2,000 Unit Capsule 2,000 UNIT PO DAILY (Reported) Iron,Carbonyl/Ascorbic Acid (Iron 100-Vitamin C Tablet) 1 Each Tablet 1 EACH PO DAILY Prescribed by: DA ALCARAZ DO Pantoprazole (Pantoprazole ) 40 Mg Tablet.dr 40 MG PO 0630 Prescribed by: CHIOMA MARTÍNEZ Potassium Chloride (Potassium Chloride) 20 Meq Tab.er.prt 20 MEQ PO DAILY TAKE WITH FOOD Prescribed by: DA ALCARAZ DO Rosuvastatin Calcium (Crestor) 10 Mg Tablet 10 MG PO HS (Reported) Spironolactone (Spironolactone) 25 Mg Tablet 12.5 MG PO DAILY (Reported) Torsemide (Demadex) 20 Mg Tablet 20 MG PO DAILY Prescribed by: DA ALCARAZ, As needed Acetaminophen/Codeine 300-30mg (Tylenol/Codeine #3) 1 Each Tablet 1 TABLET PO Q4H PRN PRN Pain (Reported) Albuterol Neb Soln (Albuterol Neb Soln) 2.5 Mg/3 Ml Vial.neb 2.5 MG INHALATION Q4H PRN PRN For Shortness of Breath (Reported) Miscellaneous Medications Cyanocobalamin (Vitamin B-12) (Vitamin B-12) 1,000 Mcg Tablet 2,500 MCG PO ( Reported) Warfarin Sodium (Jantoven) 2.5 Mg Tablet 2.5 MG PO (Reported) Followup Plan Disposition: Home Discharge Diet: Heart Healthy Discharge Activity: Limited until seen by PCP Patient Instructions - You were in the hospital for congestive heart failure exacerbation that led to the shortness of breath. - Your symptoms have improved significantly on the new water pill called Torsemide. Please stop taking the Bumex and change it into Torsemide once daily. - Because your blood pressure has been low in the hospital, please wait for a couple days before you start taking the Torsemide. - To prevent you from having symptoms from low blood pressure, please take the Spironolactone at bed time. - You should follow up with your primary care doctor in 1 week and have blood draw (BMP) at that visit. - Continue with the current Warfarin dose and have your INR check on . Follow up with [facility]. - Follow up with Dr. Macias (kidney doctor) as scheduled on 09/23/16. - Go to the ER if you develop worsening shortness of breath, inability to urinate, nausea, vomiting, or headache. - Please check your blood pressure daily. - Take the Potassium and Iron supplement daily. Follow-up Provider: Sha Melara MD Follow-up with PCP in: 1 week Provider: Conrad Macias DO Follow-up in: 2 weeks Time spent 60 minutes Attending Statement Patient seen and examined with house staff. Agree with all attached documentation. copies to: Sha Melara MD, Ngochanh H DO Sep 13, 2016 14:52 Sherwin Crawford MD Sep 13, 2016 17:44
--- NOTE | 2016-09-13 16:00 | NUR ---
O2/BP/Discharge Pt transitioned to RA this am, denied increase in SOB with removal of the O2, SPO2 sats in the 94-96% range on RA, updated. Pt's BP 86/47 this am prior to medication administration, Pt asymptomatic, made aware who instructed to hold all am medications at that time. Pt's subsequent BP 91/52, MD updated who instructed to give meka torsemide dose prior to discharge and continue with discharge. Pt also given sodium bicarb and allopurinol. Pt discharged to home with family at ~1500 today. Pt given discharge educational materials on new prescriptions, Pt verbalized that she had already received CHF booklet. Pt's IV access D/C'd and intact. Pt instructed to f/u with PCP and Dr. Macias as listed in discharge instructions, Pt verbalized that she already had appointment times/dates and would call the offices after discharge to verify. Pt verbalized understanding of all discharge instructions. All belongings accompanied Pt at time of discharge.
--- NOTE | 2016-09-13 16:13 | PCM.PNNEPH ---
Subjective Date of Service Sep 13, 2016 Subjective She continues to do well and I have discussed the case with Dr. Crawford the hospitalist. From my point of view she can be discharged today. She is scheduled to have a follow-up appointment in office in about a week and a half. She denies any chest pain or shortness of breath. I have advised the patient to stop the chlorthalidone and furosemide and in several days start torsemide 20 mg once a day. I have also asked her to keep close track of her blood pressures both in the morning and evening and bring those readings in on her next visit. Exam Vital Signs Vital Sign - Last Date Time Temp Pulse Resp B/P Pulse Ox O2 Delivery O2 Flow Rate FiO2 09/13/16 12:02 36.8 76 16 91/52 92 Room Air 09/13/16 08:15 2.00 09/10/16 13:36 28 Intake and Output 09/12/16 09/12/16 09/13/16 Cumulative From/Thru 15:00 23:00 07:00 09/10/16 10:23 - 09/13/16 06:33 Intake Total 100 ml 1040 ml 400 ml 3720 ml Output Total 300 ml 1250 ml 3300 ml Balance 100 ml 740 ml -850 ml 420 ml Intake Oral 1040 ml 400 ml 3620 ml IV Total 100 ml 100 ml Output Urine Total 300 ml 1250 ml 3300 ml # Voids 4 7 21 # Bowel Movements 1 1 Lab and Diagnostics Result Diagram: 09/11/16 0255 09/13/16 1043 X-Rays, CTs and MRIs PROCEDURE: X-RAY CHEST ONE VIEW, PORTABLE IMPRESSION: Improved pleural effusions and bibasilar atelectasis/scarring. Dictated by: Naveen Meza M.D. on 09/10/2016 at 11:26 Approved by: Naveen Meza M.D. on 09/10/2016 at 11:27 12-lead ECG Atrial ventricular dual paced complexes with a rate of 71. Cardiac Echo Impressions Interpretation Summary for Echo on 07/14/16 The left ventricle is normal in size. Left ventricular systolic function is normal without focal wall motion abnormalities. The ejection fraction is estimated to be 55-60%. Diastolic function could not be accurately assessed due to confounding valvular disease. The right ventricle is normal in size, thickness and function. There is a pacemaker lead in the right ventricle. The right ventricular systolic pressure is estimated at 43 mmHg assuming a right atrial pressure of 3 mm Hg. Compared to the prior echo exam, there has been no change in the severity of pulmonary hypertension. The left atrium is moderately dilated. Right atrial size is normal. There is moderate mitral annular calcification. There is moderate to severe mitral regurgitation. Compared to the prior echo study, there has been an increase in the severity of mitral regurgitation. There is no other significant valvular heart disease. The aortic root is normal size. Conrad Macias DO Sep 13, 2016 16:13
== END 2016-09-13 15:00 | disposition home or self-care (01) | DRG 292 ==
LOC: SED 10:21 → PCC 12:53
PROVIDERS: ADMIT Hospitalist; ATTEND Hospitalist
DX: I50.23 Acute on chronic systolic (congestive) heart failure (principal); N17.9 Acute kidney failure, unspecified; E87.2 Acidosis; N11.9 Chronic tubulo-interstitial nephritis, unspecified; I13.0 Hypertensive heart and chronic kidney disease with heart failure and stage 1 through stage 4 chronic kidney disease, or unspecified chronic kidney disease; Z79.01 Long term (current) use of anticoagulants; Z86.73 Personal history of transient ischemic attack (TIA), and cerebral infarction without residual deficits; Z95.0 Presence of cardiac pacemaker; Z87.891 Personal history of nicotine dependence; N18.9 Chronic kidney disease, unspecified; I48.0 Paroxysmal atrial fibrillation; I34.0 Nonrheumatic mitral (valve) insufficiency; I36.8 Other nonrheumatic tricuspid valve disorders; E78.5 Hyperlipidemia, unspecified; K21.9 Gastro-esophageal reflux disease without esophagitis; M10.9 Gout, unspecified; I34.2 Nonrheumatic mitral (valve) stenosis; D50.8 Other iron deficiency anemias

== ENCOUNTER 2016-09-21 15:23 | Inpatient (IN) | payer MEDICARE, OTHER ==
[~2016-09-21] VITALS: Ht 157.5 cm; Wt 62.7 kg
[2016-09-21] VITALS (7 sets, daily range): BP systolic 76–91; BP diastolic 42–67; PULSE 70–131; RESP 16–22; O2SAT 91–97
[~2016-09-21 15:23] MED LIST changes: +ALBU2.5V4 INHALATION; -AMIO200T PO; +AMIO400T4 PO; -BUME1TAB4 PO; +IRON1TAB90 PO; +POTA20TA16 PO; +TORS20TA PO; -WARF1TAB6 PO; -WARF3TAB7 PO
--- NOTE | 2016-09-21 16:00 | ED.REPORT ---
HPI-Chest Pain 40 and Over Date of Service Sep 21, 2016 ED Provider: LeonelJose Bernard DO 81 y/o female on Coumadin with a hx of A-fib, CHF, and hyperlipidemia presents to the ED complaining of shortness of breath, onset a few days ago. The pt was sent in by her PCP who was concerned that she was crashing and needed to be cardioverted. The pt does not experience dyspnea at rest. As per her family, the pt also gets short of breath when talking but the pt denies that. Associated sx include dizziness when standing up and with activity and worsening lower extremity edema. The pt also fell twice three days ago and hit her head upon falling but did not see a doctor and reports no symptoms due to the fall. Nursing Notes Stated Complaint: HEART FAILURE Chief Complaint: Chest Pain Nursing Notes Reviewed: Yes Allergies: Coded Allergies: flecainide (Verified Allergy, Severe, Nausea,Vomiting, 09/21/16) Procaine HCl (Verified Allergy, Intermediate, Nausea, 09/21/16) clopidogrel bisulfate (Verified Allergy, Intermediate, Rash,Itching,, 09/21) Scheduled Allopurinol (Allopurinol) 100 Mg Tablet 100 MG PO DAILY Biotin (Biotin) 1,000 Mcg Tab.chew 2,500 MCG PO DAILY Calcium Carbonate (Calcium) 600 Mg Tablet 600 MG PO BID Iron,Carbonyl/Ascorbic Acid (Iron 100-Vitamin C Tablet) 1 Each Tablet 1 EACH PO DAILY Pantoprazole DR (Pantoprazole DR) 40 Mg Tablet.dr 40 MG PO 0630 Potassium Chloride (Potassium Chloride) 20 Meq Tab.er.prt 20 MEQ PO DAILY TAKE WITH FOOD Rosuvastatin Calcium (Crestor) 10 Mg Tablet 10 MG PO HS Spironolactone (Spironolactone) 25 Mg Tablet 12.5 MG PO DAILY Torsemide (Demadex) 20 Mg Tablet 20 MG PO DAILY Warfarin Sodium (Warfarin Sodium) 2 Mg Tablet 2 MG PO SAT,TUE,WED Warfarin Sodium (Warfarin Sodium) 1 Mg Tablet 1.5 MG PO MON,TUE,FABIÁN,FRI Scheduled PRN Albuterol Neb Soln (Albuterol Neb Soln) 2.5 Mg/3 Ml Vial.neb 2.5 MG INHALATION Q4H PRN PRN For Shortness of Breath Miscellaneous Medications Cyanocobalamin (Vitamin B-12) (Vitamin B-12) 1,000 Mcg Tablet 2,500 MCG PO General Time Seen by MD: 15:55 Chief Complaint Shortness of breath Hx Obtained From: Patient Arrived By: Walk-in Sudden in Onset?: No Onset Occurred: 3 days ago Symptom Duration: Since onset Severity: Current: No pain currently Severity: Maximum: No pain Recent Healthcare: Recent doctor visit Past Medical History Past Medical History Notes: Cardiology: Dr. 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 Rheumatoid arthritis. Reports: Congestive heart failure, Hyperlipidemia Past Surgical History Pacemaker placement Frozen shoulder surgery. Kidney stone removal Lung biopsy, which showed rheumatoid arthritis-related changes. Reports: Appendectomy, Hysterectomy Smoking History Former Smoker Social History Alcohol Use: Denies alcohol use Other Social History: Good social support, Ambulatory Status Independent Review of Systems Respiratory: Reports: Shortness of breath Cardiovascular: Reports: Edema Neurologic: Reports: Dizziness Complete sys rev & neg: except as marked. Physical Exam Initial Vital Signs Vital Signs (First) Date Time Temp Pulse Resp B/P Pulse Ox O2 Delivery O2 Flow Rate FiO2 09/21/16 15:43 36.3 120 16 91/67 97 Room Air Initial VS: Reviewed Head / Eyes: Atraumatic, Normocephalic Neck: Supple, Non-tender, Full range of motion Extremities: Vascular intact, Neuro intact, No swelling, No tenderness Skin: Warm, Dry, No cyanosis Neurologic: Alert, Oriented, Nonfocal General/Constitutional: Awake, Alert, Cooperative Respiratory / Chest: Atraumatic, Breath sounds NL, Breath sounds = bilat, No respiratory distress, No rales, No rhonchi, No wheezing Cardiovascular: Heart sounds NL, No gallop, No murmurs, No rubs Heart Rate / Rhythm: Positive: Irregular rhythm, Tachycardia Abdomen: Atraumatic, Soft, Non-tender Interpretation & Diagnostics Lab Results Interpretation Result Diagram: 09/21/16 1707 09/21/16 1707 Test 09/21/16 17:07 09/21/16 17:13 White Blood Count 4.6th/mm3 (3.8-10.1) Red Blood Count 3.23mil/mm3 (3.90-5.20) Hemoglobin 9.0g/dL (12.0-15.6) Hematocrit 28.7% (35.0-46.0) Mean Corpuscular Volume 88.9fL (81-100) Mean Corpuscular Hemoglobin 27.9pg (27.0-35.0) Mean Corpuscular Hemoglobin Concent 31.4% (32.0-37.0) Red Cell Distribution Width 16.1% (12.3-15.4) Platelet Count 225bil/L (150-400) Neutrophils (%) (Auto) 54.6% (40-74) Lymphocytes (%) (Auto) 25.1% (14-46) Monocytes (%) (Auto) 17.9% (4-12) Eosinophils (%) (Auto) 0.7% (0-5) Basophils (%) (Auto) 1.5% (0-3) Prothrombin Time 22.5sec (8.1-12.5) Prothromb Time International Ratio 2.07ratio Sodium Level 135mEq/L (134-144) Potassium Level 4.5mEq/L (3.5-5.2) Chloride Level 99mEq/L (97-108) Carbon Dioxide Level 19mmol/L (18-29) Blood Urea Nitrogen 89mg/dL (8-27) Creatinine 3.38mg/dL (0.57-1.00) Estimat Glomerular Filtration Rate 19mL/min (>59) Glucose Level 133mg/dL (60-99) Calcium Level 8.7mg/dL (8.5-10.1) Magnesium Level 2.5mg/dL (1.6-2.6) Total Bilirubin 0.5mg/dL (0.0-1.2) Aspartate Amino Transf (AST/SGOT) 58U/L (0-50) Alanine Aminotransferase (ALT/SGPT) 67U/L (0-32) Alkaline Phosphatase 79U/L (25-165) Troponin T 0.010ug/L (0.0-0.011) Total Protein 6.7g/dL (6.4-8.4) Albumin 3.4g/dL (3.4-5.0) ECG Interpretation ECG Interpretation: Ventricular-paced rhythm. Rate 124. Significant rate increase When compared with ECG of 09/20/16, there is significant change in rhythm. Time: 16:01 Interpreted by: ED physician X-Ray Chest Interpretation Chest Xray Interpretation: IMPRESSION: Improved appearance of previously identified appearance of basilar opacity and effusions. Dictated by: Erica Ahuja M.D. on 09/21/2016 at 16:25 Approved by: Eriac Ahuja M.D. on 09/21/2016 at 16:26 View: Portable, 1 view Interpretation / Wet Read by: Interpret - Radiologist Re-Eval/Medical Decision Med Decision/Clinical Course Patient is tachycardic and hypotensive complaining of intermittent shortness of breath, she has severe mitral regurgitation as well as worsening kidney function. While at rest in bed she has no symptoms. Overall after discussion with cardiology the clinical picture appears that the patient has some underlying dehydration and has not been taking her amiodarone. Will resume amiodarone and gently hydrate the patient. Blood pressure has improved after IV fluid challenge. Source of Hx: Old records Time of Eval: 17:10 Re-Evaluation/Progress Note: Rechecked pt. She denies shortness of breath but reports fatigue. Her blood pressure is in the 70s. Discussed lab results, imaging results, diagnosis and plan to admit. Pt understands and agrees with the plan for admission. All questions addressed. Consultation #1: Referral / Consult Name: Alisa Trevizo MD Consulted With: Cardiology Call Returned at: 16:16 Note: Recommends consulting Dr. Garsia Consultation #2: Referral / Consult Name: Neymar Garsia MD Consulted With: Cardiology Call Returned at: 16:31 Security Business Analyst: Agrees with eval, Agrees with plan Note: Recommends admit, holding amiodarone, eval pacemaker and discuss pacemaker management. She should be admitted and may need to be transferred to depending on her progress. Consultation #3: Referral / Consult Name: Shannon Ferrara MD Consulted With: Hospitalist Call Returned at: 17:00 Security Business Analyst: Will see patient, Agrees with eval, Agrees with plan, Accepts admit Consultation #4: Referral / Consult Name: Ender Dasilva MD Consulted With: Cardiology Call Returned at: 17:40 Note: Discussed the case with Dr. Dasilva. He will call back. Consultation #5: Referral / Consult Name: Ender Dasilva MD Consulted With: Cardiology Call Returned at: 17:57 Note: Dr. Dasilva reviewed charting and ECG. He states she appears dehydrated and should continue IV fluids. Recommends starting amiodarone 400mg orally now, starting IVF gently and repeating amiodarone in 6 hours if still tachycardic. He also recommends starting phenylephrine if needed pressure support, however only after IVF hydration. Does not recommend cardioversion. Counseled Regarding: Diagnosis, Lab results, Need for admission Discharge & Departure Primary Impression: Shortness of breath Disposition: ADMITTED TO HOSPITAL Discharge Condition All VS Reviewed: Yes Referrals: Sha Melara MD (PCP) Crit Care Except Billable Proc Time Spent: 30-74 minutes Services Performed: Patient management by me, Time spent at bedside, Reviewing test results, Reviewing imaging, Discussing patient care, Documentation in record, Time with fam/surrogate Critical Care Notes: see mdm Scribe Attestation Portions of this note were transcribed by Doris Coello. I,, personally performed the history, physical exam and medical decision-making;I reviewed and confirmed the accuracy of the information in the transcribed note. Signed by Sherry Blackmon. 09/21/16 18:10 copies to: Sha Melara MD, Timothy S DO Sep 21, 2016 16:00 Doris Coello Sep 21, 2016 16:05
--- NOTE | 2016-09-21 16:27 | DRSVH ---
PROCEDURE: X-RAY CHEST ONE VIEW, PORTABLE ([id number]) INDICATIONS: dysrhythmia TECHNIQUE: One view of the chest was acquired. COMPARISON: [facility], CR, XR CHEST 1VW (PORTABLE), 09/10/2016, 11:03. FINDINGS: Surgical changes and devices: Pacemaker. Lungs and pleura: Near-complete interval resolution of previous right pleural effusion. No left pleur al effusion. Previous area of increased opacity demonstrates marked interval improvement. Mediastinum: Mediastinal contours appear normal. Heart size is normal. Bones and chest wall: No suspicious bony lesions. Overlying soft tissues appear unremarkable. IMPRESSION: Improved appearance of previously identified appearance of basilar opacity and effusions. Dictated by: Erica Ahuja M.D. on 09/21/2016 at 16:25 Approved by: Erica Ahuja M.D. on 09/21/2016 at 16:26
[2016-09-21] MEDS ORDERED: Ondansetron 2 mg/mL 2 mL Inj IVPUSH PRN (17:00)
[2016-09-21 17:12] LABS: BASOPHILS % (AUTO) 1.5 % (0-3); EOSINOPHILS % (AUTO) 0.7 % (0-5); MONOCYTES % (AUTO) 17.9 % (4-12); Mean Corpuscular Hemoglobin 27.9 pg (27.0-35.0); Mean Corpuscular Volume 88.9 fL (81-100); NEUTROPHILS % (AUTO) 54.6 % (40-74); Platelet Count 225 bil/L (150-400)
[2016-09-21] MEDS ORDERED: WARF1TAB6 PO (17:20)
[2016-09-21] MEDS ORDERED: WARF2TAB7 PO (17:20)
[2016-09-21 17:21] LABS: TROPONIN T 0.01 ug/L (0.0-0.011)
[2016-09-21 17:32] LABS: Magnesium 2.5 mg/dL (1.6-2.6)
[2016-09-21] MEDS ORDERED: 0.9% Sodium Chloride 500 ML IV ONE (17:35)
[2016-09-21 17:45] LABS: INR 2.07 ratio
[2016-09-21] MEDS: 0.9% Sodium Chloride 500 ML IV SCH (18:39)
[2016-09-21] MEDS ORDERED: 0.9% Sodium Chloride 250 ML IV ONE (18:50)
--- NOTE | 2016-09-21 19:10 | PCM.HPMED ---
Subjective Date of Service Sep 21, 2016 Primary Provider: Admitting Physician: Primary Care Physician: Sha Melara MD Attending Physician: Chief Complaint: Difficulty breathing History of Present Illness: 81 year old female with a history of diastolic CHF, CKD, HLD, Paroxysmal atrial fibrillation on anticoagulation, and mitral regurgitation sent from clinic by PCP due to SOB. patient was recently hospitalized with CHF, [facility]. Bumex 1mg daily was switched to Torsemide 20mg PO daily. As per , TTE from July reviewed, which showed HFpEF with mild MS and moderate MR. HCTZ was d/andrew due to low BP. pt stated that since she was discharged, she initially did well, active doing house work, then her SOB progressively got worse day by day, became weak, became dyspneic with minimal exertion at home. Pt had baseline dry cough, didn' t get worse or better. taking all of her meds including Coumadin, aldactone, torsemide until this AM. pt had similar urination, felt thirsty so drink water frequently. pt denied diarrhea, dysuria, no fever, chills. sore throat, runny nose. Patient was seen by 4days ago, for follow up after d/c, decided to stop atenolol and Amidarone for culprit drugs. Pt stopped taking amiarone on that day, but stopped atenolol 2days ago. During the weekends, pt felt much worse, lightheaded, fell twice. Each time, pt felt lightheaded with movement and tripped. denied LOC, head injury. Today, pt went to see again for further follow up, noticed labored breathing, tachypnea, sent to ED after discussion with . as per , recommended to discontinue Amiodarone, otherwise no recommendation given. ED VS 91/67, [id number], afebrile, 97% on RA. CXR showed less congested pulmonary vascular markings, labs showed severe azotemia with worsened creatinine, 89/3,38. worsened from previous labs. otherwise INR in tx range, no leukocytosis. Review of Systems: Pertinent positives as noted in history of present illness. All other systems were reviewed and are negative Allergies Coded Allergies: flecainide (Verified Allergy, Severe, Nausea,Vomiting, 09/21/16) Procaine HCl (Verified Allergy, Intermediate, Nausea, 09/21/16) clopidogrel bisulfate (Verified Allergy, Intermediate, Rash,Itching,, 09/21) Home Medications Discharge Medications Allopurinol (Allopurinol) 100 Mg Tablet 100 MG PO DAILY (Reported) Amiodarone (Amiodarone) 400 Mg Tablet 400 MG PO DAILY (Reported) Atenolol (Atenolol) 50 Mg Tablet 50 MG PO DAILY (Reported) Biotin (Biotin) 1,000 Mcg Tab.chew 2,500 MCG PO DAILY (Reported) Calcium Carbonate (Calcium) 600 Mg Tablet 600 MG PO BID (Reported) Cholecalciferol (Vitamin D3) (Vitamin D3) 2,000 Unit Capsule 2,000 UNIT PO DAILY (Reported) Iron,Carbonyl/Ascorbic Acid (Iron 100-Vitamin C Tablet) 1 Each Tablet 1 EACH PO DAILY Prescribed by: DA ALCARAZ DO Pantoprazole (Pantoprazole DR) 40 Mg Tablet.dr 40 MG PO 0630 Prescribed by: CHIOMA MARTÍNEZ Potassium Chloride (Potassium Chloride) 20 Meq Tab.er.prt 20 MEQ PO DAILY TAKE WITH FOOD Prescribed by: DA ALCARAZ DO Rosuvastatin Calcium (Crestor) 10 Mg Tablet 10 MG PO HS (Reported) Spironolactone (Spironolactone) 25 Mg Tablet 12.5 MG PO DAILY (Reported) Torsemide (Demadex) 20 Mg Tablet 20 MG PO DAILY Prescribed by: DA ALCARAZ DO As needed Acetaminophen/Codeine 300-30mg (Tylenol/Codeine #3) 1 Each Tablet 1 TABLET PO Q4H PRN PRN Pain (Reported) Albuterol Neb Soln (Albuterol Neb Soln) 2.5 Mg/3 Ml Vial.neb 2.5 MG INHALATION Q4H PRN PRN For Shortness of Breath (Reported) Miscellaneous Medications Cyanocobalamin (Vitamin B-12) (Vitamin B-12) 1,000 Mcg Tablet 2,500 MCG PO ( Reported) Warfarin Sodium (Jantoven) 2.5 Mg Tablet 2.5 MG PO (Reported) PMH AFIB Moderate MR and TR 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 Rheumatoid arthritis. Reports: Congestive heart failure, Hyperlipidemia Seen in ED 11/9/16 for CHF Negative Nuclear Stress Test 07/15/15 Echo 06/2015 EF 60-65% Cardiology: Dr. Garsia Surgical History Recent ablation of atrial fibrillation Pacemaker placement Frozen shoulder surgery. Kidney stone removal Lung biopsy, which showed rheumatoid arthritis-related changes. Reports: Appendectomy, Hysterectomy Family History Noncontributory Social History Hx Alcohol Use: Yes (glass of wine nightly) Hx Substance Use: No Hx Tobacco Use: Yes (quit in 1971) Smoking Status: Former Smoker Exam Vital Signs Vital Sign - Last Date Time Temp Pulse Resp B/P Pulse Ox O2 Delivery O2 Flow Rate FiO2 09/21/16 15:43 36.3 120 16 91/67 97 Room Air Exam NAD, comfortably laying down on the bed no JVD, dry MM, no LAD RRR, nl s1, s2 no mrg CTAB, no w,c S,ND,NT,normoactive BS+ warm, 1+ pitting edema, pulses 2/2 Assessment & Plan Acute, active presyncopal episodes with probable orthostatic hypotension, generalized weakness , tachycardia, JEFF[place], POA, likely multifactorial: intravascularly depleted with excessive diuresis, probable pulmonary toxicity from amiodarone. pt is dry on exam/labs. no GIB reported explains azotemia. Given baseline MR, afib, recent admission with ADHF, will judiciously try IVF. CXR not suggestive of PNA, possibly of viral infection, hospital acquired. However, labs are unremarkable for infection -bolus 250cc now, ordered 75cc/hr NS from ED, will continue until tomorrow - consulted, recommendation as below -respiratory pcr GILLIAN on CKD, POA, prerenal from diuresis, pt was on [id number]+ aldactone, -hold diuretics, IVF as above, trends bun, cr, avoid renal toxins, monitor i/o Afib, intermittently ventricular paced rhythms this seems new on EKG and afib RVR, POA, -monitor on telemetry, will try metoprolol ivp as needed 5mgx3 tonight, -consider resuming atenolol, pt was not on 2days. --C-m-h-e-q-q-r-o-n-e- -b-e-i-n-g- -h-e-l-d- -p-e-r- -D-r-.-I-a-w-d-r-e-t-h- -coordinate with Cardiology tomorrow. -continue Coumadin per pharmacy chronic cough, unclear etiology, cough seems at baseline, O2 requirement similar to baseline. CXR unremarkable for acute etiology. PFT in Apr ruled out amiodarone toxicity, but showed minimal obstructive lung dz. no reactivity to BD. -will get viral PCR -albuterol prn for SOB mild transaminitis, POA, new onset, could represent amiodarone toxicity. -consider abd US if trending up tomorrow, -awaits TSH as well Chronic, stable: resume home meds # Iron deficiency anemia, chronic. # Hyperlipidemia, chronic. POA and stable #GERD, chronic. # Gout, chronic. dispo:Patient will be admitted with inpatient status with expectation of inpatient therapy for more than 2 midnights diet:cardiac dvt ppx:Coumadin Full code addendum>I later noticed that spoke to , "Dr. Dasilva reviewed charting and ECG. He states she appears dehydrated and should continue IV fluids. Recommends starting amiodarone 400mg orally now, starting IVF gently and repeating amiodarone in 6 hours if still tachycardic. He also recommends starting phenylephrine if needed pressure support, however only after IVF hydration. Does not recommend cardioversion" Time spent 65min Shannon Ferrara MD Sep 21, 2016 17:05
[2016-09-21] MEDS ORDERED: MeTOProlol 1 mg/mL 5 mL Inj IVPUSH PRN (19:15)
[2016-09-21] MEDS ORDERED: _Albuterol 2.5 mg/3 mL Neb NEB PRN (19:20)
[2016-09-21] MEDS ORDERED: Albuterol 2.5 mg/3 mL Inhalation Solution NEB PRN (19:45)
--- NOTE | 2016-09-21 20:50 | PCM.CONPHA ---
Subjective Requesting Provider: Shannon Ferrara MD Difficulty breathing Reason for Pharmacy Consult: Anticoagulation Management Assessment/Plan Assessment/Plan Warfarin per pharmacy for A-Fib with goal INR=2-3 Patient takes 1.5mg MoTuThFr and 2mg SuWeSa. INR today 2.07, within goal range. Will order the usual dose of 1.5mg tonight. Floor pharmacist will follow tomorrow. Kayla Raymundo [facility] Sep 21, 2016 20:50
[2016-09-21 22:20] LABS: APPEARANCE,URINE HAZY (CLEAR,HAZY); COLOR,URINE YELLOW (YELLOW); PH,URINE 5.5 (5.0-8.0)
[2016-09-21 22:21] LABS: OCCULT BLOOD,URINE NEGATIVE (NEGATIVE); UROBILINOGEN,URINE NORMAL (NORMAL)
[2016-09-22] VITALS (8 sets, daily range): BP systolic 79–113; BP diastolic 43–74; PULSE 67–86; RESP 16–22; O2SAT 90–100
[2016-09-22] MEDS: 0.9% Sodium Chloride 500 ML IV SCH ×3 (00:40→16:00)
--- NOTE | 2016-09-22 01:15 | NUR ---
Admit To floor from ED accompanied by at 2100. Alert and oriented. Denies dizziness or pain, and ambulated into the bathroom to void with standby assist. SBP in 80's. Room air sats in mid-90's. SCD's on patient. States she has a living will and asked to bring it in. Plan of care discussed with pt and , and questions answered. Noted that heart rate increased to the 120's. When AV paced, rate is 70-90's, and when V pacing, rate is 120-130's. When rate is rapid, pt states she can feel "palpitations", although states this happens frequently at home. MD contacted and amiodarone given per orders. Rate is now in 70's.
[2016-09-22 05:08] LABS: MONOCYTES % (AUTO) 14.2 % (4-12); Mean Corpuscular Hemoglobin 28.1 pg (27.0-35.0); Mean Corpuscular Volume 90.6 fL (81-100); NEUTROPHILS % (AUTO) 65.3 % (40-74); Platelet Count 199 bil/L (150-400)
[2016-09-22 05:17] LABS: INR 1.97 ratio
[2016-09-22 05:23] LABS: Magnesium 2.2 mg/dL (1.6-2.6); Phosphorus 4.5 mg/dL (2.5-4.9)
[2016-09-22] MEDS: Pantoprazole 40 mg ER24 Tablet PO SCH (05:39)
--- NOTE | 2016-09-22 08:59 | NUR ---
Falls BROADCAST DESIGNER Pt stated she fell before admittance this time, stated she was lightheaded and dizzy, first time pt states fell and landed on side. Second time pt states she fell and hit her head. at bedside, states he found her down both times. Yellow socks on, sign posted, pt and educated about using call light for all assistance prior to getting out of bed. Care continues.
--- NOTE | 2016-09-22 10:08 | PCM.PNMED ---
Subjective Date of Service Sep 22, 2016 Subjective Overnight, patient heart rate increased up to 138 and she reports palpitations, which occurs frequently at home. No other event. Today, she reports to feel well with no shortness of breath, CP, palpitations, dizziness, or headache at rest. She admits that her symptoms usually occur even with light activities. Exam Vital Signs Vital Sign - Last Date Time Temp Pulse Resp B/P Pulse Ox O2 Delivery O2 Flow Rate FiO2 09/22/16 08:30 36.6 71 16 79/53 96 Room Air Intake and Output 09/21/16 09/21/16 09/22/16 Cumulative From/Thru 15:00 23:00 07:00 09/21/16 15:43 - 09/22/16 06:04 Intake Total 500 ml 1334 ml 1834 ml Output Total 1300 ml 1300 ml Balance 500 ml 34 ml 534 ml Intake Oral 600 ml 600 ml IV Total 500 ml 734 ml 1234 ml Output Urine Total 1300 ml 1300 ml # Bowel Movements 1 1 Exam General: Awake, Alert, Cooperative, in no acute distress at room air, mild conversational dyspnea. HEENT: Atraumatic, Normocephalic, EOMI, DEVONTE. Dry mucosal membrane. Neck: Atraumatic, Full range of motion, JVD noted. Respiratory: mild bibasilar rales, no wheezes noted, normal respiratory effort, no increased work of breathing. Cardio: regular rate and rhythm, systolic murmur noted. Abdomen: Soft, nontender, nondistended, normoactive bowel sounds. Extremities: Vascular intact, Neuro intact, trace edema in bilateral lower extremities up to the mid tibia. Skin: Warm, Dry, No cyanosis. Neurologic: Alert, Oriented, Nonfocal. Psychiatric: Mood/affect normal, Cooperative. IVs and Medications Medications Reviewed: Medications were reviewed in detail Lab and Diagnostics Result Diagram: 09/22/165 09/22/16 043 Assessment & Plan 81 year old female with a history of diastolic CHF, CKD, HLD, Paroxysmal atrial fibrillation on anticoagulation, and mitral regurgitation sent from clinic by PCP due to SOB and near-syncopal episodes. Presyncopal episodes with probable orthostatic hypotension, POA, likely multifactorial. -intravascularly depleted with excessive diuresis, probable pulmonary toxicity from amiodarone. pt is dry on exam/labs. -Given baseline MR, afib, recent admission with ADHF, judicious hydration with NS at 75mls/hr. CXR not suggestive of PNA. Labs are unremarkable for infection -D/C 75cc/hr given worsening SOB. -respiratory pcr negative. Acute on chronic diasystolic CHF, new, active. -Worsening dyspnea likely due to CHF exacerbation from fluid overload. baseline EF -55%. -Check CXR now. -Fine balance between hypotension/dehydration and fluid overload. Careful diuresis. Will give Lasix 20mg PO once right now. -Appreciate cardiology's inputs. Consider cardiac cath once renal function improves. -Daily weight, intake and output monitoring -O2 via NC -Last Echo in July 2016 showed EF of 55-60% -Hold home atenolol and spironolactone due to low BP. -telemetry -Regular bessemer regulator is Dr. Garsia. -Given complex medical and cardiac issues, Dr. Sherman spoke with Dr. Erica Solares at [facility] for transfer to [facility] on CKD, POA, likely prerenal from diuresis - pt was on [id number]+ aldactone, - hold home diuretics, IVF as above, trends bun, cr, avoid renal toxins, monitor i/o Paroxysmal Afib, intermittently ventricular paced rhythms this seems new on EKG and afib RVR, POA, stable. -monitor on telemetry, will have metoprolol ivp as needed 5mgx3. -Resume home Amiodarone. -hold home atenolol given low BP. -Cardiology consulted. Appreciate their input. -continue Coumadin per pharmacy Chronic cough, unclear etiology, cough seems at baseline, O2 requirement similar to baseline. CXR unremarkable for acute etiology. PFT in Apr ruled out amiodarone toxicity, but showed minimal obstructive lung dz. no reactivity to BD. -Viral PCR negative. -albuterol prn for SOB Mild transaminitis, POA, new onset, could represent amiodarone toxicity, currently stable. -consider abd US if trending up tomorrow, Iron deficiency anemia, chronic. - Continue home Iron. 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 - Follow up with for possible transfer. Hyperlipidemia, chronic. POA and stable - Resume statin GERD, chronic. - Resume Protonix Gout, chronic. - Resume home Allopurinol dispo:Patient will be admitted with inpatient status with expectation of inpatient therapy for more than 2 midnights Pain Evaluation: Adequate Pain Control VTE Prophylaxis: Theraputic Anticoag with Warfarin VTE Mechanical Devices: Intermittant Pneumatic CD Resuscitation Status: CPR: Attempt Resuscitation Attending Statement The patient was seen and examined with staff. Agree with all attached documentation. Shayla Vazquez DO Sep 22, 2016 10:08 Sherwin Crawford MD Sep 23, 2016 16:45
--- NOTE | 2016-09-22 11:09 | NUR ---
Case Management: SOL delivered and explained to pt. and spouse. Signed original placed in chart. Copy left at bedside. Jena Davis RN
--- NOTE | 2016-09-22 12:23 | PCM.CHPCAR ---
Consult Subjective Date of service Sep 22, 2016 Date of admit Sep 21, 2016 at 20:13 Provider Requesting Consult Primary Care Physician Primary Care Physician: Sha Melara MD Chief Complaint Hypotension and lightheadedness along with GILLIAN History of Present Illness 81 yo W h/o rheumatoid arthritis, diastolic heart failure, mitral regurgitation , and CKD admitted with hypotension, lightheadedness, and GILLIAN. Patient was hospitalized earlier this month and was actually seen by me for diastolic heart failure exacerbation at that time. She was discharged home on torsemide 20 mg daily and was doing okay until she developed lightheadedness with any activity. Her dyspnea on exertion is stable but remains a prominent issue for her. Patient states that she has been taking her medications as prescribed and is tired of being sick and being in and out of the hospital. Overnight, patient received gentle IV hydration and feels good at rest but has lightheadedness and dyspnea with exertion. Denies chest pain or syncope. Review of Systems Review of Systems Per history of present illness and otherwise unremarkable PMH Past Medical History # HFPEF (diastolic heart failure) # Moderate mitral regurgitation from calcific degeneration of the mitral valve # Mild mitral stenosis # Rheumatoid arthritis # CKD # HLD # Paroxysmal AF on anticoagulation s/p ablation # Anemia # CVA history Scheduled Allopurinol (Allopurinol) 100 Mg Tablet 100 MG PO DAILY (Reported) Biotin (Biotin) 1,000 Mcg Tab.chew 2,500 MCG PO DAILY (Reported) Calcium Carbonate (Calcium) 600 Mg Tablet 600 MG PO BID (Reported) Iron,Carbonyl/Ascorbic Acid (Iron 100-Vitamin C Tablet) 1 Each Tablet 1 EACH PO DAILY Pantoprazole DR (Pantoprazole DR) 40 Mg Tablet.dr 40 MG PO 0630 Potassium Chloride (Potassium Chloride) 20 Meq Tab.er.prt 20 MEQ PO DAILY TAKE WITH FOOD Rosuvastatin Calcium (Crestor) 10 Mg Tablet 10 MG PO HS (Reported) Spironolactone (Spironolactone) 25 Mg Tablet 12.5 MG PO DAILY (Reported) Torsemide (Demadex) 20 Mg Tablet 20 MG PO DAILY Warfarin Sodium (Warfarin Sodium) 2 Mg Tablet 2 MG PO SAT,TUE,WED (Reported) Warfarin Sodium (Warfarin Sodium) 1 Mg Tablet 1.5 MG PO MON,TUE,FABIÁN,FRI ( Reported) Scheduled PRN Albuterol Neb Soln (Albuterol Neb Soln) 2.5 Mg/3 Ml Vial.neb 2.5 MG INHALATION Q4H PRN PRN For Shortness of Breath (Reported) Miscellaneous Medications Cyanocobalamin (Vitamin B-12) (Vitamin B-12) 1,000 Mcg Tablet 2,500 MCG PO ( Reported) Discontinued Medications Acetaminophen/Codeine 300-30mg (Tylenol/Codeine #3) 1 Each Tablet 1 TABLET PO Q4H PRN PRN Pain (Reported) Amiodarone (Amiodarone) 400 Mg Tablet 400 MG PO DAILY (Reported) Atenolol (Atenolol) 50 Mg Tablet 50 MG PO DAILY (Reported) Cholecalciferol (Vitamin D3) (Vitamin D3) 2,000 Unit Capsule 2,000 UNIT PO DAILY (Reported) Warfarin Sodium (Jantoven) 2.5 Mg Tablet 2.5 MG PO (Reported) Current Inpatient Medications Current Medications Ondansetron HCl 4 to 8 mg Q4H PRN IVPUSH; Start 09/21/16 at 17:00 Sodium Chloride 500 ml @ 75 mls/hr Q6H40M IV Last administered on 09/22/16 00: 40; Admin Dose 75 MLS/HR; Start 09/21/16 at 18:00 Metoprolol Tartrate 5 mg Q5MIN PRN IVPUSH; Start 09/21/16 at 19:15 Albuterol 2.5 mg Q4H PRN NEB; Start 09/21/16 at 19:20; Status UNV Allopurinol 100 mg DAILY PO Last administered on 09/22/16 08:53; Admin Dose 100 MG; Start 09/22/16 at 08:30 Pantoprazole 40 mg 0630 PO Last administered on 09/22/16 05:39; Admin Dose 40 MG; Start 09/22/16 at 06:30 Rosuvastatin Calcium 10 mg HS PO Last administered on 09/21/16 23:32; Admin Dose 10 MG; Start 09/21/16 at 21:00 Pharmacy Consult 1 ea DAILY@17 XX; Start 09/22/16 at 17:00 Albuterol 2.5 mg Q4H PRN NEB Last administered on 09/22/16 11:36; Admin Dose 2.5 MG; Start 09/21/16 at 19:45 Allergies: Coded Allergies: flecainide (Verified Allergy, Severe, Nausea,Vomiting, 09/21/16) Procaine HCl (Verified Allergy, Intermediate, Nausea, 09/21/16) clopidogrel bisulfate (Verified Allergy, Intermediate, Rash,Itching,, 09/21) Social History Hx Alcohol Use: Yes (glass of wine nightly)Hx Substance Use: NoHx Tobacco Use : Yes (quit in 1971) Smoking Status: Former Smoker Exam Vital Signs Vital Sign - Last Date Time Temp Pulse Resp B/P Pulse Ox O2 Delivery O2 Flow Rate FiO2 09/22/16 10:54 70 09/22/16 08:30 36.6 16 79/53 96 Room Air Intake and Output 09/21/16 09/21/16 09/22/16 Cumulative From/Thru 15:00 23:00 07:00 09/21/16 15:43 - 09/22/16 06:04 Intake Total 500 ml 1334 ml 1834 ml Output Total 1300 ml 1300 ml Balance 500 ml 34 ml 534 ml Intake Oral 600 ml 600 ml IV Total 500 ml 734 ml 1234 ml Output Urine Total 1300 ml 1300 ml # Bowel Movements 1 1 Objective General appearance: No apparent distress, well-nourished, pleasant, cooperative HEET: Normocephalic atraumatic, no scleral icterus, tongue midline, mucous membranes moist Neck: supple Cardiovascular: RRR, normal S1 and normal S2, 3/6 holo-systolic murmur heard best at the LLSB, no rubs/gallops, PMI nondisplaced, no JVD, no peripheral edema Respiratory: Good aeration, CTAB Abdomen: Soft, nontender, nondistended, + bowel sounds Neuro: Alert, no facial droop, tongue midline, no gross motor deficits Psych: appropriate affect Skin: no rashes on face, neck, and lower extremities Lab and Diagnostics Result Diagram: 09/22/1643409/22/16434 12-lead ECG ECG on admission shows atrial tachycardia with ventricular pacing. Assessment & Plan Assessment 81 yo W h/o rheumatoid arthritis, diastolic heart failure, mitral regurgitation , and CKD admitted with dyspnea: # Dyspnea from diastolic heart failure (HFPEF): patient has diastolic dysfunction with preserved EF. I have reviewed her recent Echo myself and feel her mitral regurgitation is probably moderate. There is also mild mitral stenosis. Etiology of mitral valve pathology is calcification and age related changes. I suspect the diastolic dysfunction that is either related to her rheumatoid arthritis or significant coronary artery disease. I don't see evidence of constrictive pericarditis on the Echo. Her volume status is difficult to assess but I suspect dehydration given lightheadedness, hypertension, and GILLIAN. Plan as below: - Continue gentle hydration - Hold diuretics at this time - Consider cardiac cath once renal function returns to baseline - Given complex medical and cardiac issues, I spoke with Dr. Erica Solares at [facility] for transfer to # Moderate mitral regurgitation from calcific degeneration of the mitral valve: as above # Mild mitral stenosis: as above # GILLIAN on CKD: etiology from hypovolemia. BUN improved slightly with gentle IV hydration. - Continue with gentle hydration. # HLD: - Continue rosuvastatin 10mg qhs # Paroxysmal AF on anticoagulation: Patient presented with atrial tachycardia and ventricular pacing that converted to sinus rhythm with ventricular pacing using amiodarone. Patient also has CVA history and has high risk for systemic thromboembolism. Plan: - Continue amiodarone 400mg daily - Hold off therapeutic anticoagulation. # Anemia: etiology unclear. Defer to primary team for evaluation and management. # Rheumatoid arthritis: defer to primary team and outpatient VTE Mechanical Devices: Intermittant Pneumatic CD Alisa Trevizo MD Sep 22, 2016 12:23
--- NOTE | 2016-09-22 16:46 | NUR ---
BSC/SOB Pt unsteady on feet to BSC, pt SOB with exertion. Pt states she is feeling weaker upon physical activity. Family at bedside, states pt was able to walk to bathroom yesterday without SOB or weakness. Pt HOB at 40 degrees, pt states easier to breathe. Educated and encouraged pt to use call light for assistance when up to BSC. Pt and family acknowledged and understood. Care continues.
--- NOTE | 2016-09-22 19:12 | DRSVH ---
PROCEDURE: X-RAY CHEST, TWO VIEWS ([id number]) INDICATIONS: dyspnea TECHNIQUE: 2 views of the chest were acquired. COMPARISON: [facility], CR, XR CHEST 1VW (PORTABLE), 09/21/2016, 16:09. FINDINGS: Surgical changes and devices: Delayed pacemaker from the left and teletypesetter monitor leads are present. Lungs and pleura: There is worsening appearance of the right lung base with increasing pleural effusi on. Vasculature is prominent. The appearance would suggest early congestive failure superimposed on s ome COPD. Mediastinum: Mediastinal contours are normal. Heart size is normal. Bones and chest wall: No suspicious bony abnormalities. Soft tissues appear unremarkable. IMPRESSION: Changes suggesting congestive heart failure and pulmonary edema. Dictated by: Aquiles Vanegas M.D. on 09/22/2016 at 19:09 Approved by: Aquiles Vanegas M.D. on 09/22/2016 at 19:10
[2016-09-23] VITALS (19 sets, daily range): BP systolic 103–128; BP diastolic 45–79; PULSE 70–89; RESP 16–26; O2SAT 88–96
[2016-09-23 02:46] LABS: Mean Corpuscular Hemoglobin 28.1 pg (27.0-35.0); Mean Corpuscular Volume 91.7 fL (81-100)
[2016-09-23 03:16] LABS: Magnesium 2.1 mg/dL (1.6-2.6)
[2016-09-23 03:30] LABS: INR 1.95 ratio
--- NOTE | 2016-09-23 06:43 | NUR ---
GULKANA Pt GULKANA when not spoken to directly and pt not seeing speaker. Several attempts needed in order to make sure pt understood what was being said.
[2016-09-23] MEDS: Pantoprazole 40 mg ER24 Tablet PO SCH (06:52)
--- NOTE | 2016-09-23 10:04 | PCM.PNCARD ---
Subjective Date of service Sep 23, 2016 Chief Complaint Hypotension and lightheadedness along with GILLIAN History of Present Illness 81 yo W h/o rheumatoid arthritis, diastolic heart failure, mitral regurgitation , and CKD admitted with hypotension, lightheadedness, and GILLIAN. Patient was hospitalized earlier this month and was actually seen by me for diastolic heart failure exacerbation at that time. She was discharged home on torsemide 20 mg daily and was doing okay until she developed lightheadedness with any activity. Her dyspnea on exertion is stable but remains a prominent issue for her. Patient states that she has been taking her medications as prescribed and is tired of being sick and being in and out of the hospital. Overnight, patient received gentle IV hydration and feels good at rest but has lightheadedness and dyspnea with exertion. Denies chest pain or syncope. Subjective: With gentle diuresis yesterday, patient developed pulmonary edema and dyspnea on sitting. Therefore, she got a small dose of diuretic and renally dosed dopamine drip was started to better perfuse her kidneys. She diuresed well with even a low-dose of diuretic overnight and feels much better. She is now able to lay flat without any shortness of breath. PROBLEM LIST: # HFPEF (diastolic heart failure) # Moderate mitral regurgitation from calcific degeneration of the mitral valve # Mild mitral stenosis # Rheumatoid arthritis # CKD # HLD # Paroxysmal AF on anticoagulation s/p ablation # Anemia # CVA history Exam Vital Signs Vital Sign - Last Date Time Temp Pulse Resp B/P Pulse Ox O2 Delivery O2 Flow Rate FiO2 09/23/16 08:29 89 16 93 Room Air 09/23/16 03:39 36.8 122/69 09/22/16 11:30 2.00 Intake and Output 09/22/16 09/22/16 09/23/16 Cumulative From/Thru 15:00 23:00 07:00 09/21/16 15:43 - 09/23/16 06:57 Intake Total 2081 ml 527 ml 4442 ml Output Total 525 ml 1800 ml 3625 ml Balance 1556 ml -1273 ml 817 ml Intake Oral 500 ml 1100 ml IV Total 2081 ml 27 ml 3342 ml Output Urine Total 525 ml 1000 ml 2825 ml Urine/Stool Mix 800 ml 800 ml # Bowel Movements 1 2 General appearance: No apparent distress, well-nourished, pleasant, cooperative HEET: Normocephalic atraumatic, no scleral icterus, tongue midline, mucous membranes moist Neck: supple Cardiovascular: RRR, normal S1 and normal S2, 3/6 holo-systolic murmur heard best at the LLSB, no rubs/gallops, PMI nondisplaced, no JVD, trace pedal edema Respiratory: Good aeration, CTAB Abdomen: Soft, nontender, nondistended, + bowel sounds Neuro: Alert, no facial droop, tongue midline, no gross motor deficits Psych: appropriate affect Skin: no rashes on face, neck, and lower extremities Lab and Diagnostics Result Diagram: 09/23/1622909/23/16 0230 Assessment & Plan Assessment 81 yo frail woman h/o rheumatoid arthritis, diastolic heart failure, mitral regurgitation, and CKD admitted with dyspnea: # Dyspnea from diastolic heart failure (HFPEF): patient has diastolic dysfunction with preserved EF. I have reviewed her recent Echo myself and feel her mitral regurgitation is probably moderate. There is also mild mitral stenosis. Etiology of mitral valve pathology is calcification and age related changes. I suspect that her severe diastolic dysfunction is either related to her rheumatoid arthritis or significant coronary artery disease. I don't see evidence of constrictive pericarditis on the Echo deck and also present similar to diastolic dysfunction clinically. Her volume status is difficult to assess but I suspect hypervolemia overall given auto-diuresis with renally dosed dopamine gtt. Plan as below: - Continue dopamine gtt at 2.5mcg/kg/min - Consider cardiac cath either today or tomorrow - Given complex medical and cardiac issues, I spoke with Dr. Erica Solares on at [facility] for transfer to . Dr. Solares has agreed and patient will transfer when a bed becomes available. # Moderate mitral regurgitation from calcific degeneration of the mitral valve: as above # Mild mitral stenosis: as above # GILLIAN on CKD: etiology now is cardiorenal syndrome. BUN improved significantly with renally dosed dopamine gtt. - Dopamine gtt as above. # HLD: - Continue rosuvastatin 10mg qhs # Paroxysmal AF on anticoagulation: Patient presented with atrial tachycardia and ventricular pacing that converted to sinus rhythm with ventricular pacing using amiodarone. Patient also has CVA history and has high risk for systemic thromboembolism. Plan: - Continue amiodarone 400mg daily - Hold off therapeutic anticoagulation. Will give vitamin K 2mg PO X1 to reduce INR below 1.7 # Anemia: etiology unclear. Defer to primary team for evaluation and management. # Rheumatoid arthritis: defer to primary team and outpatient Problems: Pain Evaluation: Adequate Pain Control VTE Mechanical Devices: Intermittant Pneumatic CD Resuscitation Status: CPR: Attempt Resuscitation Alisa Trevizo MD Sep 23, 2016 10:04
[2016-09-23] MEDS ORDERED: Phytonadione (Adult) 10 mg/1 mL Inj PO ONE (10:05)
--- NOTE | 2016-09-23 11:12 | NUR ---
BSC/BR Pt up to BSC with SBA, unsteady on feet, pt discouraged with numerous hospital stays. Encouraged patient. Pt relaxed after listening and encouraging. Care continues
--- NOTE | 2016-09-23 11:30 | NUR ---
Social Work: Initial Assessment/Multidisciplinary Rounds D: Per EMR review, pt is an 81 year old female admitted for dyspnea. Pt is Medicare with [employer]; pt has no LTC or VA benefits. PCP is Sha Melara MD. NOK is Mark Harden, spouse, . Advanced directives requested for chart. Readmit score is high, 5/8. Pt is a readmission and was discharged home last week with no sw needs. Pt discussed in am rounds. Pt likely to have cath placement and then possible transfer to . Capacity for self-care discussed; no concerns at this time. SNAKER TRACTOR DRIVER met with the patient at bedside. Sw role explained, contact information and dc planning checklist provided. Pt lives iwth her spouse at home in [place], pt is I with ambulation, uses no DME and continues to drive. Pt has never had HH or skilled rehab. Pt and spouse both deny that any supportive services for d/c could have prevented readmission and that pt requires a procedure to prevent future hospitalizations. They are hopeful and state that they do not anticipate having any d/c needs after this admission. A: Pt who is I at baseline; lives with spouse at home. P: Evolving; Anticipate discharge home via POV if not transferred to a higher level of care. SNAKER TRACTOR DRIVER to continue to follow to assess for d/c needs. JEAN MARIE Gifford Addendum: 09/23/16 at 1146 by ALEJANDRO STEWART SS Amended: Links added.
--- NOTE | 2016-09-23 14:48 | NUR ---
IV site Pt states LFA IV site is starting to hurt. MD notified. Dopamine stopped. Waiting orders. Care continues.
[2016-09-23] MEDS ORDERED: Sodium Chloride LOK Flush 10 mL Syringe IVFLUSH PRN ×2 (15:00)
--- NOTE | 2016-09-23 15:05 | PCM.PNMED ---
Subjective Date of Service Sep 23, 2016 Subjective Her breathing is much better today. No chest pain. No nausea or abdominal pain. No diarrhea. Much less orthopnea. No overnight events noted. Exam Vital Signs Vital Sign - Last Date Time Temp Pulse Resp B/P Pulse Ox O2 Delivery O2 Flow Rate FiO2 09/23/16 12:31 37.8 72 26 103/47 92 Room Air 09/22/16 11:30 2.00 Intake and Output 09/22/16 09/22/16 09/23/16 Cumulative From/Thru 15:00 23:00 07:00 09/21/16 15:43 - 09/23/16 06:57 Intake Total 2081 ml 527 ml 4442 ml Output Total 525 ml 1800 ml 3625 ml Balance 1556 ml -1273 ml 817 ml Intake Oral 500 ml 1100 ml IV Total 2081 ml 27 ml 3342 ml Output Urine Total 525 ml 1000 ml 2825 ml Urine/Stool Mix 800 ml 800 ml # Bowel Movements 1 2 Exam Alert and oriented -3, no distress. Fluent speech Anicteric sclera. Lungs are clear with normal rate and effort Heart is regular without murmur gallop or rub Abdomen soft nontender, flat Extremities are free of edema. Skin is free of rash or lesions. IVs and Medications Medications Reviewed: Medications were reviewed in detail Lab and Diagnostics Result Diagram: 09/23/1622909/23/16229 Assessment & Plan 81 year old female with a history of diastolic CHF, CKD, HLD, Paroxysmal atrial fibrillation on anticoagulation, and mitral regurgitation sent from clinic by PCP due to SOB and near-syncopal episodes. #. Acute on chronic diasystolic CHF, new, active and improved. -Worsening dyspnea likely due to CHF exacerbation from fluid overload. baseline EF 55 %. The patient is placed on a dopamine drip at 2.5 rate overnight and has done well. She has had improved symptoms with regards to her dyspnea and an improved creatinine imply any improved perfusion to her kidney. Dr. Trevizo going to perform a coronary angiogram today to rule out obstructive coronary artery disease as an exacerbating factor in her diastolic heart failure. #. GILLIAN on CKD, POA, likely prerenal from diuresis. The patient is improved overnight with IV fluids and dopamine. - pt was on [id number]+ aldactone, -We will continue dopamine per cardiology and hold diuretics. #. Paroxysmal atrial fibrillation, resolved. Patient is on chronic anticoagulation. Follow clinically. Coumadin is going to be partially reversed today per cardiology for coronary angiogram #. 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 -Follow clinically. Iron deficiency anemia, chronic. - Continue home Iron. 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 - Follow up with for possible transfer. The question has been whether or not a mitral click would be helpful for clinical scenario. We will continue to assess with cardiology. Hyperlipidemia, chronic. POA and stable - Resume statin GERD, chronic. - Resume Protonix Gout, chronic. - Resume home Allopurinol dispo:Patient will be admitted with inpatient status with expectation of inpatient therapy for more than 2 midnights VTE Mechanical Devices: Intermittant Pneumatic CD Resuscitation Status: CPR: Attempt Resuscitation Sherwin Crawford MD Sep 23, 2016 15:05
--- NOTE | 2016-09-23 16:47 | DRSVH ---
PROCEDURE: X-RAY PICC LINE PLACEMENT BY NURSE ([id number]) INDICATIONS: access COMPARISON: None. FINDINGS: PICC was placed by the intravenous therapy team from the right side. Fluoroscopic spot fi lm demonstrates tip of PICC in the mid SVC. IMPRESSION: Tip of PICC lies within the mid SVC. Dictated by: Naveen Meza M.D. on 09/23/2016 at 16:44 Approved by: Naveen Meza M.D. on 09/23/2016 at 16:45
[2016-09-23] MEDS ORDERED: Heparin 10,000 Unit/1,000 mL NS Premix IV ONE (18:52)
[2016-09-23] MEDS ORDERED: Heparin 1,000 Units/500 mL NS Premix IV ONE (18:52)
[2016-09-23] MEDS ORDERED: Nitroglycerin 50,000 mcg/250 mL D5W Premix IV ONE (18:52)
[2016-09-23] MEDS ORDERED: Heparin 1,000 Unit/mL 10 mL Inj ONE (18:52)
[2016-09-23] MEDS ORDERED: fentaNYL-PF 50 mCg/mL 2 mL Inj ONE (19:04)
--- NOTE | 2016-09-23 20:05 | PCM.CVCATH ---
Cardiac Cath Report Date of Service Sep 23, 2016 Primary Indication Diastolic heart failure Procedure coronary angiography, left heart cath, and right heart cath Vascular Access Right radial artery very small in caliber. Therefore, Right femoral artery using 5 Fr sheath, closure with perclose Right internal jugular vein using 6Fr, closure with manual hold. Diagnostic Catheters Left main: JL4, 5Fr RCA: 3DRC after failure to engage with JR4, 5Fr Procedure Details Coronary angiography details: The patient was brought to the cardiac catheterization lab in the fasting state. Patient was laid supine on the cardiac catheterization table and the right neck and right groin were prepped and draped in the usual sterile fashion. One percent Xylocaine was infiltrated over the right internal jugular vein. Vascular access was then achieved under ultrasound guidance. Wallace was comleted. Then, one percent Xylocaine was infiltrated into the right femoral vessels. Next, a sheath was then placed in the right common femoral artery by the modified Seldinger technique. Guide wire was used to advance the catheter through the sheath and up into aortic sinuses. After coronary angiography was completed, guide wire was advanced through the catheter ahead of the tip of the catheter and the guide wire along with the catheter were pulled together out of the sheath. Medications/Fluoro Time Medications administered: 1.Fentanyl: 50 mcg IV 2. Midazolam: 0.5 mg IV 3. Heparin: 0 units IV 4. Nitroglycerin: 0 mcg IA 5. Verapamil: 0 mg IA Fluoroscopy Time: 483 mGy Fluids administered: none mls Contrast (Isovue): 16 mls Blood loss: 10 mls Findings 1) Coronary angiography: Right dominance a. Left main is angiographically normal b. LAD is normal caliber with mild luminal irregularities. c. LCx is normal caliber with mild luminal irregularities. d. RCA is normal caliber with mild luminal irregularities. 2) Left Heart catheterization: a. LV systolic pressure 134mmHg. b. LVEDP is elevated at 24 mmHg. c. No significant transaortic gradient on catheter pull-back. 3) Right femoral angiography: right common arteriotomy, just below the inferior hypogastric artery. Given it was a high stick, perclose was use for vascular closure. 4) Right heart cath: saturations obtained after patient off dopamine 2.5mcg/kg/ min for 20 minutes. * RA Mean Pressure 16 mmHg * RV Pressure 63/14 (RVEDP 16 mmHg) * PA Pressure 66/29 (mean 45 mmHg) * PCWP 24 mmHg * PA saturation: 50.9% * Arterial saturation: 89% * Hemoglobin 9.2 g/dL * Indra Cardiac Output 4.88 L/min / Indra Cardiac Index 2.92 L/min/m2 Complications There were no periprocedural complications identified. Summary 1) RHC: elevated right and left sided filling pressures with pulmonary hypertension. Normal cardiac output (after being off low dose dopamine drip for 20 minutes). 2) Coronary angiography: No significant angiographic coronary artery disease. Recommendations Will work on arranging for transfer to for significant diastolic heart failure that could be due to rheumatoid arthritis. Complicating issues are mitral regurgitation and atrial fibrillation (paroxysmal). copies to: Neymar Garsia MD; Sha Melara MD, Bhrigu R MD Sep 23, 2016 20:05
--- NOTE | 2016-09-23 20:05 | NUR ---
ARRIVED FROM CATHLAB Pt arrived on the floor via bed. Awake and oriented x3. She denies any pain. 02sat 88-89% on RA during transfer. 02 at 2L via NC applied. Right groin site cdi with very scant ooze. Pulses are palpable.
[2016-09-23] MEDS ORDERED: Furosemide 10 mg/mL 2 mL Inj IVPUSH ONE (20:30)
[2016-09-23] MEDS ORDERED: Ondansetron 2 mg/mL 2 mL Inj IVPUSH PRN (21:30)
[2016-09-23] MEDS ORDERED: Atropine 1 mg/10 mL (Code) Syringe IVPUSH PRN (21:30)
[2016-09-24] VITALS (10 sets, daily range): BP systolic 99–121; BP diastolic 48–60; PULSE 70–98; RESP 20–28; O2SAT 91–95
[2016-09-24 05:46] LABS: INR 1.55 ratio
[2016-09-24 05:55] LABS: Mean Corpuscular Hemoglobin 28.4 pg (27.0-35.0); Mean Corpuscular Volume 93.2 fL (81-100)
--- NOTE | 2016-09-24 05:59 | NUR ---
Post-cath/02sat Pt denies any pain/discomfort but c/o fatigue. No c/o leg/groin pain. Pulses are palpable. Right groin cdi with very scant blood as noted during report. No further ooze or bleeding noted. 02sat was 88-89% on RA post-op during report. Placed pt on 2L NC and up to 6L last night with 02sat in low 90s. Md made aware. Lasix 20 mg x1 given and Díaz placed. Total of 1350 cc urine output for tonight noted. 02sat in mid 90s on 2L Oxymask at this time. Telemetry SR 1 avb with pacs. Dyspnea with exertion noted. Pt tolerated getting up to bsc with 1 person assist for BM this am.
[2016-09-24] MEDS: Pantoprazole 40 mg ER24 Tablet PO SCH (06:30)
[2016-09-24] MEDS ORDERED: Heparin 25K Unit/500mL 0.45 NS 25,000 UNIT in IV Premix 1 EACH IV SCH (10:00)
--- NOTE | 2016-09-24 11:27 | PCM.PNMED ---
Subjective Date of Service Sep 24, 2016 Subjective No acute event overnight. Patient received a dose of Lasix 20mg IV and had a total of 1350cc urine output overnight. She continues to need 2L of Oxygenmask for O2 sat in the mid 90s. Today, patient states that she has mild achy pain at the right groin assess. She still has the Díaz in so she has not been moving much. She denies any CP, palpitations, SOB, dizziness, headache, nausea, or vomiting. Exam Vital Signs Vital Sign - Last Date Time Temp Pulse Resp B/P Pulse Ox O2 Delivery O2 Flow Rate FiO2 09/24/16 07:30 Supplement Oxygen 09/24/16 07:30 79 09/24/16 07:30 36.8 25 114/48 91 3.00 09/24/16 02:36 45 Intake and Output 09/23/16 09/23/16 09/24/16 Cumulative From/Thru 15:00 23:00 07:00 09/21/16 15:43 - 09/24/16 06:27 Intake Total 510 ml 28 ml 4980 ml Output Total 1700 ml 750 ml 6075 ml Balance -1190 ml -722 ml -1095 ml Intake Oral 510 ml 1610 ml IV Total 28 ml 3370 ml Output Urine Total 1400 ml 750 ml 4975 ml Urine/Stool Mix 300 ml 1100 ml # Voids 5 5 # Bowel Movements 2 1 5 Exam General: Awake, Alert, Cooperative, in no acute distress at room air, mild conversational dyspnea. HEENT: Atraumatic, Normocephalic, EOMI, DEVONTE. Dry mucosal membrane. Neck: Atraumatic, Full range of motion, JVD noted. Respiratory: mild bibasilar rales, no wheezes noted, normal respiratory effort, no increased work of breathing. Cardio: regular rate and rhythm, systolic murmur noted. Abdomen: Soft, nontender, nondistended, normoactive bowel sounds. Extremities: Vascular intact, Neuro intact, trace edema in bilateral lower extremities up to the mid tibia. Right groin assess with no bleeding or ecchymosis. Skin: Warm, Dry, No cyanosis. Neurologic: Alert, Oriented, Nonfocal. Psychiatric: Mood/affect normal, Cooperative. IVs and Medications Medications Reviewed: Medications were reviewed in detail Lab and Diagnostics Result Diagram: 09/24/16 0500 09/24/16 0500 Additional Diagnostics 1) Coronary angiography: Right dominance a. Left main is angiographically normal b. LAD is normal caliber with mild luminal irregularities. c. LCx is normal caliber with mild luminal irregularities. d. RCA is normal caliber with mild luminal irregularities. 2) Left Heart catheterization: a. LV systolic pressure 134mmHg. b. LVEDP is elevated at 24 mmHg. c. No significant transaortic gradient on catheter pull-back. 3) Right femoral angiography: right common arteriotomy, just below the inferior hypogastric artery. Given it was a high stick, perclose was use for vascular closure. 4) Right heart cath: saturations obtained after patient off dopamine 2.5mcg/kg/ min for 20 minutes. * RA Mean Pressure 16 mmHg * RV Pressure 63/14 (RVEDP 16 mmHg) * PA Pressure 66/29 (mean 45 mmHg) * PCWP 24 mmHg * PA saturation: 50.9% * Arterial saturation: 89% * Hemoglobin 9.2 g/dL * Indra Cardiac Output 4.88 L/min / Indra Cardiac Index 2.92 L/min/m2 Summary 1) RHC: elevated right and left sided filling pressures with pulmonary hypertension. Normal cardiac output (after being off low dose dopamine drip for 20 minutes). 2) Coronary angiography: No significant angiographic coronary artery disease. Assessment & Plan 81 year old female with a history of diastolic CHF, CKD, HLD, Paroxysmal atrial fibrillation on anticoagulation, and mitral regurgitation sent from clinic by PCP due to SOB and near-syncopal episodes. #. Acute on chronic diasystolic CHF, new, active and improved. -Worsening dyspnea likely due to CHF exacerbation from fluid overload. baseline EF 55 %. -Continue dopamine drip at 2.5 rate. -She has had improved symptoms with regards to her dyspnea and an improved creatinine imply any improved perfusion to her kidney. -Cardiac catheterization on 09/23/16 showed pulmonary hypertension but normal cardiac output and no significant angiographic coronary artery disease. #. GILLIAN on CKD, POA, likely prerenal from diuresis. The patient is improved overnight with IV fluids and dopamine. - pt was on [id number] + aldactone at home. - We will continue dopamine per cardiology and hold diuretics. #. Paroxysmal atrial fibrillation, resolved. Patient is on chronic anticoagulation. - Coumadin was partially reversed yesterday per cardiology for coronary angiogram - Will start Heparin drip until INR is therapeutic. - Continue Warfarin per pharmacy. - Follow clinically. #. 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 -Follow clinically. #. Iron deficiency anemia, chronic. - Continue home Iron. #. 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 - Follow up with for possible transfer. The question has been whether or not a mitral click would be helpful for clinical scenario. We will continue to assess with cardiology. #. Hyperlipidemia, chronic. POA and stable - Resume statin #. GERD, chronic. - Resume Protonix #. Gout, chronic. - Resume home Allopurinol dispo: Patient will be admitted with inpatient status with expectation of inpatient therapy for more than 2 midnights. Waiting for a bed at for transfer. Pain Evaluation: Adequate Pain Control GI Prophylaxis: H2 hola VTE Prophylaxis: Other (heparin bridge with warfarin) VTE Mechanical Devices: Intermittant Pneumatic CD Resuscitation Status: CPR: Attempt Resuscitation Attending Statement The patient was seen and examined with staff. Agree with all attached documentation. Shayla Vazquez DO Sep 24, 2016 11:27 Sherwin Crawford MD Sep 24, 2016 18:22
[2016-09-24] MEDS ORDERED: Alum-Mag Hydrox-Simeth 30 mL Suspension PO ONE (14:15)
--- NOTE | 2016-09-24 15:05 | NUR ---
Social Work: Multidisciplinary Rounds Pt discussed in am rounds. Pt has been accepted at and is awaiting a transfer pending available bed. TOWER OPERATOR to continue to follow pt's care at [facility] until transfer. JEAN MARIE Gifford
[2016-09-24] MEDS ORDERED: Alum-Mag Hydrox-Simeth 30 mL Suspension PO PRN (15:50)
[2016-09-24] MEDS ORDERED: Heparin Protocol Boluses IVPUSH PRN (17:10)
--- NOTE | 2016-09-24 18:21 | PCM.DC.MED ---
Discharge Summary Date of Service Sep 24, 2016 Dates of Hospitalization Date of Hospital Admission Sep 21, 2016 at 20:13 Date of Discharge: Sep 24, 2016 Providers: Admitting Physician: Shannon Ferrara MD Primary Care Physician: Sha Melara MD Attending Physician: Sherwin Crawford MD Diagnosis at Time of Discharge Diagnosis at Time of Discharge #. Acute on chronic diasystolic CHF, new, active and improved. -Worsening dyspnea likely due to CHF exacerbation from fluid overload. baseline EF 55 %. -Continue dopamine drip at 2.5 rate. -She has had improved symptoms with regards to her dyspnea and an improved creatinine imply any improved perfusion to her kidney. -Cardiac catheterization on 09/23/16 showed pulmonary hypertension but normal cardiac output and no significant angiographic coronary artery disease. #. GILLIAN on CKD, POA, likely prerenal from diuresis. The patient is improved overnight with IV fluids and dopamine. - pt was on [id number] + aldactone at home. - We will continue dopamine per cardiology and hold diuretics. #. Paroxysmal atrial fibrillation, resolved. Patient is on chronic anticoagulation. - Coumadin was partially reversed yesterday per cardiology for coronary angiogram - Will start Heparin drip until INR is therapeutic. - Continue Warfarin per pharmacy. - Follow clinically. #. 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 -Follow clinically. #. Iron deficiency anemia, chronic. - Continue home Iron. #. 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 - Follow up with for possible transfer. The question has been whether or not a mitral click would be helpful for clinical scenario. We will continue to assess with cardiology. #. Hyperlipidemia, chronic. POA and stable - Resume statin #. GERD, chronic. - Resume Protonix #. Gout, chronic. - Resume home Allopurinol Hospital course. This patient was readmitted with dyspnea and orthopnea. She initially was diuresed for presumed acute diastolic heart failure felt to be possibly complicated by her moderate mitral regurgitation. The patient had minimal improvement with regards to her breathing and did develop an increase in her creatinine. Cardiology then recommended a dopamine drip at low dose for the next 48 hours. This did appear to improve her breathing and orthopnea resolved. Her renal indices also improved significantly. Etiology had been discussing potential transfer to [facility] for consideration of a mitral clip procedure, all results best to perform angiography prior to this procedure. Angiography was performed on September 23 and the coronary arteries were normal. [facility] was able to accept the patient in transfer on the evening of September 24. She is on chronic anticoagulation with warfarin which was partially reversed for angiogram. She was started on a bridging heparin drip on the and will be transferred on a heparin drip. Procedures Invasive Procedures Cardiac Cath Report Date of Service Sep 23, 2016 Primary Indication Diastolic heart failure Procedure coronary angiography, left heart cath, and right heart cath Vascular Access Right radial artery very small in caliber. Therefore, Right femoral artery using 5 Fr sheath, closure with perclose Right internal jugular vein using 6Fr, closure with manual hold. Diagnostic Catheters Left main: JL4, 5Fr RCA: 3DRC after failure to engage with JR4, 5Fr Procedure Details Coronary angiography details: The patient was brought to the cardiac catheterization lab in the fasting state. Patient was laid supine on the cardiac catheterization table and the right neck and right groin were prepped and draped in the usual sterile fashion. One percent Xylocaine was infiltrated over the right internal jugular vein. Vascular access was then achieved under ultrasound guidance. Patterson was comleted. Then, one percent Xylocaine was infiltrated into the right femoral vessels. Next, a sheath was then placed in the right common femoral artery by the modified Seldinger technique. Guide wire was used to advance the catheter through the sheath and up into aortic sinuses. After coronary angiography was completed, guide wire was advanced through the catheter ahead of the tip of the catheter and the guide wire along with the catheter were pulled together out of the sheath. Medications/Fluoro Time Medications administered: 1.Fentanyl: 50 mcg IV 2. Midazolam: 0.5 mg IV 3. Heparin: 0 units IV 4. Nitroglycerin: 0 mcg IA 5. Verapamil: 0 mg IA Fluoroscopy Time: 483 mGy Fluids administered: none mls Contrast (Isovue): 16 mls Blood loss: 10 mls Findings 1) Coronary angiography: Right dominance a. Left main is angiographically normal b. LAD is normal caliber with mild luminal irregularities. c. LCx is normal caliber with mild luminal irregularities. d. RCA is normal caliber with mild luminal irregularities. 2) Left Heart catheterization: a. LV systolic pressure 134mmHg. b. LVEDP is elevated at 24 mmHg. c. No significant transaortic gradient on catheter pull-back. 3) Right femoral angiography: right common arteriotomy, just below the inferior hypogastric artery. Given it was a high stick, perclose was use for vascular closure. 4) Right heart cath: saturations obtained after patient off dopamine 2.5mcg/kg/ min for 20 minutes. * RA Mean Pressure 16 mmHg * RV Pressure 63/14 (RVEDP 16 mmHg) * PA Pressure 66/29 (mean 45 mmHg) * PCWP 24 mmHg * PA saturation: 50.9% * Arterial saturation: 89% * Hemoglobin 9.2 g/dL * Indra Cardiac Output 4.88 L/min / Indra Cardiac Index 2.92 L/min/m2 Complications There were no periprocedural complications identified. Summary 1) RHC: elevated right and left sided filling pressures with pulmonary hypertension. Normal cardiac output (after being off low dose dopamine drip for 20 minutes). 2) Coronary angiography: No significant angiographic coronary artery disease. Recommendations Will work on arranging for transfer to for significant diastolic heart failure that could be due to rheumatoid arthritis. Complicating issues are mitral regurgitation and atrial fibrillation (paroxysmal). copies to: Neymar Garsia MD; Sha Melara MD, Bhrigu R MD Sep 23, 2016 20:05 <Electronically signed by Alisa Trevizo MD> 09/23/162007 Report status: Signed Transcribed by: GIANFRANCO 09/23/162004 REPORT#: [id number] cc: Sherwin Crawford MD; Neymar Garsia MD; Alisa Trevizo MD; Sha Melara MD Other Diagnostics 1) Coronary angiography: Right dominance a. Left main is angiographically normal b. LAD is normal caliber with mild luminal irregularities. c. LCx is normal caliber with mild luminal irregularities. d. RCA is normal caliber with mild luminal irregularities. 2) Left Heart catheterization: a. LV systolic pressure 134mmHg. b. LVEDP is elevated at 24 mmHg. c. No significant transaortic gradient on catheter pull-back. 3) Right femoral angiography: right common arteriotomy, just below the inferior hypogastric artery. Given it was a high stick, perclose was use for vascular closure. 4) Right heart cath: saturations obtained after patient off dopamine 2.5mcg/kg/ min for 20 minutes. * RA Mean Pressure 16 mmHg * RV Pressure 63/14 (RVEDP 16 mmHg) * PA Pressure 66/29 (mean 45 mmHg) * PCWP 24 mmHg * PA saturation: 50.9% * Arterial saturation: 89% * Hemoglobin 9.2 g/dL * Indra Cardiac Output 4.88 L/min / Indra Cardiac Index 2.92 L/min/m2 Summary 1) RHC: elevated right and left sided filling pressures with pulmonary hypertension. Normal cardiac output (after being off low dose dopamine drip for 20 minutes). 2) Coronary angiography: No significant angiographic coronary artery disease. Brief History 81 yo W h/o rheumatoid arthritis, diastolic heart failure, mitral regurgitation , and CKD admitted with hypotension, lightheadedness, and GILLIAN. Patient was hospitalized earlier this month and was actually seen by me for diastolic heart failure exacerbation at that time. She was discharged home on torsemide 20 mg daily and was doing okay until she developed lightheadedness with any activity. Her dyspnea on exertion is stable but remains a prominent issue for her. Patient states that she has been taking her medications as prescribed and is tired of being sick and being in and out of the hospital. Overnight, patient received gentle IV hydration and feels good at rest but has lightheadedness and dyspnea with exertion. Denies chest pain or syncope. Hospital Course 81 year old female with a history of diastolic CHF, CKD, HLD, Paroxysmal atrial fibrillation on anticoagulation, and mitral regurgitation sent from clinic by PCP due to SOB and near-syncopal episodes. #. Acute on chronic diasystolic CHF, new, active and improved. -Worsening dyspnea likely due to CHF exacerbation from fluid overload. baseline EF 55 %. -Continue dopamine drip at 2.5 rate. -She has had improved symptoms with regards to her dyspnea and an improved creatinine imply any improved perfusion to her kidney. -Cardiac catheterization on 09/23/16 showed pulmonary hypertension but normal cardiac output and no significant angiographic coronary artery disease. #. GILLIAN on CKD, POA, likely prerenal from diuresis. The patient is improved overnight with IV fluids and dopamine. - pt was on [id number] + aldactone at home. - We will continue dopamine per cardiology and hold diuretics. #. Paroxysmal atrial fibrillation, resolved. Patient is on chronic anticoagulation. - Coumadin was partially reversed yesterday per cardiology for coronary angiogram - Will start Heparin drip until INR is therapeutic. - Continue Warfarin per pharmacy. - Follow clinically. #. 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 -Follow clinically. #. Iron deficiency anemia, chronic. - Continue home Iron. #. 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 - Follow up with for possible transfer. The question has been whether or not a mitral click would be helpful for clinical scenario. We will continue to assess with cardiology. #. Hyperlipidemia, chronic. POA and stable - Resume statin #. GERD, chronic. - Resume Protonix #. Gout, chronic. - Resume home Allopurinol dispo: Patient will be admitted with inpatient status with expectation of inpatient therapy for more than 2 midnights. Waiting for a bed at for transfer. Exam Vital Signs (Last) Date Time Temp Pulse Resp B/P Pulse Ox O2 Delivery O2 Flow Rate FiO2 09/24/16 16:29 36.6 70 20 109/48 95 Nasal Cannula 2.00 09/24/16 02:36 45 Exam She was seen and examined on the day of discharge Test 09/21/16 17:07 09/21/16 17:13 09/21/16 21:30 09/22/16 04:35 Troponin T 0.010ug/L (0.0-0.011) Thyroid Stimulating Hormone (TSH) 0.573uIU/mL (0.450-4.500) Hold Blue Top Tube Received (Received) Hold [place] Top Tube Received (Received) Urine Color Yellow (YELLOW) Urine Appearance Hazy (CLEAR,HAZY) Urine pH 5.5 (5.0-8.0) Urine Specific [place] 1.010 (1.003-1.035) Urine Protein Negativemg/dL (NEG,TRACE) Urine Glucose (UA) Negativemg/dL (NEGATIVE) Urine Ketones Negativemg/dL (NEGATIVE) Urine Occult Blood Negative (NEGATIVE) Urine Nitrite Negative (NEGATIVE) Urine Bilirubin Negative (NEGATIVE) Urine Urobilinogen Normalmg/dL (NORMAL) Urine Leukocyte Esterase Negative (NEGATIVE) Urine RBC 0-2/hpf (0-2) Urine WBC 0-5/hpf (0-5) Urine Epithelial Cells Occasional/hpf (NONE-MOD) Urine Crystals None seen (NONE SEEN) Urine Bacteria None/hpf (NONE-FEW) Urine Hyaline Casts Occasional/lpf (NONE) Urine Granular Casts Occasional (NONE SEEN) Urine Waxy Casts None seen (NONE SEEN) Urine Red Blood Cell Casts None seen (NONE SEEN) Urine White Blood Cell Casts None seen (NONE SEEN) Urine Mucus Present (None Seen) Urine Trichomonas None seen (NONE SEEN) Urine Yeast None (NONE SEEN) Urinalysis Comment None Urine Culture Reflexed Not indicated Neutrophils (%) (Auto) 65.3% (40-74) Lymphocytes (%) (Auto) 18.3% (14-46) Monocytes (%) (Auto) 14.2% (4-12) Eosinophils (%) (Auto) 1.0% (0-5) Basophils (%) (Auto) 1.0% (0-3) Phosphorus Level 4.5mg/dL (2.5-4.9) Test 09/23/16 02:30 09/24/16 05:00 09/24/16 16:10 Magnesium Level 2.1mg/dL (1.6-2.6) Total Bilirubin 0.7mg/dL (0.0-1.2) Aspartate Amino Transf (AST/SGOT) 42U/L (0-50) Alanine Aminotransferase (ALT/SGPT) 56U/L (0-32) Alkaline Phosphatase 71U/L (25-165) Total Protein 6.0g/dL (6.4-8.4) Albumin 3.5g/dL (3.4-5.0) White Blood Count 4.3th/mm3 (3.8-10.1) Red Blood Count 2.92mil/mm3 (3.90-5.20) Hemoglobin 8.3g/dL (12.0-15.6) Hematocrit 27.2% (35.0-46.0) Mean Corpuscular Volume 93.2fL (81-100) Mean Corpuscular Hemoglobin 28.4pg (27.0-35.0) Mean Corpuscular Hemoglobin Concent 30.5% (32.0-37.0) Red Cell Distribution Width 17.1% (12.3-15.4) Platelet Count 222bil/L (150-400) Prothrombin Time 16.7sec (8.1-12.5) Prothromb Time International Ratio 1.55ratio Sodium Level 140mEq/L (134-144) Potassium Level 3.5mEq/L (3.5-5.2) Chloride Level 105mEq/L (97-108) Carbon Dioxide Level 23mmol/L (18-29) Blood Urea Nitrogen 38mg/dL (8-27) Creatinine 1.52mg/dL (0.57-1.00) Estimat Glomerular Filtration Rate 47mL/min (>59) Glucose Level 114mg/dL (60-99) Calcium Level 8.6mg/dL (8.5-10.1) Activated Partial Thromboplast Time 36.3sec (22.8-33.0) Discharge Medications Discharge Medications Allopurinol (Allopurinol) 100 Mg Tablet 100 MG PO DAILY (Reported) Biotin (Biotin) 1,000 Mcg Tab.chew 2,500 MCG PO DAILY (Reported) Calcium Carbonate (Calcium) 600 Mg Tablet 600 MG PO BID (Reported) Iron,Carbonyl/Ascorbic Acid (Iron 100-Vitamin C Tablet) 1 Each Tablet 1 EACH PO DAILY Prescribed by: DA ALCARAZ DO Pantoprazole (Pantoprazole ) 40 Mg Tablet.dr 40 MG PO 0630 Prescribed by: CHIOMA MARTÍNEZ Potassium Chloride (Potassium Chloride) 20 Meq Tab.er.prt 20 MEQ PO DAILY TAKE WITH FOOD Prescribed by: DA ALCARAZ DO Rosuvastatin Calcium (Crestor) 10 Mg Tablet 10 MG PO HS (Reported) Spironolactone (Spironolactone) 25 Mg Tablet 12.5 MG PO DAILY (Reported) Torsemide (Demadex) 20 Mg Tablet 20 MG PO DAILY Prescribed by: DA ALCARAZ DO Warfarin Sodium (Warfarin Sodium) 2 Mg Tablet 2 MG PO SAT,TUE,TUE (Reported) Warfarin Sodium (Warfarin Sodium) 1 Mg Tablet 1.5 MG PO MON,TUE,FABIÁN,FRI ( Reported) As needed Albuterol Neb Soln (Albuterol Neb Soln) 2.5 Mg/3 Ml Vial.neb 2.5 MG INHALATION Q4H PRN PRN For Shortness of Breath (Reported) Miscellaneous Medications Cyanocobalamin (Vitamin B-12) (Vitamin B-12) 1,000 Mcg Tablet 2,500 MCG PO ( Reported) Followup Plan Disposition: Transfer to [facility], inpatient status Time spent 45 minutes Sherwin Crawford MD Sep 24, 2016 18:21
--- NOTE | 2016-09-24 19:34 | NUR ---
Tele/Groin/Díaz/Pain/Heparin Patient a/o x 3, [place] r/t wax build up in ear. VSS, tele SR 70's. Díaz d/c'd this a.m. patient voided x 1. Patient c/o abd cramping, having several loose stools this shift. Patient taking diet well. Right groin site c/d/i. Bilat pedal pulses palpable. Heparin gtt started this a.m. Plan for transfer to this evening. Report given to Rhoda ALMARAZ.
--- NOTE | 2016-09-24 20:17 | NUR ---
Transfer Report given to Rand ALMARAZ from [facility]. Report to Beth ALMARAZ [facility]. Pt left with belonging, charts and paperwork. Tx with Dopamine and Heparin gtt infusing during transport. Pt left the building at 1921. [facility]. Addendum: 09/24/16 at 2049 by ARNOLD ORTIZ RN Correction: Pt left around 2014.
== END 2016-09-24 20:15 | disposition short-term general hospital (02) | DRG 287 ==
LOC: SED 15:23 → PCC 20:13 → OBSVTOIN 20:13 → CCU 09-23 20:09 → PCC 09-24 01:49
PROVIDERS: ADMIT Internal Medicine; ATTEND Internal Medicine
PROC: 4A023N8 Measurement of Cardiac Sampling and Pressure, Bilateral, Percutaneous Approach (ICD-10-PCS; principal; 2016-09-23)
PROC: B2161ZZ Fluoroscopy of Right and Left Heart using Low Osmolar Contrast (ICD-10-PCS; 2016-09-23)
DX: I50.33 Acute on chronic diastolic (congestive) heart failure (principal); N17.9 Acute kidney failure, unspecified; M05.30 Rheumatoid heart disease with rheumatoid arthritis of unspecified site; T46.2X1A Poisoning by other antidysrhythmic drugs, accidental (unintentional), initial encounter; I48.0 Paroxysmal atrial fibrillation; Z79.01 Long term (current) use of anticoagulants; E86.0 Dehydration; I95.1 Orthostatic hypotension; N18.9 Chronic kidney disease, unspecified; I08.1 Rheumatic disorders of both mitral and tricuspid valves; D50.9 Iron deficiency anemia, unspecified; E78.5 Hyperlipidemia, unspecified; K21.9 Gastro-esophageal reflux disease without esophagitis; M10.9 Gout, unspecified; Z87.891 Personal history of nicotine dependence